=== PATIENT | female | born 1980 | race Caucasian/White ===

== ENCOUNTER → 2016-08-30 | Outpatient (CLI) | payer BC ==
[~2016-08-30] MED LIST: ASPEC81 PO; ASPI81TA28 PO; ATOR10TA88 PO; CMD/25 PO; CRDCD120 PO; ESCI1TAB6 PO; INDSR60 PO; LORA-741 PO; LPT10 PO; LSX40 PO; METH-589 PO; METH10TA6 PO; METO25TA3 PO; PLV75 PO; POTA10CA28 PO; PRED10TA PO; PRENTAB26 PO; TPZ5 PO; WARF5TAB7 PO
--- NOTE | 2016-08-30 13:52 | MAMMOGRAPHY REPORT ---
BILATERAL DIGITAL SCREENING MAMMOGRAM TOMOSYNTHESIS WITH CAD: 08/30/2016 CLINICAL HISTORY: Routine screening. Patient has no complaints. TECHNIQUE: Breast tomosynthesis in addition to standard 2D mammography was performed. Current study was also evaluated with a Computer Aided Detection (CAD) system. COMPARISON: Comparison is made to exam dated: 08/24/2015 mammogram - [facility]. BREAST COMPOSITION: There are scattered areas of fibroglandular density in both breasts. FINDINGS: No suspicious masses, calcifications, or areas of architectural distortion are noted in e ither breast. There has been no significant interval change compared to prior exams. Circumscribed benign-appearing 8 mm mass within the right upper outer quadrant is stable compared to the 2016 exam , and likely represents an intramammary lymph node. IMPRESSION: ACR BI-RADS CATEGORY 2: BENIGN There is no mammographic evidence of malignancy. A 1 year screening mammogram is recommended. The p atient will receive written notification of the results. Approximately 10% of breast cancers are not detected with mammography. A negative mammographic repor t should not delay biopsy if a clinically suggestive mass is present. Aleah Caba M.D. ah/:08/30/2016 12:39:56 Group Counselor: Sonia ARRIOLA(Prakash)(Leonel), [facility] letter sent: Normal 1/2 BI-RADS Code: ACR BI-RADS Category 2: Benign
== END | disposition home or self-care (01) ==
LOC: C.MAMM 09:03
PROVIDERS: ATTEND Family Medicine
DX: Z12.31 Encounter for screening mammogram for malignant neoplasm of breast (principal)

== ENCOUNTER 2017-02-14 12:53 | Emergency (ER) | payer BC ==
[~2017-02-14] VITALS: Ht 162.6 cm; Wt 80.6 kg
[2017-02-14 13:00] VITALS: Ht 162.6 cm; Wt 80.6 kg
[2017-02-14] MEDS ORDERED: METH-589 PO (13:10)
--- NOTE | 2017-02-14 14:03 | DIAGNOSTIC IMAGING REPORT ---
RIGHT WRIST 5 VIEWS CLINICAL HISTORY: Right wrist injury. FINDINGS: 5 views of the right wrist are obtained. No prior studies are available for comparison at the time of dictation. The skeletal structures are well mineralized. No fracture is seen. There is mild negative ulnar variance. The joint spaces of the wrist are preserved. The overlying soft tissues are within normal limits. A ring is present on the fourth finger. IMPRESSION: There is no radiographic evidence of right wrist fracture. Electronically signed by: Caesar Hernandez M.D. 02/14/2017 2:02 PM Dictated Date/Time: 02/14/2017 2:00 PM
--- NOTE | 2017-02-14 14:18 | EMERGENCY ROOM VISIT NOTE ---
ED Visit Note First contact with patient: 13:08 CHIEF COMPLAINT: Right arm injury 2 hours ago HISTORY OF PRESENT ILLNESS: Patient is a [id number] 86-year-old white female who presents to the emergency department for evaluation of pain in her right wrist. She states that the head of a jet ski accidentally closed on her right forearm about 2 hours ago while she was cleaning it. She notes pain in the ulnar aspect of the wrist that is worse with movement, including flexion. She applied ice but did not take any medications. She rates her pain an 8/10. She denies numbness or tingling. REVIEW OF SYSTEMS: Review of systems as per HPI. All other systems reviewed were negative. At least 6 systems reviewed. PMH: Electronic medical records are reviewed and summarized as above/below. See Problem List. SOCIAL HISTORY: Patient lives at home. PHYSICAL EXAM: Vital Signs: Reviewed Nurse's notes. CONSTITUTIONAL: Patient is a well-appearing 36-year-old white female who is awake and alert and laying on a gurney in no acute distress. She denies pack on her right forearm. MUSCULOSKELETAL: Examination of the right forearm do not demonstrate any obvious outward signs of trauma including significant soft tissue swelling or ecchymosis or laceration. She is tender to palpation over the ulnar aspect of the wrist. No pain over the radial aspect or over the anatomic snuffbox. She does not have any pain into the carpal or metacarpal region. She is pain with wrist extension and flexion. Elbow was nontender to palpation. Pronation and supination are full. Capillary refills less than 2 seconds. Distal pulses are intact. Sensation is intact. EMERGENCY DEPARTMENT COURSE: X-rays of the right wrist were obtained and negative for acute fracture. Patient was placed in a Velcro wrist lacer. Supportive care measures were discussed. Differential diagnosis includes fracture, contusion, sprain, neurovascular injury, compartment syndrome, among others. Medication reconciliation: I attest that I have personally reviewed the patient' s current medication list. Blood pressure screening : Patient was found to have normal blood pressure on screening and does not require follow-up. RIGHT WRIST 5 VIEWS CLINICAL HISTORY: Right wrist injury. FINDINGS: 5 views of the right wrist are obtained. No prior studies are available for comparison at the time of dictation. The skeletal structures are well mineralized. No fracture is seen. There is mild negative ulnar variance. The joint spaces of the wrist are preserved. The overlying soft tissues are within normal limits. A ring is present on the fourth finger. IMPRESSION: There is no radiographic evidence of right wrist fracture. Problem List Medical Problems: (1) Abdominal pain Status: Resolved (2) Acute cholecystitis Status: Resolved (3) Leukocytosis Status: Resolved (4) Sludge in gallbladder Status: Resolved Surgical Problems: (1) Hx laparoscopic cholecystectomy Status: Resolved (2) S/P appendectomy Status: Resolved Current/Historical Medications Scheduled Methimazole (Methimazole ), 5 MG PO DAILY Allergies Coded Allergies: No Known Allergies (Verified , 06/10/03) Vital Signs Date Time Temp Pulse Resp B/P (MAP) Pulse Ox O2 Delivery O2 Flow Rate FiO2 02/14/17 14:26 36.8 64 18 110/70 99 02/14/17 13:00 36.8 67 18 114/79 99 Room Air Departure Information Impression Primary Impression: Forearm contusion Referrals Sonia Robertson D.O. (PCP) Patient Instructions [facility] Additional Instructions Ibuprofen(Motrin, Advil) may be used for fever or pain. Use 600mg every six hours as needed. Take with food. Avoid using more than 2400mg in a 24 hour period. Do not use 2400mg per day for more than three consecutive days without physician direction. Prolonged inappropriate use can lead to stomach upset or ulcers. This medication can be taken if you need to drive, work, or perform activities which may be dangerous when taking narcotic pain medication. (AND/OR) Acetaminophen(Tylenol) may be used for fever or pain. Use 1000mg every six hours as needed. Avoid using more than 3000mg in a 24 hour period. This medication can be taken if you need to drive, work, or perform activities which may be dangerous when taking narcotic pain medication. Ice compresses for 20 minutes at a time four times daily for 2-3 days. Use the wrist lacer as instructed. Rest and elevate your injury. Continue current medications. Return to the ER immediately for any numbness, tingling, severe pain, extreme swelling in the extremity or as needed. Followup with your family doctor or orthopedic surgery if no improvement in 5-7 days.
[2017-02-14 14:26] VITALS: BP 110/70; PULSE 64; TEMP 36.8; O2SAT 99
[2017-03-07] MEDS ORDERED: PRED10TA PO (14:52)
[2017-03-07] MEDS ORDERED: TPZ5 PO (14:52)
[2017-03-07] MEDS ORDERED: CRDCD120 PO (14:52)
[2017-03-07] MEDS ORDERED: INDSR60 PO (14:52)
[2017-03-07] MEDS ORDERED: ASPEC81 PO (14:52)
[2017-03-07] MEDS ORDERED: LPT10 PO (14:52)
[2017-03-07] MEDS ORDERED: PLV75 PO (14:52)
[2017-04-07] MEDS ORDERED: CMD/25 PO (15:55)
[2017-04-07] MEDS ORDERED: PRENTAB26 PO (15:55)
== END 2017-02-14 14:25 | disposition home or self-care (01) ==
LOC: C.EDB 12:54 → C.EDD 14:25
DX: S50.11XA Contusion of right forearm, initial encounter (principal); W22.8XXA Striking against or struck by other objects, initial encounter

== ENCOUNTER 2017-03-03 01:19 | Inpatient (IN) | payer BC ==
[2017-03-03] VITALS (56 sets, daily range): BP systolic 102–148; BP diastolic 55–97; PULSE 70–108; TEMP 36.6; O2SAT 95–100; Ht 162.6 cm; Wt 79.4 kg
[~2017-03-03] VITALS: Ht 162.6 cm; Wt 79.4 kg
[~2017-03-03 01:19] MED LIST changes: -ASPEC81 PO; -ASPI81TA28 PO; -ATOR10TA88 PO; -CMD/25 PO; -CRDCD120 PO; -ESCI1TAB6 PO; -INDSR60 PO; -LORA-741 PO; -LPT10 PO; -LSX40 PO; -METH10TA6 PO; -METO25TA3 PO; -PLV75 PO; -POTA10CA28 PO; -PRED10TA PO; -PRENTAB26 PO; -TPZ5 PO; -WARF5TAB7 PO
[2017-03-03] MEDS ORDERED: HEPARIN SOD (PORCINE) 1000 UNIT/ML 10 ML VIAL ONE (01:25)
[2017-03-03] MEDS ORDERED: MIDAZOLAM HCL 1 MG/ML 2ML VIAL IV STA (01:25)
[2017-03-03] MEDS ORDERED: NiCARDipine HCL INJ 2.5 MG/ML 10 ML AMP ONE (01:25)
[2017-03-03] MEDS ORDERED: NITROGLYCERIN/D5W 100MCG/ML 20ML SYR ONE (01:26)
[2017-03-03] MEDS ORDERED: MIDAZOLAM HCL 1 MG/ML 2ML VIAL ONE ×2 (01:26→01:27)
[2017-03-03] MEDS ORDERED: FENTANYL CITRATE INJ 50 MCG/1 ML 2 ML VIAL ONE ×2 (01:26→02:00)
[2017-03-03 01:35] LABS: ISTAT CREATININE 0.5 mg/dl (0.6-1.3); ISTAT HEMOGLOBIN 14.3 g/dl (12.0-16.0); ISTAT IONIZED CALCIUM 1.14 mmol/l (1.12-1.32)
[2017-03-03 01:39] LABS: BASO % 0.1 %; BASO ABS # 0.01 K/uL (0-0.2); COMPLETE YES; EOS % 1.9 %; HEMATOCRIT 41.8 % (37-47); IG% 0.4 %; LYMPH % 33.5 %; LYMPH ABS # 2.86 K/uL (1.2-3.4); MEAN CELL VOLUME 86.2 fL (80-100); MEAN CORPUSCULAR HEMOGLOBIN 30.5 pg (25-34); MEAN CORPUSCULAR HGB CONC 35.4 g/dl (32-36); MEAN PLATELET VOLUME 9.3 fL (7.4-10.4); MONO % 13.7 %; NEUT % 50.4 %; PLATELET COUNT 333 K/uL (130-400); RED BLOOD COUNT 4.85 M/uL (4.2-5.4); WHITE BLOOD COUNT 8.54 K/uL (4.8-10.8)
[2017-03-03] MEDS ORDERED: DC ALL ANTICOAGULANTS ONE (01:45)
[2017-03-03] MEDS ORDERED: ONDANSETRON INJ 2 MG/ML 2 ML VIAL ONE (01:48)
[2017-03-03 01:51] LABS: PARTIAL THROMBOPLASTIN RATIO 0.9; PROTHROMBIN TIME (PATIENT) 10.2 SECONDS (9.0-12.0)
[2017-03-03] MEDS ORDERED: METOPROLOL TARTRATE 1 MG/ML VIAL ONE ×2 (01:53→08:38)
[2017-03-03 01:55] LABS: BLOOD UREA NITROGEN 7 mg/dl (7-18); BUN/CREATININE RATIO 11.2 (10-20); CALCIUM 8.6 mg/dl (8.5-10.1); CARBON DIOXIDE 21 mmol/L (21-32); CHLORIDE 110 mmol/L (98-107); CREATININE 0.61 mg/dl (0.60-1.20); GLUCOSE 113 mg/dl (70-99); POTASSIUM 3.3 mmol/L (3.5-5.1); SODIUM 142 mmol/L (136-145)
--- NOTE | 2017-03-03 01:56 | EMERGENCY ROOM VISIT NOTE ---
History Report prepared by Riki: Andrea Hernandez Under the Supervision of: Dr. Adama Carney M.D. First contact with patient: 01:23 Chief Complaint: HEART ALERT Stated Complaint: HEART ALERT History of Present Illness The patient is a 36 year old female who presents to the Emergency Room with complaints of sudden chest pain occurring prior to arrival. The patient states that she was sleeping, and she got crushing chest pain that radiated into her left arm and jaw. The patient denies any nausea or vomiting. She states that she does not have a history of heart issues. She states that she has not been doing any drugs, and she has not drank any alcohol, though she drank a few nights ago. The patient states that the pain is not worsened with movement. Source of History: patient Onset: prior to arrival Position: chest Quality: other (crushing) Timing: other (sudden) Associated Symptoms: No nausea, No vomiting Review of Systems See HPI for pertinent positives & negatives. A total of 10 systems reviewed and were otherwise negative. Past Medical & Surgical Medical Problems: (1) Abdominal pain (2) Acute cholecystitis (3) Leukocytosis (4) Sludge in gallbladder Surgical Problems: (1) Hx laparoscopic cholecystectomy (2) S/P appendectomy Family History FH: cancer FH: gallbladder disease FH: heart disease Hypertension Social History Smoking Status: Never Smoker Alcohol Use: none Drug Use: none Marital Status: Housing Status: lives with family Occupation Status: employed Current/Historical Medications Scheduled Methimazole (Methimazole ), 5 MG PO DAILY Allergies Coded Allergies: No Known Allergies (Verified , 03/03/17) Physical Exam Vital Signs Date Time Temp Pulse Resp B/P (MAP) Pulse Ox O2 Delivery O2 Flow Rate FiO2 03/03/17 03:16 84 17 115/72 (84) 98 03/03/17 03:05 85 17 124/76 (94) 97 03/03/17 01:58 36.6 83 18 115/72 99 Room Air 03/03/17 01:28 100 Nasal Cannula 03/03/17 01:28 36.7 114 18 145/85 100 Nasal Cannula 2.0 03/03/17 01:22 108 Physical Exam GENERAL: Patient is anxious appearing in moderate distress. HEENT: No acute trauma, normocephalic atraumatic, mucous membranes moist, no nasal congestion, no scleral icterus. NECK: No stridor, no adenopathy, no meningismus, trachea is midline. LUNGS: No dyspnea. Clear to auscultation and equal bilaterally. No wheeze, no rhonchi. HEART: Tachycardic rate and rhythm. No murmurs, rubs, gallops appreciated. ABDOMEN: Soft, nontender, bowel sounds positive, no masses appreciated, no peritonitis. BACK: No midline tenderness, no CVA tenderness EXTREMITIES: Normal motion all extremities, no cyanosis, no edema. NEUROLOGIC: Alert and oriented, no acute motor or sensory deficits, no focal weakness, cranial nerves grossly intact. SKIN: No rash, no jaundice, no diaphoresis. Medical Decision & Procedures ER Provider Diagnostic Interpretation: X ray results are stated below per my interpretation: Chest: 1 view: No infiltrate, no effusion, normal cardiac border. Normal Mediastinum Laboratory Results 03/03/17 00:48 Red Blood Count 4.85, Mean Corpuscular Volume 86.2, Mean Corpuscular Hemoglobin 30.5, Mean Corpuscular Hemoglobin Concent 35.4, Mean Platelet Volume 9.3, Neutrophils (%) (Auto) 50.4, Lymphocytes (%) (Auto) 33.5, Monocytes (%) (Auto) 13.7, Eosinophils (%) (Auto) 1.9, Basophils (%) (Auto) 0.1, Neutrophils # (Auto ) 4.31, Lymphocytes # (Auto) 2.86, Monocytes # (Auto) 1.17, Eosinophils # (Auto ) 0.16, Basophils # (Auto) 0.01 03/03/17 00:48 Test 03/03/17 00:48 03/03/17 01:22 03/03/17 01:23 03/03/17 02:18 White Blood Count 8.54 K/uL (4.8-10.8) Red Blood Count 4.85 M/uL (4.2-5.4) Hemoglobin 14.8 g/dL (12.0-16.0) Hematocrit 41.8 % (37-47) Mean Corpuscular Volume 86.2 fL (80-100) Mean Corpuscular Hemoglobin 30.5 pg (25-34) Mean Corpuscular Hemoglobin Concent 35.4 g/dl (32-36) Platelet Count 333 K/uL (130-400) Mean Platelet Volume 9.3 fL (7.4-10.4) Neutrophils (%) (Auto) 50.4 % Lymphocytes (%) (Auto) 33.5 % Monocytes (%) (Auto) 13.7 % Eosinophils (%) (Auto) 1.9 % Basophils (%) (Auto) 0.1 % Neutrophils # (Auto) 4.31 K/uL (1.4-6.5) Lymphocytes # (Auto) 2.86 K/uL (1.2-3.4) Monocytes # (Auto) 1.17 K/uL (0.11-0.59) Eosinophils # (Auto) 0.16 K/uL (0-0.5) Basophils # (Auto) 0.01 K/uL (0-0.2) RDW Standard Deviation 37.6 fL (36.4-46.3) RDW Coefficient of Variation 11.8 % (11.5-14.5) Immature Granulocyte % (Auto) 0.4 % Immature Granulocyte # (Auto) 0.03 K/uL (0.00-0.02) Prothrombin Time 10.2 SECONDS (9.0-12.0) Prothromb Time International Ratio 1.0 (0.9-1.1) Activated Partial Thromboplast Time 24.0 SECONDS (21.0-31.0) Partial Thromboplastin Ratio 0.9 Est Creatinine Clear Calc Drug Dose 133.0 ml/min Estimated GFR () 136.1 Estimated GFR (Non- 117.5 BUN/Creatinine Ratio 11.2 (10-20) Calcium Level 8.6 mg/dl (8.5-10.1) Magnesium Level 1.8 mg/dl (1.8-2.4) Total Creatine Kinase 52 U/L (26-192) Creatine Kinase MB 2.2 ng/ml (0.5-3.6) Creatine Kinase MB Ratio 4.2 (0-3.0) Troponin I 0.457 ng/ml (0-0.045) Triglycerides Level 189 mg/dl (0-150) Cholesterol Level 189 mg/dl (0-200) HDL Cholesterol 43 mg/dl LDL Cholesterol Direct 119 mg/dl LDL Cholesterol, Calculated mg/dl VLDL Cholesterol, Calculated 38 mg/dl Cholesterol/HDL Ratio 4.4 Bedside Hemoglobin 14.3 g/dl (12.0-16.0) Bedside Hematocrit 42 % (37-47) Bedside Sodium 140 mEq/L (135-144) Bedside Potassium 3.2 mEq/L (3.3-5.0) Bedside Chloride 107 mEq/L (101-112) Bedside Total CO2 18 mEq/l (24-31) Anion Gap 18.0 mmol/L (16-25) Bedside Blood Urea Nitrogen 5 mg/dl (7-18) Bedside Creatinine 0.5 mg/dl (0.6-1.3) Bedside Glucose (other) 116 mg/dl (70-99) Bedside Ionized Calcium (Nichol) 1.14 mmol/l (1.12-1.32) Bedside Troponin I 0.300 ng/ml (0-0.045) Kaolin Activated Coagulation Time 345 SECONDS (94-140) Laboratory results as reviewed by me. Medications Administered Medications (Trade) Dose Ordered Sig/Charito Route Start Time Stop Time Status Last Admin Dose Admin Midazolam HCl (Versed Inj) 1 mg NOW STAT IV 03/03/17 01:25 03/03/17 01:26 DC 03/03/17 01:29 1 MG ECG Indication: chest pain Rate (beats per minute): 101 Rhythm: sinus tachycardia Findings: ST depression (Anterior lead V1 and V2), ST elevation (Inferior and lateral) ED Course 0120: The patient was evaluated in room B1. A complete history and physical exam was performed. 0125: I discussed the patient's case with Dr. Maza, Cardiology, and he agrees that the patient has to go to the Breastfeeding Program Coordinator. I ordered Heparin IV Bolus 31212 units IV, Cardene IV 25mg IV, Versed inj 1mg IV 0126: Nitroglycerine/ D5w 100mcg/PA 20ML syringe 2000mcg IV, Heparin Sod/ NS 2 Units/PA 3000unit IV, Fentanyl Inj 100mcg IV, Versed Inj 2mg IV 0129: Discussed the patient's case with Dr. Paulson. The patient will be evaluated for further treatment and disposition. 0135: The patient is en route to the Breastfeeding Program Coordinator Medical Decision Differential: Cardiac Ischemia (STEMI, NSTEMI, Unstable Angina, etc), Aortic Dissection, Arrhythmia, Pulmonary Embolism, Pneumonia, Pneumothorax, MSK, Infectious, Pericarditis/Myocarditis, Esophageal Rupture, Gastrointestinal, amongst other pathologies entertained. 36 yr old female arrives from home via EMS after awaking with crushing left chest pain to shoulder/arm. STEMI by EKG in field thus called heart alert prior to arrival. Hypotensive with SLNTG thus given fluids by EMS in addition to ASA 324mg PO. Fentanyl IV with improvement in symptoms. On arrival BP improved and patient noting pain much better though is now in right arm as well. Repeat EKG consistent with large area STEMI. CXR clear without mediastinal widening. Excellent pulses bilateral lower legs. Mild tachy though this likely is due to anxiety with situation. Given Versed to help calm patient en route to pie bakery laborer. Dr Johnson Interventionalist at bedside at agrees with plan for cath. Taken to cath with good Cr and mild Trop elevation. Dr Johnson contacted post cath requesting I order CTA Chest as patient with right coronary spasm but no occlusion. CTA negative for dissection and report forwarded to hospitalist. Medication Reconcilliation Current Medication List: was personally reviewed by me Blood Pressure Screening Patient's blood pressure: Elevated blood pressure Blood pressure disposition: Elevated BP felt to be situational Consults Consulting Physician: Dr. Maza, Cardiology I discussed the patient's case with Dr. Maza, Cardiology, and he agrees that the patient has to go to the Breastfeeding Program Coordinator. Additional Consults: Time Called: 0127 Consulted Physician: Dr. Paulson Returned Call: 0129 Additional Comments: Discussed the patient's case with Dr. Paulson. The patient will be evaluated for further treatment and disposition. Impression Primary Impression: STEMI (ST elevation myocardial infarction) Critical Care I have personally spent greater than 35 minutes of critical care time in the direct management of this patient. This was a life/limb threatening event. This includes time spent evaluating patient, direct bedside care, chart review, placing orders, interpretation of diagnostic studies, discussion with consultants, patient, and family members, as well as other required patient management activities. This 35 minutes is in excess of all separately billable procedures. Scribe Attestation The scribe's documentation has been prepared under my direction and personally reviewed by me in its entirety. I confirm that the note above accurately reflects all work, treatment, procedures, and medical decision making performed by me. Departure Information Dispostion Being Evaluated By Hospitalist Referrals Sonia Robertson D.O. (PCP) Forms WORK / SCHOOL INSTRUCTIONS, HOME CARE DOCUMENTATION FORM, IMPORTANT VISIT INFORMATION Patient Instructions My [facility]
[2017-03-03 02:12] LABS: CKMB/CK RATIO 4.2 (0-3.0)
[2017-03-03] MEDS ORDERED: EPTIFIBATIDE 0.75 MG/ML 75MG VIAL IV ONE (02:42)
[2017-03-03] MEDS ORDERED: EPTIFIBATIDE 2 MG/ML 10 ML VIAL IV ONE (02:42)
[2017-03-03] MEDS ORDERED: ATROPINE SULFATE 0.1 MG/ML 5ML SYR IV PRN (02:45)
[2017-03-03] MEDS ORDERED: OPTIRAY 320 IV PRN (02:45)
[2017-03-03] MEDS ORDERED: NITROGLYCERIN 0.4 MG SL PER TAB CHARGE SL PRN (02:45)
[2017-03-03] MEDS ORDERED: LORAZEPAM 0.5 MG TAB PO PRN (02:45)
[2017-03-03] MEDS ORDERED: ACETAMINOPHEN 325 MG TAB PO PRN (02:45)
[2017-03-03] MEDS ORDERED: ONDANSETRON INJ 2 MG/ML 2 ML VIAL IV PRN (02:45)
[2017-03-03] MEDS ORDERED: ONDANSETRON INJ 8 MG in DEXTROSE 5% 50ML 50 ML IV PRN (02:45)
[2017-03-03] MEDS ORDERED: EPTIFIBATIDE BOLUS / DRIP IV ONE (02:45)
[2017-03-03] MEDS ORDERED: EPTIFIBATIDE BOLUS / DRIP IV STA ×2 (02:54)
[2017-03-03 03:22] LABS: CHOLESTEROL 189 mg/dl (0-200); CHOLESTEROL/HDL RATIO 4.4; HDL CHOLESTEROL 43 mg/dl; MAGNESIUM 1.8 mg/dl (1.8-2.4); TRIGLYCERIDES 189 mg/dl (0-150); VERY LOW DENSITY LIPOPROT CALC 38 mg/dl
[2017-03-03] MEDS ORDERED: SODIUM CHLORIDE 0.9% 1000ML 1,000 ML IV SCH (03:30)
[2017-03-03] MEDS: EPTIFIBATIDE INJ 75 MG PREMIXED IV SCH ×3 (04:45→11:27)
[2017-03-03] MEDS ORDERED: POTASSIUM CHLR 10 MEQ / WTR 10 MEQ in PREMIXED WATER 100 ML IV STA (04:55)
[2017-03-03] MEDS: NSS + 20MEQ KCL 1000ML 1,000 ML IV SCH ×2 (05:24→15:21)
[2017-03-03] MEDS: MoRPHine SULFATE 2 MG/ML CARP IV PRN ×3 (05:24→23:52)
[2017-03-03 06:06] LABS: MEAN CELL VOLUME 86.6 fL (80-100); MEAN CORPUSCULAR HEMOGLOBIN 30.4 pg (25-34); MEAN CORPUSCULAR HGB CONC 35.1 g/dl (32-36); MEAN PLATELET VOLUME 8.8 fL (7.4-10.4); PLATELET COUNT 275 K/uL (130-400); RED BLOOD COUNT 4.04 M/uL (4.2-5.4); WHITE BLOOD COUNT 11.81 K/uL (4.8-10.8)
--- NOTE | 2017-03-03 06:40 | DIAGNOSTIC IMAGING REPORT ---
CHEST COMBO ANGIOGRAPHY CLINICAL HISTORY: Chest pain TECHNIQUE: Transaxial acquisition with multi axial reformatted images COMPARISON STUDY: None FINDINGS: Normal caliber thoracic aorta. No evidence for aneurysm or dissection. Pulmonary vasculature enhances appropriately. There is subtle reticular nodular changes throughout both hemithoraces. Atypical inflammatory process is considered. No significant hilar or mediastinal adenopathy. IMPRESSION: 1. Negative thoracic aorta. 2. No evidence of pulmonary embolus. 3. Groundglass nodular changes bilaterally with slight interstitial prominence. An atypical inflammatory process is considered. The above report was generated using voice recognition software. It may contain grammatical, syntax or spelling errors. Electronically signed by: Arnie Callaway M.D. 03/03/2017 6:38 AM Dictated Date/Time: 03/03/2017 6:32 AM
[2017-03-03 06:45] LABS: BUN/CREATININE RATIO 8.7 (10-20); CALCIUM 7.9 mg/dl (8.5-10.1); CREATININE 0.52 mg/dl (0.60-1.20); MAGNESIUM 1.6 mg/dl (1.8-2.4); POTASSIUM 4.1 mmol/L (3.5-5.1)
[2017-03-03 06:46] LABS: ESTIMATED AVERAGE GLUCOSE 105 mg/dl; HA1C FLAG Normal (Normal)
[2017-03-03] MEDS ORDERED: MAGNESIUM SULFATE 1GM / D5W 1 GM in PREMIXED IN D5W 100 ML IV STA (06:47)
[2017-03-03] MEDS ORDERED: PERFLUTREN LIPID MICROSPHERE (DEFINITY) IV ONE (06:50)
[2017-03-03 06:57] LABS: PHOSPHORUS 2.1 mg/dl (2.5-4.9)
--- NOTE | 2017-03-03 07:14 | DIAGNOSTIC IMAGING REPORT ---
SINGLE VIEW CHEST CLINICAL HISTORY: Atypical chest pain. FINDINGS: An AP, portable, upright chest radiograph is obtained. No prior studies are available for comparison at the time of dictation. The examination is degraded by portable technique and patient rotation. The cardiomediastinal silhouette is unremarkable. The lungs and pleural spaces are clear. No pneumothorax is seen. The bony thorax is grossly intact. IMPRESSION: No acute cardiopulmonary abnormality. Electronically signed by: Caesar Hernandez M.D. 03/03/2017 7:12 AM Dictated Date/Time: 03/03/2017 7:11 AM
[2017-03-03] MEDS: ASPIRIN 81 MG ECTAB PO SCH (07:45)
[2017-03-03] MEDS: CLOPIDOGREL BISULFATE 75 MG TAB PO SCH (07:46)
[2017-03-03] MEDS: ATORVASTATIN 40 MG TAB PO SCH (07:46)
--- NOTE | 2017-03-03 07:51 | HISTORY & PHYSICAL EXAMINATION ---
DATE OF ADMISSION: 03/03/2017 PRIMARY CARE PHYSICIAN: Dr. Robertson. CHIEF COMPLAINT: Woke up from sleep with severe chest pain. HISTORY OF PRESENT COMPLAINT: She is a 36-year-old female with significant past medical history of hyperthyroidism, apparently woke up from sleep with terrible chest pain associated with nausea, sweating, apprehension, and the pain radiated to left arm. Her called 911 and she was brought into the Emergency Room. EKG did show acute ST elevation MS involving the inferolateral part of the heart. She went to the warehouse laborer and she was noted to have blockage in LAD and that was dilated with balloon angioplasty, and following that she was admitted to ICU for continuation of care. She denies to any chest pain before or any symptoms of heart disease before. She does have borderline high cholesterol but she has not been taking any medications for that. She has been on methimazole for hyperthyroidism, which she takes occasionally when she feels palpitation. She does not have any significant family history of heart disease. PAST MEDICAL HISTORY: Significant for hyperthyroidism. PAST SURGICAL HISTORY: Appendectomy as a child and cholecystectomy. FAMILY HISTORY: Nothing significant. SOCIAL HISTORY: She is . She has 1 daughter. She lives with her . She does not smoke, she drinks very rarely and she has been reasonably ambulant. ALLERGIES: No allergy. MEDICATIONS: She has been on methimazole 5 mg daily and she takes this as needed. She does not take any NSAIDs. REVIEW OF SYSTEMS: CENTRAL NERVOUS SYSTEM: No headache, no blurred vision, no numbness or tingling in the extremities. RESPIRATORY: No fever, chills or rigors. No cough or phlegm. No shortness of breath. CARDIOVASCULAR: Did have severe chest pain with radiation to left arm and left elbow associated with shortness of breath, nausea and dizziness. GASTROINTESTINAL: No abdominal pain, nausea and/or vomiting. GENITOURINARY: No problem with urine and/or bowel habit. MUSCULOSKELETAL: No acute arthritis. GENERAL: She did not have any rash and/or enlargement of lymph nodes. PHYSICAL EXAMINATION: GENERAL: In the ICU, following cardiac cath, she complains of some back pain and she is very anxious, and her chest pain seems to be resolved with nitro. She has had chest pain following cardiac cath in the ICU as well. VITAL SIGNS: Temperature 36.6, pulse 79, blood pressure 123/85, saturation 99%. HEENT: Unremarkable. NECK: Supple. No JVD, no bruit. CHEST: Clear to auscultate bilaterally. HEART: S1, S2 regular, no murmur. ABDOMEN: Soft, benign, nontender, no organomegaly. Bowel sounds present. EXTREMITIES: Negative for any edema. MUSCULOSKELETAL: Did not show any acute arthritis involving any joint. CENTRAL NERVOUS SYSTEM: She is alert, awake, oriented x3. No focal sensory and/or motor deficit appreciated. LABORATORY DATA: Noted today, white count is 8.54, H&H 14.8/41.8, platelet is 333. Sodium 140, potassium 3.2, chloride 107, CO2 of 18, BUN 5, creatinine 0.61. Random glucose 113. Hemoglobin A1c pending. Magnesium 1.8, calcium 8.6. Total CK was 52 and MB 2.2 and MB ratio 4.2. Troponin was 0.457. Triglyceride 189, cholesterol 189, LDL 119, HDL 43. INR 1.0 and PT ratio 0.9. Active coagulation time kaolin was 345. CTA of the Chest::1. Negative thoracic aorta. 2. No evidence of pulmonary embolus. 3. Groundglass nodular changes bilaterally with slight interstitial prominence. An atypical inflammatory process is considered. EKG showed acute ST elevation MS involving inferolateral segment of the heart with reciprocal changes in the anterior leads. IMPRESSION AND PLAN: 1. Acute ST elevation myocardial infarction, inferolateral region. The patient was taken to warehouse laborer and left anterior descending artery was noted to be obstructed which was dilated with balloon angioplasty by Dr. Maza. She has been started on aspirin anticoagulation with Integrilin and also nitrate and cholesterol medications. Another set of troponin will be done to see the trend. She will be followed by cardiology. Most likely she will echocardiogram to evaluate heart function. She still has ST elevation following the cardiac catheterization involving the same region. 2. Hyperlipidemia, seems to be mildly elevated. Her cholesterol level that was done in 03/2016, total cholesterol was 238, HDL 57, LDL 171 and triglyceride 100. She was started on a statin which will be continued. 3. Hyperthyroidism. She has a history of Graves' disease. She has been on methimazole 5 mg daily but she takes it occasionally when she feels palpitation. We will check free T3 and free T4 level and go from there. 4. Gastrointestinal prophylaxis with Protonix. 5. Deep venous thrombosis prophylaxis, has been on Integrilin and will continue that. 6. Code status. Discussed with the patient, she will be a full code. In my clinical judgment, the beneficiary meets criteria as per CMS for 2-midnight stay in the hospital. MTDMatt
--- NOTE | 2017-03-03 08:12 | OPERATIVE REPORT ---
DATE OF OPERATION: 03/03/2017 CATHETERIZATION AND PERCUTANEOUS CORONARY INTERVENTION INDICATION: Chest pain, hyperacute ST elevation, onset at rest in a 36-year-old female with few, if any, risk factors for coronary artery disease. PROCEDURE PERFORMED: Left heart cath, coronary cineangiography, left ventriculography, PTCA apical LAD, radial artery interpretation and supervision method. After local infiltration of 2% lidocaine, a 6-Israeli sheath was placed in the right radial artery. A 6-Israeli AR2 guiding catheter was advanced under fluoroscopic guidance to the central circulation where it was aspirated and flushed. After confirmation of adequate waveform, it was advanced into the right coronary artery. Cineangiograms of the right coronary artery obtained and reviewed. A 0.014-inch pilot plant supervisor wire was advanced through the guiding catheter across the ostial stenosis to the apical RCA. Intracoronary nitroglycerin was administered. Subsequent cineangiograms were obtained and the wire was removed from the coronary artery. The guiding catheter was removed from the right coronary artery under fluoroscopic guidance, removed from the body over wire, the sheath was aspirated and flushed. A 6-Israeli EBU 3.5 guiding catheter was advanced under fluoroscopic guidance to the central circulation where it was aspirated and flushed. After confirmation of adequate waveform, it was advanced into the left main. Cineangiograms of the left coronary artery were obtained and reviewed. A 0.014-inch pilot plant supervisor wire was advanced through the guiding catheter across the apical total occlusion of the LAD. A 2.0 x 15 angioplasty catheter was positioned in the apical LAD and inflated to nominal pressure for less than 1 minute on multiple occasions. Multiple doses of intracoronary nitroglycerin were administered, sublingual nitroglycerin was administered. Final cineangiograms were obtained with the wire removed from the coronary artery, the guiding catheters removed from the left main under fluoroscopic guidance, removed from the body over wire, the sheath was aspirated and flushed. A compression device was applied over the right radial artery. The patient was returned to her room in good condition free of chest pain with persistent hyperacute ST elevation on the monitor. COMPLICATIONS: None. FINDINGS: Left main is normal. Left anterior descending artery is moderate in caliber with an apical flush total occlusion and apical diagonal branch has MAYELA grade 2 flow. Left circumflex, circumflex marginal and posterolateral branches are free of significant disease. The right coronary artery is moderate to large in caliber with an ostial subtotal occlusion that responded to intracoronary nitroglycerin with complete resolution, dye efflux of a deep-seated guide. Posterior descending artery, the posterior extension of right coronary, posterolateral branches arising were all free of significant disease. Final cineangiograms demonstrate persistent MAYELA grade 2 flow in the apical LAD and diagonal branch. No staining, no thrombus, no dissection is noted in the apical LAD. 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 RECOMMENDATIONS: CTA chest is being done on the way to the ICU. No beta jarad is administered. The patient is administered aspirin and Integrilin will be continued until pending results of CTA. I attest to the content of the Intraoperative Record and any orders documented therein. Any exceptions are noted below. MTDD
[2017-03-03] MEDS ORDERED: LORAZEPAM 2 MG/ML 1 ML VIAL IV STA (08:28)
[2017-03-03] MEDS ORDERED: METHYLPREDNISOLONE IV 125 MG in SYRINGE 0 ML IV ONE ×2 (08:30→08:45)
[2017-03-03] MEDS ORDERED: LORAZEPAM 2 MG/ML 1 ML VIAL ONE (08:32)
[2017-03-03] MEDS ORDERED: METOPROLOL TARTRATE 1 MG/ML VIAL IV STA (08:32)
[2017-03-03] MEDS ORDERED: METOPROLOL TARTRATE 25 MG TAB PO ONE (09:07)
[2017-03-03] MEDS ORDERED: DILTIAZEM BOLUS / DRIP IV STA ×2 (09:13→09:19)
[2017-03-03 09:14] LABS: PREG INTERNAL NEGATIVE QC NEG CLEAR BACKGROUND; PREG INTERNAL POSITIVE QC POS CONTROL LINE
--- NOTE | 2017-03-03 09:15 | ECHOCARDIOGRAM REPORT ---
*NOTICE TO RECEIVING LIBERTARIAN AGENCY This information is strictly Confidential and protected under [place] law. [place] law prohibits you from making any further disclosure of this information unless further disclosure is expressly permitted by the written consent of the person to whom it pertains or is authorized by law. A general authorization for the release of medical or other information is not sufficient for this purpose. Hospital accepts no responsibility if the information is made available to any other person, INCLUDING THE PATIENT. Interpretation Summary * Name: AURE DUNAWAY Study Date: 03/03/2017 06:26 AM BP: 129/81 mmHg * Patient Location: E111 HR: 108 * : 1980 (M/d/yyyy) Gender: Female Height: 64 in * Age: 36 yrs Ethnicity: CA Weight: 187 lb * Ordering Physician: DARA DOMINGUEZ DO * Performed By: Penny De La Vega RCS * * Reason For Study: AMI * BSA: 1.9 m2 * -- Conclusions -- * There is normal left ventricular wall thickness. * There is a moderate sized apical and lateral wall motion abnormality with hypokinesis of the segments. * Normal contractility to hyperdynamic contractility is noted in the remaining segments. * Left ventricular systolic function is low normal. * The LV Ejection Fraction = 50-55%. * There is mild tricuspid regurgitation. * The pulmonary artery systolic pressure is normal to borderline elevated , wt PA systolic pressure of 40 mm Hg. Procedure Details * A complete two-dimensional transthoracic echocardiogram was performed (2D, M-mode, Doppler and color flow Doppler). * A contrast injection of Definity was performed to improve assessment of LV function. * Contrast was injected into an intravenous site in the left arm. * One vial of Definity ultrasound contrast was diluted in normal saline to a total volume of 10 ml. A total of '2' ml of solution was administered during imaging. * Lot # [id number] of Definity utilized for procedure. * Expiration date MAR 07. * The attending nurse who injected the contrast agent was TYRONE BOLDEN RN. Left Ventricle * The left ventricle is normal in size. * There is normal left ventricular wall thickness. * Left ventricular systolic function is low normal. * Ejection Fraction = 50-55%. * There is a moderate sized apical and lateral wall motion abnormality with hypokinesis of the segments. Right Ventricle * The right ventricle is normal size. * The right ventricular systolic function is normal as assessed by tricuspid annular plane systolic excursion (TAPSE) (normal >1.5 cm). Atria * The left atrial size is normal. * Right atrial size is normal. * There is no evidence of atrial septal defect, but resolution does not allow assessment for a patent foramen ovale. Mitral Valve * The mitral valve is normal. * There is no mitral valve stenosis. * Significant mitral regurgitation is absent. Tricuspid Valve * The tricuspid valve is normal. * There is no tricuspid stenosis. * There is mild tricuspid regurgitation. Aortic Valve * The aortic valve is trileaflet. * Aortic stenosis is absent. * There is no significant aortic regurgitation. Pulmonic Valve * The pulmonary valve is not well seen, but the Doppler examination is normal without significant regurgitation or stenosis. Great Vessels * The aortic root and proximal ascending aorta are normal sized. Pericardium/Pleural * There is no pericardial effusion. Great Vessels * Normal inferior vena cava diameter and respiratory variation suggests normal central venous pressure. Left Ventricular Diastolic Function * The LV diastolic function is normal. MMode 2D Measurements and Calculations IVSd 1.3 cm IVSs 1.7 cm LVIDd 3.9 cm LVIDs 2.1 cm LVPWd 1.3 cm LVPWs 1.2 cm IVS/LVPW 1.0 FS 47.4 % EDV(Teich) 67.1 ml ESV(Teich) 13.9 ml EF(Teich) 79.3 % EDV(cubed) 60.7 ml ESV(cubed) 8.9 ml EF(cubed) 85.4 % % IVS thick 31.6 % % LVPW thick -4.23 % LV mass(C)d 175.4 grams LV mass(C)dI 92.3 grams/m\S\2 LV mass(C)s 94.7 grams LV mass(C)sI 49.8 grams/m\S\2 SV(Teich) 53.2 ml SI(Teich) 28.0 ml/m\S\2 SV(cubed) 51.8 ml SI(cubed) 27.3 ml/m\S\2 Ao root diam 2.6 cm Ao root area 5.5 cm\S\2 ACS 1.8 cm LA dimension 3.2 cm LA/Ao 1.2 LVOT diam 2.0 cm LVOT area 3.2 cm\S\2 LVAd ap4 32.0 cm\S\2 LVLd ap4 8.0 cm EDV(MOD-sp4) 106.4 ml EDV(sp4-el) 109.5 ml LVAs ap4 20.0 cm\S\2 LVLs ap4 7.1 cm ESV(MOD-sp4) 47.2 ml ESV(sp4-el) 48.1 ml EF(MOD-sp4) 55.6 % EF(sp4-el) 56.0 % SV(MOD-sp4) 59.2 ml SI(MOD-sp4) 31.2 ml/m\S\2 SV(sp4-el) 61.4 ml SI(sp4-el) 32.3 ml/m\S\2 Doppler Measurements and Calculations MV E max barbara 127.8 cm/sec MV P1/2t max barbara 135.4 cm/sec MV P1/2t 88.3 msec MVA(P1/2t) 2.5 cm\S\2 MV dec slope 448.9 cm/sec\S\2 MV dec time 0.18 sec Ao V2 max 152.4 cm/sec Ao max PG 9.3 mmHg Ao max PG (full) 4.6 mmHg YVETTE(V,A) 2.2 cm\S\2 YVETTE(V,D) 2.2 cm\S\2 LV V1 max PG 4.7 mmHg LV V1 max 108.4 cm/sec PA V2 max 125.9 cm/sec PA max PG 6.3 mmHg TR max barbara 331.8 cm/sec
[2017-03-03] MEDS ORDERED: HEPARIN IV LOW DOSE NO BOLUS STA (09:19)
[2017-03-03 09:27] LABS: BENZODIAZEPINE, URINE POS (NEG); COCAINE,URINE NEG (NEG); PHENCYCLIDINE, URINE NEG (NEG)
[2017-03-03] MEDS ORDERED: DILTIAZEM HCL 5 MG/ML 5 ML VIAL IV STA (09:35)
[2017-03-03 09:41] LABS: ALKALINE PHOSPHATASE 79 U/L (45-117); ALT/SGPT 97 U/L (12-78); AST/SGOT 164 U/L (15-37); THYROID STIMULATING HORMONE < 0.005 uIu/ml (0.300-4.500)
[2017-03-03] MEDS ORDERED: DILTIAZEM HCL INJ 125 MG in DEXTROSE 5% 100ML IV PRN (09:45)
[2017-03-03] MEDS ORDERED: PROPRANOLOL HCL 10 MG TAB PO ONE ×2 (10:00→12:00)
--- NOTE | 2017-03-03 10:00 | Cardiology Consultation ---
Cardiology Consultation Date of Consultation: Mar 03, 2017 History of Present Illness Romina Mosley is a 36 year old female seen in cardiology consultation per the request of Dr. Paulson for ongoing care of ST segment elevation myocardial infarction due to severe coronary vasospasm. This is the patient's first encounter with cardiology, her PCP is Dr Sonia Robertson of [facility]. The patient reports that she has a history of hyperthyroidism that dates back several years describes that she has been diagnosed with Graves' disease in the past. She has a long-standing history of associated palpitations. She is supposed to be on methimazole 5 mg daily that she notes that she took this routinely for several years, but recently, she has not been taking it regularly as she has been feeling well. Over the last few days however she has noted increased palpitations. Yesterday, during the day she felt well with no complaints. At approximately midnight she felt acute onset of severe chest discomfort described as a pressure that woke her from sleep. She presents to the emergency department where initial EKG revealed severe inferior and lateral ST segment elevation with reciprocal ST segment depression in the anteroseptal leads. She was taken to the cardiac catheterization laboratory in emergent fashion by the manager reporting guard immigration and was found to have severe vasospasm of the distal LAD as well as the ostium of the right coronary artery. She underwent plain balloon angioplasty of the distal LAD and right coronary artery vasospasm improved somewhat with administration of intracoronary nitroglycerin. The patient has received aspirin and clopidogrel and is on an Integrilin infusion and was transferred to the intensive care unit for ongoing care. She has been found to have hyperthyroidism based on her thyroid indices. She is now in the surgical intensive care unit and is resting comfortably, she notes that she still has a 3/10 intensity chest discomfort which is improved compared to tendon and discomfort that prompted her presentation but she still notes that it is there. She also notes occasional palpitations and several brief runs of nonsustained ventricular tachycardia noted on the monitor. Her follow-up troponin early this morning was elevated at 27 NG per mL. She has had a resting transthoracic echocardiogram which I have reviewed independently and reveals a moderate sized wall motion abnormality encompassing the apical inferoseptum, apical anteroseptal wall, apical wall, and the lateral wall at the apical and mid levels. The remaining myocardial segments contract normally or hyperdynamic contractibility with overall normal left ventricular ejection fraction in the range of 50-55%. Trace to mild tricuspid regurgitation was noted with calculated pulmonary artery systolic pressure at the upper limit of normal to perhaps mildly elevated with a calculated pulmonary artery systolic pressure around 40 mmHg. History Past Medical History: Hyperthyroidism Palpitations previously associated with hyperthyroidism Past Surgical History: Remote appendectomy as a child Cholecystectomy Social History: She is and has a daughter. She was there has been. She does not smoke and she takes alcohol very rarely. Family History: No family history of heart disease she has a grandparent with history of strokes Review Of Systems See above for pertinent positives & negatives. A total of 10 systems reviewed and were otherwise negative. Allergies Coded Allergies: No Known Allergies (Verified , 03/03/17) Medications Reported Home Medications Medications Dose Route/Sig Max Daily Dose Days Date Category Methimazole (Methimazole) 5 Mg Tab 5 Mg PO DAILY 02/14/17 Reported Physical Exam Vital Signs (Last 8hrs): Last 8 Hrs Date Time Temp Pulse Resp B/P (MAP) Pulse Ox O2 Delivery O2 Flow Rate FiO2 03/03/17 08:38 106 124/83 03/03/17 08:32 106 124/83 03/03/17 06:41 106 17 124/83 (102) 99 03/03/17 06:31 97 21 129/80 (91) 99 03/03/17 06:01 93 19 135/87 (107) 99 03/03/17 05:31 96 20 129/81 (88) 99 03/03/17 05:16 99 20 133/88 (93) 100 03/03/17 05:01 100 26 122/86 (89) 100 03/03/17 04:52 84 17 116/80 (90) 99 03/03/17 04:46 73 16 116/90 (93) 100 03/03/17 04:31 79 14 123/85 (96) 99 03/03/17 04:16 70 17 117/84 (99) 100 03/03/17 04:01 86 27 125/83 (91) 100 03/03/17 03:46 76 19 114/79 (87) 99 03/03/17 03:31 74 20 118/69 (92) 100 03/03/17 03:16 84 17 115/72 (84) 98 03/03/17 03:05 85 17 124/76 (94) 97 03/03/17 01:58 36.6 83 18 115/72 99 Room Air General Appearance: Alert and Oriented x3. NAD. Head: Normocephalic Atraumatic. Eyes: PERRLA, EOMI, conjunctiva and sclera clear Neck: Supple. No carotid bruits noted. No JVD. No HJD. Respiratory: Breath sounds clear to auscultation bilaterally. No w/r/r. Cardiovascular: Reg rate and rhythm. S1 and S2 noted. No murmurs, rubs, gallops. PMI non displace. Abdomen: Normal bowel sounds, soft nontender. no abdominal bruits. Extremities: No edema, no clubbing or cyanosis. distal pulses 2/4 bilaterally. Neuro: No focal deficits. Psychiatric: Normal affect. Data Last 24 Hours Test 03/03/17 00:00 03/03/17 00:48 03/03/17 01:22 03/03/17 01:23 Urine Opiates Screen POS Urine Methadone, Qualitative NEG Urine Barbiturates NEG Urine Phencyclidine (PCP) Level NEG Ur Amphetamine/Methamphetamine NEG MDMA (Ecstasy) Screen NEG Urine Benzodiazepines Screen POS Urine Cocaine Metabolite NEG Urine Marijuana (THC) NEG White Blood Count 8.54 K/uL Red Blood Count 4.85 M/uL Hemoglobin 14.8 g/dL Hematocrit 41.8 % Mean Corpuscular Volume 86.2 fL Mean Corpuscular Hemoglobin 30.5 pg Mean Corpuscular Hemoglobin Concent 35.4 g/dl Platelet Count 333 K/uL Mean Platelet Volume 9.3 fL Neutrophils (%) (Auto) 50.4 % Lymphocytes (%) (Auto) 33.5 % Monocytes (%) (Auto) 13.7 % Eosinophils (%) (Auto) 1.9 % Basophils (%) (Auto) 0.1 % Neutrophils # (Auto) 4.31 K/uL Lymphocytes # (Auto) 2.86 K/uL Monocytes # (Auto) 1.17 K/uL Eosinophils # (Auto) 0.16 K/uL Basophils # (Auto) 0.01 K/uL RDW Standard Deviation 37.6 fL RDW Coefficient of Variation 11.8 % Immature Granulocyte % (Auto) 0.4 % Immature Granulocyte # (Auto) 0.03 K/uL Prothrombin Time 10.2 SECONDS Prothromb Time International Ratio 1.0 Activated Partial Thromboplast Time 24.0 SECONDS Partial Thromboplastin Ratio 0.9 Sodium Level 142 mmol/L Potassium Level 3.3 mmol/L Chloride Level 110 mmol/L Carbon Dioxide Level 21 mmol/L Anion Gap 11.0 mmol/L 18.0 mmol/L Blood Urea Nitrogen 7 mg/dl Creatinine 0.61 mg/dl Est Creatinine Clear Calc Drug Dose 133.0 ml/min Estimated GFR () 136.1 Estimated GFR (Non- 117.5 BUN/Creatinine Ratio 11.2 Random Glucose 113 mg/dl Estimated Average Glucose 105 mg/dl Hemoglobin A1c 5.3 % Calcium Level 8.6 mg/dl Magnesium Level 1.8 mg/dl Total Creatine Kinase 52 U/L Creatine Kinase MB 2.2 ng/ml Creatine Kinase MB Ratio 4.2 Troponin I 0.457 ng/ml Triglycerides Level 189 mg/dl Cholesterol Level 189 mg/dl HDL Cholesterol 43 mg/dl LDL Cholesterol Direct 119 mg/dl LDL Cholesterol, Calculated mg/dl VLDL Cholesterol, Calculated 38 mg/dl Cholesterol/HDL Ratio 4.4 Bedside Hemoglobin 14.3 g/dl Bedside Hematocrit 42 % Bedside Sodium 140 mEq/L Bedside Potassium 3.2 mEq/L Bedside Chloride 107 mEq/L Bedside Total CO2 18 mEq/l Bedside Blood Urea Nitrogen 5 mg/dl Bedside Creatinine 0.5 mg/dl Bedside Glucose (other) 116 mg/dl Bedside Ionized Calcium (Nichol) 1.14 mmol/l Bedside Troponin I 0.300 ng/ml Test 03/03/17 01:52 03/03/17 02:18 03/03/17 05:59 03/03/17 09:05 Kaolin Activated Coagulation Time 186 SECONDS 345 SECONDS White Blood Count 11.81 K/uL Red Blood Count 4.04 M/uL Hemoglobin 12.3 g/dL Hematocrit 35.0 % Mean Corpuscular Volume 86.6 fL Mean Corpuscular Hemoglobin 30.4 pg Mean Corpuscular Hemoglobin Concent 35.1 g/dl RDW Standard Deviation 37.3 fL RDW Coefficient of Variation 11.7 % Platelet Count 275 K/uL Mean Platelet Volume 8.8 fL Sodium Level 138 mmol/L Potassium Level 4.1 mmol/L Chloride Level 108 mmol/L Carbon Dioxide Level 23 mmol/L Anion Gap 7.0 mmol/L Blood Urea Nitrogen 5 mg/dl Creatinine 0.52 mg/dl Est Creatinine Clear Calc Drug Dose 156.8 ml/min Estimated GFR () 143.5 Estimated GFR (Non- 123.8 BUN/Creatinine Ratio 8.7 Random Glucose 110 mg/dl Calcium Level 7.9 mg/dl Phosphorus Level 2.1 mg/dl Magnesium Level 1.6 mg/dl Troponin I 26.700 ng/ml Free Thyroxine 2.78 ng/dl Free Triiodothyronine 7.67 pg/ml Human Chorionic Gonadotropin, Quant < 1 mIU/mL Urine Test NEG Test 03/03/17 09:29 Last Resulted 03/03/17 05:59 Last Resulted 03/03/17 05:59 Past 24 Hours Test 03/03/17 00:48 03/03/17 05:59 03/03/17 09:29 Range/Units Creatine Kinase MB 2.2 0.5-3.6 ng/ml Creatine Kinase MB Ratio 4.2 H 0-3.0 Prothromb Time International Ratio 1.0 0.9-1.1 Prothrombin Time 10.2 9.0-12.0 SECONDS Total Creatine Kinase 52 26-192 U/L Troponin I 0.457 *H 26.700 *H 0-0.045 ng/ml EKG tracings as summarized in history of present illness, initial EKG performed on presentation at 1:23 AM revealed severe inferior and lateral ST segment elevation with reciprocal ST segment depression in the anteroseptal leads. Her most recent EKG performed at 2:48 AM on 03/03/[address] segment depression, inferolateral ST segment elevation is improved to some degree, but is still present. CT chest is negative for dissection. Echocardiogram as noted above Assessment & Plan Impression: 36-year-old female 1. Inferior, lateral ST segment elevation myocardial infarction due to coronary artery vasospasm in the setting of hyperthyroidism -Several short runs of nonsustained ventricular tachycardia. -Subjective palpitations noted prior to hospital arrival before the onset of her chest pain yesterday. 2. Residual chest pain noted, likely due to ongoing coronary vasospasm. 3. Hyperthyroidism noted with free T4 of 2.78, free T3 of 7.67, TSH is currently pending 4. Hypomagnesemia Discussion/recommendations: The patient received plain balloon angioplasty to the apical portion of the LAD , severe ostial vasospasm right coronary artery was noted which responded to some degree in the Business Management Associate with administration of intracoronary vasospasm. Patient is much improved clinically, but still has residual ST segment elevation most recent EKG, as elevated troponin, has ongoing 3/10 intensity chest discomfort. Chest thoracic echocardiogram performed this morning reveal independently reveals septal, apical, lateral wall motion abnormality with normal to hyperdynamic function in the remaining segments and low normal LVEF. Hopefully all motion abnormality represents stunned myocardium and will improve with treatment, but it is important for us to treat both the underlying cause, presumably hyperthyroidism and to address the coronary vasospasm. At present I recommend starting oral propranolol which is a beta jarad of choice for cardiac related complaints in the setting of hyperthyroidism. Recommend placing one half inch of nitroglycerin ointment for relief of coronary vasospasm. Will plan on starting IV diltiazem infusion as her blood pressure allows for treatment of tachycardia and relief of coronary vasospasm. She had a very mild headache with initiation of coronary artery nitroglycerin in the Business Management Associate. I debated placing her on a nitroglycerin infusion at present, but I think she will likely develop side effects of severe headache, and therefore was like to proceed with more conservative nitroglycerin in the form of topical nitrates and with the IV diltiazem. If no continued clinical improvement is noted on IV diltiazem, will likely transition her to IV nitroglycerin as the next step. Recommend avoiding additional I do not contrast. Regarding the plain balloon angioplasty that placed the apical LAD, continue aspirin, clopidogrel. I recommend continuing Integrilin for a 12 hour infusion and then transition her over to full dose unfractionated heparin infusion without bolus transition will be due proximally 1423 this afternoon. Case was discussed in depth with critical care team and the patient's nurse. I also called pharmacy to confirm orders. Magnesium replacement as Ardie been ordered by the critical care team. Plan to treat her troponin. A repeat EKG has been requested now and is pending and I plan another one early this afternoon at 1 PM and again tomorrow. Patient is to remain in intensive care unit. Kuldeep Chase DO, FACC, FACOI Associate [employer] Creasing Machine Operator [facility]
[2017-03-03 10:22] LABS: PARTIAL THROMBOPLASTIN RATIO 0.9; PROTHROMBIN TIME (PATIENT) 10.7 SECONDS (9.0-12.0)
[2017-03-03] MEDS: METHIMAZOLE 5 MG TAB PO SCH ×3 (10:26→21:26)
[2017-03-03] MEDS ORDERED: Integrelin infusion --> STOP ORDER ONE ×2 (10:45→14:45)
[2017-03-03 10:54] LABS: BASO % 0.2 %; BASO ABS # 0.02 K/uL (0-0.2); COMPLETE YES; EOS % 0.1 %; IG% 0.2 %; LYMPH % 9.8 %; LYMPH ABS # 1.18 K/uL (1.2-3.4); MONO % 7.1 %; NEUT % 82.6 %
[2017-03-03] MEDS ORDERED: NURSING VERBAL MED ORDER ONE (11:00)
[2017-03-03] MEDS: NITROGLYCERIN OINT 2% 1GM PACKET EXT SCH ×3 (11:39→21:25)
[2017-03-03] MEDS: POTASSIUM IODIDE SOLN 1 GM/ML 30 ML PO SCH ×4 (11:40→23:42)
--- NOTE | 2017-03-03 11:55 | Critical Care Consultation ---
Critical Care Consultation Date of Consultation: Mar 03, 2017. Attending Physician: Donis Calderón M.D. Reason for Consultation: Acute [place] History of Present Illness Patient presented to the ED with complaints of sudden chest pain occurring prior to arrival. Initial EKG revealed severe inferior and lateral ST segment elevation with reciprocal ST segment depression in the anteroseptal leads. Emergent cardiac catheterization revealed severe vasospasm at the distal LAD and ostium of the RCA, for which she underwent plain balloon angioplasty with administration of intracoronary nitroglycerin. She was then transferred to the surgical intensive care unit. Patient has history of Grave's disease and admits to non-compliance recently with her methimazole. At present patient is in bed, chatting with family members. She states she has ongoing chest tightness, but this is significantly improved compared to that experienced at time of discharge. She denies dyspnea, abdominal pain, nausea or vomiting, but does state that she continues to have intermittent palpitations. With regards to discussion regarding management of her Grave's, she states non- compliance only within the last month or so. 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 She is otherwise able to ambulate to the bathroom, without significant exacerbation of symptoms. She is tolerating diet, and voiding and stooling without issue. Family History FH: cancer FH: gallbladder disease FH: heart disease Hypertension Social History Smoking Status: Never Smoker Smokeless Tobacco Use: No Alcohol Use: socially Drug Use: none Marital Status: Housing Status: lives with family Occupation Status: employed Allergies Coded Allergies: No Known Allergies (Verified , 03/03/17) Home Medications Scheduled Methimazole (Methimazole ), 5 MG PO DAILY Current Inpatient Medications Current Inpatient Medications Medications (Trade) Dose Ordered Sig/Charito Route Start Time Stop Time Status Last Admin Dose Admin Ioversol (Optiray 320) 100 ml UD PRN IV 03/03/17 02:45 03/07/17 02:44 Nitroglycerin (Nitrostat Tab) 0.4 mg UD PRN SL 03/03/17 02:45 04/02/17 02:44 03/03/17 04:45 0.4 MG Atropine Sulfate (Atropine Sulfate 0.1MG/Ml Inj) 0.5 mg ONE PRN IV 03/03/17 02:45 04/02/17 02:44 Ondansetron HCl (Zofran Inj) 4 mg Q6H PRN IV 03/03/17 02:45 04/02/17 02:44 Ondansetron HCl 8 mg/Dextrose 54 ml @ 200 mls/hr Q6H PRN IV 03/03/17 02:45 04/02/17 02:44 Aspirin (Ecotrin Tab) 81 mg QAM PO 03/03/17 09:00 04/02/17 08:59 03/03/17 07:45 81 MG Clopidogrel Bisulfate (plAVix TAB) 75 mg QAM PO 03/03/17 09:00 04/02/17 08:59 03/03/17 07:46 75 MG Atorvastatin Calcium (Lipitor Tab) 40 mg QAM PO 03/03/17 09:00 04/02/17 08:59 03/03/17 07:46 40 MG Acetaminophen (Tylenol Tab) 650 mg Q4H PRN PO 03/03/17 02:45 04/02/17 02:44 Morphine Sulfate (MoRPHine SULFATE INJ) 2 mg Q5M PRN IV 03/03/17 02:45 03/04/17 08:00 03/03/17 07:50 2 MG Lorazepam (Ativan Tab) 0.5 mg Q6H PRN PO 03/03/17 02:45 04/02/17 02:44 Eptifibatide 100 ml @ 13 mls/hr Q7H42M IV 03/03/17 03:45 03/03/17 14:45 03/03/17 07:53 13 MLS/HR Potassium Chloride/Sodium Chloride 1,000 ml @ 100 mls/hr Q10H IV 03/03/17 05:00 04/02/17 04:59 03/03/17 05:24 100 MLS/HR Methimazole (Methimazole Tab) 20 mg TID PO 03/03/17 09:00 04/02/17 08:59 03/03/17 10:26 20 MG Nitroglycerin (Nitroglycerin 2% Oint) 0.5 inch Q6H EXT 03/03/17 10:00 04/02/17 09:59 Propranolol HCl (Inderal Tab) 10 mg TID PO 03/03/17 20:00 04/02/17 19:59 Methylprednisolone Sodium Succinate 40 mg/Syringe 0.64 ml @ 1.5 mls/min BID IV 03/03/17 21:00 04/02/17 20:59 Diltiazem HCl 125 mg/Dextrose 125 ml @ 0 mls/hr Q0M PRN IV 03/03/17 09:45 04/02/17 09:44 03/03/17 10:30 5 MLS/HR Potassium Iodide (Sski Soln 50mg/ Drop) 250 mg Q6 PO 03/03/17 10:00 04/02/17 09:59 Miscellaneous (Stop Order) 1 ea TODAY@1445 ONCE N/A 03/03/17 14:45 03/03/17 14:46 Propranolol HCl (Inderal Tab) 10 mg TODAY@1200 ONCE PO 03/03/17 12:00 03/03/17 12:01 Miscellaneous Information (Pending Order) 1 ea TODAY@1445 ONCE N/A 03/03/17 14:45 03/03/17 14:46 Heparin Sodium/ Dextrose 500 ml @ 24 mls/hr [id number] PRN IV 03/03/17 14:45 04/02/17 14:44 Review of Systems See HPI for pertinent positives and negatives. A total of ten systems were reviewed and were otherwise negative. Physical Exam Date Time Temp Pulse Resp B/P (MAP) Pulse Ox O2 Delivery O2 Flow Rate FiO2 03/03/17 10:46 Room Air 03/03/17 08:38 106 124/83 03/03/17 08:32 106 124/83 03/03/17 06:41 106 17 124/83 (102) 99 03/03/17 06:31 97 21 129/80 (91) 99 03/03/17 06:01 93 19 135/87 (107) 99 03/03/17 05:31 96 20 129/81 (88) 99 03/03/17 05:16 99 20 133/88 (93) 100 03/03/17 05:01 100 26 122/86 (89) 100 03/03/17 04:52 84 17 116/80 (90) 99 03/03/17 04:46 73 16 116/90 (93) 100 03/03/17 04:31 79 14 123/85 (96) 99 03/03/17 04:16 70 17 117/84 (99) 100 03/03/17 04:01 86 27 125/83 (91) 100 03/03/17 03:46 76 19 114/79 (87) 99 03/03/17 03:31 74 20 118/69 (92) 100 03/03/17 03:16 84 17 115/72 (84) 98 03/03/17 03:05 85 17 124/76 (94) 97 03/03/17 01:58 36.6 83 18 115/72 99 Room Air 03/03/17 01:28 100 Nasal Cannula 03/03/17 01:28 36.7 114 18 145/85 100 Nasal Cannula 2.0 03/03/17 01:22 108 General Appearance: uncomfortable Head: normocephalic, atraumatic Eyes: PERRLA, no discharge, EOMI, sclerae normal, conjunctivae normal Neck: normal range of motion, no tenderness, trachea midline, no stridor, supple Respiratory: breath sounds normal, clear to auscultation, no respiratory distress Cardiovasular: regular rate/rhythm, normal S1S2, no murmur, normal peripheral pulses Abdomen: non tender, normal bowel sounds, no rebound, no masses, no guarding Back: normal inspection, no midline tenderness, no CVA tenderness, no paravertebral TTP Upper Extremities: no edema, no deformity Lower Extremities: no edema, no deformity Pulses: carotid (R), carotid (L), radial (R), radial (L) Neuro: alert, oriented x 3, normal speech Psychiatric: normal affect Laboratory Results Last 24 Hours Test 03/03/17 00:00 03/03/17 00:48 03/03/17 01:22 03/03/17 01:23 Urine Opiates Screen POS Urine Methadone, Qualitative NEG Urine Barbiturates NEG Urine Phencyclidine (PCP) Level NEG Ur Amphetamine/Methamphetamine NEG MDMA (Ecstasy) Screen NEG Urine Benzodiazepines Screen POS Urine Cocaine Metabolite NEG Urine Marijuana (THC) NEG White Blood Count 8.54 K/uL Red Blood Count 4.85 M/uL Hemoglobin 14.8 g/dL Hematocrit 41.8 % Mean Corpuscular Volume 86.2 fL Mean Corpuscular Hemoglobin 30.5 pg Mean Corpuscular Hemoglobin Concent 35.4 g/dl Platelet Count 333 K/uL Mean Platelet Volume 9.3 fL Neutrophils (%) (Auto) 50.4 % Lymphocytes (%) (Auto) 33.5 % Monocytes (%) (Auto) 13.7 % Eosinophils (%) (Auto) 1.9 % Basophils (%) (Auto) 0.1 % Neutrophils # (Auto) 4.31 K/uL Lymphocytes # (Auto) 2.86 K/uL Monocytes # (Auto) 1.17 K/uL Eosinophils # (Auto) 0.16 K/uL Basophils # (Auto) 0.01 K/uL RDW Standard Deviation 37.6 fL RDW Coefficient of Variation 11.8 % Immature Granulocyte % (Auto) 0.4 % Immature Granulocyte # (Auto) 0.03 K/uL Prothrombin Time 10.2 SECONDS Prothromb Time International Ratio 1.0 Activated Partial Thromboplast Time 24.0 SECONDS Partial Thromboplastin Ratio 0.9 Sodium Level 142 mmol/L Potassium Level 3.3 mmol/L Chloride Level 110 mmol/L Carbon Dioxide Level 21 mmol/L Anion Gap 11.0 mmol/L 18.0 mmol/L Blood Urea Nitrogen 7 mg/dl Creatinine 0.61 mg/dl Est Creatinine Clear Calc Drug Dose 133.0 ml/min Estimated GFR () 136.1 Estimated GFR (Non- 117.5 BUN/Creatinine Ratio 11.2 Random Glucose 113 mg/dl Estimated Average Glucose 105 mg/dl Hemoglobin A1c 5.3 % Calcium Level 8.6 mg/dl Magnesium Level 1.8 mg/dl Total Creatine Kinase 52 U/L Creatine Kinase MB 2.2 ng/ml Creatine Kinase MB Ratio 4.2 Troponin I 0.457 ng/ml Triglycerides Level 189 mg/dl Cholesterol Level 189 mg/dl HDL Cholesterol 43 mg/dl LDL Cholesterol Direct 119 mg/dl LDL Cholesterol, Calculated mg/dl VLDL Cholesterol, Calculated 38 mg/dl Cholesterol/HDL Ratio 4.4 Bedside Hemoglobin 14.3 g/dl Bedside Hematocrit 42 % Bedside Sodium 140 mEq/L Bedside Potassium 3.2 mEq/L Bedside Chloride 107 mEq/L Bedside Total CO2 18 mEq/l Bedside Blood Urea Nitrogen 5 mg/dl Bedside Creatinine 0.5 mg/dl Bedside Glucose (other) 116 mg/dl Bedside Ionized Calcium (Nichol) 1.14 mmol/l Bedside Troponin I 0.300 ng/ml Test 03/03/17 01:52 03/03/17 02:18 03/03/17 05:59 03/03/17 09:05 Kaolin Activated Coagulation Time 186 SECONDS 345 SECONDS White Blood Count 11.81 K/uL Red Blood Count 4.04 M/uL Hemoglobin 12.3 g/dL Hematocrit 35.0 % Mean Corpuscular Volume 86.6 fL Mean Corpuscular Hemoglobin 30.4 pg Mean Corpuscular Hemoglobin Concent 35.1 g/dl Platelet Count 275 K/uL Mean Platelet Volume 8.8 fL Neutrophils (%) (Auto) 82.6 % Lymphocytes (%) (Auto) 9.8 % Monocytes (%) (Auto) 7.1 % Eosinophils (%) (Auto) 0.1 % Basophils (%) (Auto) 0.2 % Neutrophils # (Auto) 9.96 K/uL Lymphocytes # (Auto) 1.18 K/uL Monocytes # (Auto) 0.85 K/uL Eosinophils # (Auto) 0.01 K/uL Basophils # (Auto) 0.02 K/uL RDW Standard Deviation 37.3 fL RDW Coefficient of Variation 11.7 % Immature Granulocyte % (Auto) 0.2 % Immature Granulocyte # (Auto) 0.03 K/uL Nucleated RBC Absolute Count (auto) 0.00 K/uL Nucleated Red Blood Cells % 0.0 % Sodium Level 138 mmol/L Potassium Level 4.1 mmol/L Chloride Level 108 mmol/L Carbon Dioxide Level 23 mmol/L Anion Gap 7.0 mmol/L Blood Urea Nitrogen 5 mg/dl Creatinine 0.52 mg/dl Est Creatinine Clear Calc Drug Dose 156.8 ml/min Estimated GFR () 143.5 Estimated GFR (Non- 123.8 BUN/Creatinine Ratio 8.7 Random Glucose 110 mg/dl Calcium Level 7.9 mg/dl Phosphorus Level 2.1 mg/dl Magnesium Level 1.6 mg/dl Total Bilirubin 0.3 mg/dl Direct Bilirubin < 0.1 mg/dl Aspartate Amino Transf (AST/SGOT) 164 U/L Alanine Aminotransferase (ALT/SGPT) 97 U/L Alkaline Phosphatase 79 U/L Troponin I 26.700 ng/ml Total Protein 6.1 gm/dl Albumin 2.7 gm/dl Thyroid Stimulating Hormone (TSH) < 0.005 uIu/ml Free Thyroxine 2.78 ng/dl Free Triiodothyronine 7.67 pg/ml Human Chorionic Gonadotropin, Quant < 1 mIU/mL Urine Test NEG Test 03/03/17 10:02 Prothrombin Time 10.7 SECONDS Prothromb Time International Ratio 1.0 Activated Partial Thromboplast Time 24.2 SECONDS Partial Thromboplastin Ratio 0.9 Assessment & Plan 36 year old female in ICU due to STEMI in the anteroseptal, apical, inferoseptal and lateral bee associated with uncontrolled Grave's disease Neuro - CAM negative - Stat Ativan in AM for agitation, and available PRN CV - Vitals this morning: noted to be tachycardic 90s-100s, with stable SBP. Some PVCs seen on the monitor - IV metoprolol given as stat dose, with propanol 10mg TID started - Troponin continues to rise, continue serial trop q8h. Cardiology on board. Pulm - Spontaneous breathing, with good saturation on RA Abdo/GI - Normal diet - Evidence of transaminitis. Continue to trend LFTs Renal - Renal function acceptable - Potassium now in normal limits. Continue to monitor. - Phosphate and magnesium low, supplemented. Reassess tomorrow Endo - TSH undetectable with elevated T3/T4. Given recent contrasted CT, concerned for risk of thyroid storm. - IV steroid 125mg stat, with 40mg TID x 24 hours - Methimazole 20mg TID started - Starting 1 hour after first dose of methimazole, patient to receive potassium iodide 250mg q6h x 48 hours Heme - Mild leukocytosis. Continue to trend. - Coag profile negative Access - 2 peripheral lines DVT PPx - Currently on IV Tegralin with plans to start heparin if Integralin discontinued by mergers and acquisitions consultant Resident Physician Supervision Note: Dr. Hicks was resident physician during care of patient. I separately evaluated patient and did history and exam. I discussed the case with the resident and generally agree with the findings and plan. 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 heparin gtt given wall motion abnormalities. discussed with cardiology at bedside. I have personally spent 45 minutes of critical care time in the direct management of this patient. This is a life/limb threatening event. This includes time spent evaluating patient, direct bedside care, chart review, placing orders, interpretation of diagnostic studies, discussion with consultants, patient, and family members, as well as other required patient management activities. This time is exclusive of all separately billable procedures, and teaching time and separate from and in addition to any other critical care service time. Documented By: Selvin Salgado DO Resident Tracking Resident Involvement: Resident Care Provided Care Provided: Adult Hospital Medicine
[2017-03-03] MEDS: HEPARIN 25,000 UNIT/500ML D5W 500 ML IV PRN (14:37)
[2017-03-03] MEDS ORDERED: [UNRECOGNIZED DRUG - REMARK] ONE (14:45)
[2017-03-03] MEDS ORDERED: RAPID SEQUENCE INDUCTION BAG ONE (15:49)
[2017-03-03 18:31] LABS: CKMB/CK RATIO 13.9 (0-3.0)
[2017-03-03] MEDS ORDERED: MAGNESIUM SULFATE 1GM / D5W 1 GM in PREMIXED IN D5W 100 ML IV ONE (19:00)
[2017-03-03] MEDS ORDERED: POT PHOSPHATE MONOBASIC W/ SOD TAB PO ONE (19:15)
[2017-03-03] MEDS ORDERED: PROPRANOLOL HCL 10 MG TAB PO SCH (20:00)
[2017-03-03] MEDS ORDERED: METOPROLOL TARTRATE 25 MG TAB PO SCH (21:00)
[2017-03-03] MEDS: METHYLPREDNISOLONE IV 40 MG in SYRINGE 0 ML IV SCH (21:24)
[2017-03-03 22:39] LABS: CKMB/CK RATIO 13.6 (0-3.0)
[2017-03-04] VITALS (34 sets, daily range): BP systolic 96–156; BP diastolic 51–87; PULSE 71–94; TEMP 36.6–37; O2SAT 94–98
[2017-03-04] MEDS: NITROGLYCERIN OINT 2% 1GM PACKET EXT SCH (04:25)
[2017-03-04] MEDS: MoRPHine SULFATE 2 MG/ML CARP IV PRN (04:25)
[2017-03-04 05:24] LABS: BASO % 0.1 %; BASO ABS # 0.01 K/uL (0-0.2); COMPLETE YES; IG% 0.5 %; LYMPH % 5.7 %; LYMPH ABS # 1.08 K/uL (1.2-3.4); MEAN CELL VOLUME 88.6 fL (80-100); MEAN CORPUSCULAR HEMOGLOBIN 30.5 pg (25-34); MEAN CORPUSCULAR HGB CONC 34.5 g/dl (32-36); NEUT % 89.7 %; PLATELET COUNT 309 K/uL (130-400); RED BLOOD COUNT 4.29 M/uL (4.2-5.4); WHITE BLOOD COUNT 18.82 K/uL (4.8-10.8)
[2017-03-04 05:46] LABS: BUN/CREATININE RATIO 13.1 (10-20); CALCIUM 8.4 mg/dl (8.5-10.1); CREATININE 0.54 mg/dl (0.60-1.20); MAGNESIUM 2.1 mg/dl (1.8-2.4); POTASSIUM 4.1 mmol/L (3.5-5.1)
[2017-03-04 05:58] LABS: CKMB/CK RATIO 15.8 (0-3.0); PHOSPHORUS 3.1 mg/dl (2.5-4.9)
[2017-03-04] MEDS ORDERED: HEPARIN IV BOLUS 5,000 UNIT in SYRINGE 0 ML IV ONE (06:00)
[2017-03-04] MEDS: POTASSIUM IODIDE SOLN 1 GM/ML 30 ML PO SCH ×3 (06:20→18:00)
--- NOTE | 2017-03-04 07:59 | Critical Care Progress Note ---
Critical Care Progress Note Date of Service Mar 04, 2017. ICU Day ICU Day Number: [address] Salgado Subjective Patient feeling well today. Chest discomfort is mostly resolved, except for an occasional heaviness/palpitation, without triggers. Also complaining of a headache, but otherwise denying vision problems. Denies dyspnea, diaphoresis, abdominal pain, nausea or vomiting. Is ambulating without exacerbation/recurrence of chest discomfort. She is tolerating diet. She is voiding, but admits to not having had a BM since just prior to arrival in hospital. She does not however feel constipated, and decline laxatives at this time. Objective GENERAL: sleeping but easy to wake, well appearing, lying in bed, no acute distress, non-toxic HEAD: Normocephalic, atraumatic. No sinus tenderness. EYES: PERRL, EOMI, normal conjunctiva OROPHARYNX: no exudate, no erythema, lips, buccal mucosa, and tongue normal and mucous membranes are moist NECK: supple, no adenopathy, non-tender, mild thyromegaly LUNGS: Clear to auscultation. Normal chest wall mechanics, good air entry. No crepitations, crackles, or wheezes HEART: S1 normal and S2 normal, no murmur CHEST: No reproducible tenderness. ABDOMEN: abdomen soft, non-tender, normo-active bowel sounds, no masses, no rebound or guarding. BACK: Back is symmetrical on inspection, no deformities, no midline tenderness, no CVA tenderness. SKIN: Warm, pink, dry. No erythema, rashes, or bruising. EXTREMITIES: Grossly normal. Moving all 4 limbs, No pitting edema. Calves non tender. Strength 5/5. NEURO: Alert, Ox3. No focal deficits. Cranial nerves II-XII grossly intact, normal speech. PSYCH: Mood and affect appropriate. Current SOFA Score SOFA Score Response (Comments) Value Platelets (x10) > 150 0 Bilirubin (mg/dL) < 1.2 0 Bess Coma Score 15 0 Level of Hypotension No Hypotension 0 Creatinine (mg/dL) < 1.2 0 Total 0 Assessment & Plan 36 year old female in ICU due to cardiovascular manifestations associated with uncontrolled Grave's disease Neuro - CAM negative - Ativan PRN agitation - Tylenol PRN pain CV - Vitals this morning: noted to be tachycardic 90s-100s, with stable SBP - Increased PO propanol from 10 to 20mg TID - Troponin has peaked, and commenced downward trend, continue serial trop q8h. Cardiology on board. - EKGs shows new inverted T waves, although patient clinically feels better - Heparin drip dosed at therapeutic level Pulm - Spontaneous breathing, with good saturation on RA Abdo/GI - Normal diet - Continued evidence of transaminitis - not significantly worse today. Continue to trend LFTs Renal - Renal function acceptable - Potassium, phosphate and magnesium supplemented, and now within normal limits. Reassess tomorrow Endo - Continuing aggressive treatment for thyroid storm for 48 hours - Continue Methimazole 20mg TID - Continue IV methylprednisone 40mg BID - Continue potassium iodide 250mg q6h - Consulted faculty research physician at [facility], Dr. Yumiko Whyte, who advised the following: - Checking TFTs and LFTs tomorrow If TFTs significantly improved, can stop steroid, or else consider tapering If LFTs continue to rise, particularly if >3x upper limit of normal, reconsult Dr. Whyte - both methimazole and especially PTU can contribute to transaminitis, although she notes this patient had elevated LFTs prior to commencing therapy - Continue potassium iodide x 5 days - Methimazole should be dosed at 20mg TID x 3 days, 20mg BID x 3 days, 20mg OD x 3 days, with eventual goal of 10mg OD - TFT and LFTs should be rechecked again after 1 week - Patient needs close outpatient follow up Heme - Leukocytosis, likely secondary to steroid use. Continue to trend. - Coag profile negative Access - 2 peripheral lines DVT PPx - Patient undergoing therapeutic management, instead of prophylactic given cardiac ischemia. - IV Tegralin discontinued and switched to heparin drip - Will plan to transition to warfarin, once director product management advises Resident Physician Supervision Note: Dr. Hicks was resident physician during care of patient. I separately evaluated patient and did history and exam. I discussed the case with the resident and generally agree with the findings and plan. Patient feeling better, pain free. Reviewed Endocrinology recommendations. Will downgrade tomorrow. Documented By: Selvin Salgado DO Consults & Procedures Consultants: Cardiology, Dr. Joshua Chase Procedures: 2 peripheral IV lines Cardiac catheterization 03/03/17 Data Medications: Current Inpatient Medications Medications (Trade) Dose Ordered Sig/Charito Route Start Time Stop Time Status Last Admin Dose Admin Ioversol (Optiray 320) 100 ml UD PRN IV 03/03/17 02:45 03/07/17 02:44 Nitroglycerin (Nitrostat Tab) 0.4 mg UD PRN SL 03/03/17 02:45 04/02/17 02:44 03/03/17 04:45 0.4 MG Atropine Sulfate (Atropine Sulfate 0.1MG/Ml Inj) 0.5 mg ONE PRN IV 03/03/17 02:45 04/02/17 02:44 Ondansetron HCl (Zofran Inj) 4 mg Q6H PRN IV 03/03/17 02:45 04/02/17 02:44 Ondansetron HCl 8 mg/Dextrose 54 ml @ 200 mls/hr Q6H PRN IV 03/03/17 02:45 04/02/17 02:44 Aspirin (Ecotrin Tab) 81 mg QAM PO 03/03/17 09:00 04/02/17 08:59 03/03/17 07:45 81 MG Clopidogrel Bisulfate (plAVix TAB) 75 mg QAM PO 03/03/17 09:00 04/02/17 08:59 03/03/17 07:46 75 MG Atorvastatin Calcium (Lipitor Tab) 40 mg QAM PO 03/03/17 09:00 04/02/17 08:59 03/03/17 07:46 40 MG Acetaminophen (Tylenol Tab) 650 mg Q4H PRN PO 03/03/17 02:45 04/02/17 02:44 Morphine Sulfate (MoRPHine SULFATE INJ) 2 mg Q5M PRN IV 03/03/17 02:45 03/04/17 08:00 03/04/17 04:25 2 MG Lorazepam (Ativan Tab) 0.5 mg Q6H PRN PO 03/03/17 02:45 04/02/17 02:44 Methimazole (Methimazole Tab) 20 mg TID PO 03/03/17 09:00 04/02/17 08:59 03/03/17 21:26 20 MG Nitroglycerin (Nitroglycerin 2% Oint) 0.5 inch Q6H EXT 03/03/17 10:00 04/02/17 09:59 03/04/17 04:25 0.5 INCH Propranolol HCl (Inderal Tab) 10 mg TID PO 03/03/17 20:00 04/02/17 19:59 03/03/17 19:59 10 MG Methylprednisolone Sodium Succinate 40 mg/Syringe 0.64 ml @ 1.5 mls/min BID IV 03/03/17 21:00 04/02/17 20:59 03/03/17 21:24 1.5 MLS/MIN Diltiazem HCl 125 mg/Dextrose 125 ml @ 0 mls/hr Q0M PRN IV 03/03/17 09:45 04/02/17 09:44 03/03/17 10:30 5 MLS/HR Potassium Iodide (Sski Soln 50mg/ Drop) 250 mg Q6 PO 03/03/17 10:00 04/02/17 09:59 03/04/17 06:20 250 MG Heparin Sodium/ Dextrose 500 ml @ 29 mls/hr [id number] PRN IV 03/03/17 14:45 04/02/17 14:44 03/03/17 14:37 24 MLS/HR Vital Signs: Date Time Temp Pulse Resp B/P (MAP) Pulse Ox O2 Delivery O2 Flow Rate FiO2 03/04/17 06:16 82 16 102/51 (68) 03/04/17 06:01 84 14 96/60 (72) 96 03/04/17 05:46 82 16 98/57 (71) 03/04/17 05:31 79 15 103/55 (71) 03/04/17 05:16 77 15 117/60 (79) 03/04/17 05:01 71 18 117/70 (86) 03/04/17 04:31 36.6 79 19 106/57 (73) 97 03/04/17 04:00 97 Room Air 03/04/17 03:46 85 22 128/57 (80) 97 03/04/17 03:31 91 21 105/72 (83) 96 03/04/17 03:01 80 20 119/73 (88) 97 03/04/17 02:46 83 18 120/71 (87) 97 03/04/17 02:32 90 19 118/68 (85) 95 03/04/17 02:16 87 17 119/65 (83) 94 03/04/17 02:01 87 21 125/68 (87) 94 03/04/17 01:47 94 25 121/63 (82) 96 03/04/17 01:31 83 18 156/77 (103) 96 03/04/17 01:16 84 17 153/79 (103) 96 03/04/17 01:01 88 23 156/78 (104) 96 03/04/17 00:46 84 17 138/86 (103) 98 03/04/17 00:31 87 17 139/87 (104) 96 03/04/17 00:16 77 17 132/78 (96) 97 03/04/17 00:01 36.6 94 19 121/77 (92) 97 03/03/17 23:59 96 Room Air 03/03/17 23:31 85 17 115/75 (88) 97 Room Air 03/03/17 23:16 94 23 103/74 (84) 98 03/03/17 23:01 94 16 127/65 (85) 97 03/03/17 22:16 87 17 114/58 (76) 96 03/03/17 22:01 89 19 113/65 (81) 97 Room Air 03/03/17 21:46 92 20 121/69 (86) 97 03/03/17 21:16 88 19 102/55 (71) 96 03/03/17 21:01 90 26 102/64 (77) 97 03/03/17 20:46 97 14 120/66 (84) 98 03/03/17 20:31 96 16 111/63 (79) 98 03/03/17 20:16 36.6 94 30 104/74 (84) 99 Room Air 03/03/17 20:00 99 Room Air 03/03/17 16:00 104 18 100 Room Air 03/03/17 16:00 99 Room Air 03/03/17 15:00 108 22 99 03/03/17 14:00 106 25 116/80 (92) 99 Room Air 03/03/17 14:00 36.6 88 23 138/89 (94) 99 03/03/17 13:00 36.6 91 22 138/89 (94) 98 03/03/17 13:00 88 23 99 03/03/17 12:46 91 22 138/89 (94) 98 03/03/17 12:31 91 20 124/79 (85) 100 8/14/17 12:16 91 21 148/90 (124) 100 03/03/17 12:01 86 20 128/91 (100) 100 03/03/17 12:00 84 20 147/94 (111) 95 Room Air 03/03/17 12:00 85 21 99 03/03/17 12:00 99 Room Air 03/03/17 11:46 100 21 120/95 (112) 100 03/03/17 11:31 86 13 126/78 (80) 100 03/03/17 11:01 105 19 123/76 (93) 100 03/03/17 11:00 106 20 99 03/03/17 10:46 Room Air 03/03/17 10:46 95 20 127/73 (98) 98 03/03/17 10:01 91 16 141/84 (93) 100 03/03/17 10:00 78 21 100 03/03/17 09:15 70 19 127/82 (97) 100 03/03/17 09:00 82 21 98 03/03/17 08:38 106 124/83 03/03/17 08:32 106 124/83 03/03/17 08:01 95 20 115/97 (107) 100 03/03/17 08:00 Room Air 03/03/17 08:00 36.6 106 17 124/83 (102) 100 03/03/17 08:00 36.6 98 20 115/97 (103) 100 Room Air 03/03/17 08:00 93 20 100 Laboratory Results: Last 24 Hours Test 03/03/17 09:05 03/03/17 10:02 03/03/17 14:13 03/03/17 21:55 Urine Test NEG Prothrombin Time 10.7 SECONDS Prothromb Time International Ratio 1.0 Activated Partial Thromboplast Time 24.2 SECONDS Partial Thromboplastin Ratio 0.9 Total Creatine Kinase 2339 U/L 1528 U/L Creatine Kinase MB 326.2 ng/ml 208.2 ng/ml Creatine Kinase MB Ratio 13.9 Troponin I 75.800 ng/ml 45.300 ng/ml Test 03/04/17 05:13 White Blood Count 18.82 K/uL Red Blood Count 4.29 M/uL Hemoglobin 13.1 g/dL Hematocrit 38.0 % Mean Corpuscular Volume 88.6 fL Mean Corpuscular Hemoglobin 30.5 pg Mean Corpuscular Hemoglobin Concent 34.5 g/dl Platelet Count 309 K/uL Mean Platelet Volume 9.0 fL Neutrophils (%) (Auto) 89.7 % Lymphocytes (%) (Auto) 5.7 % Monocytes (%) (Auto) 4.0 % Eosinophils (%) (Auto) 0.0 % Basophils (%) (Auto) 0.1 % Neutrophils # (Auto) 16.88 K/uL Lymphocytes # (Auto) 1.08 K/uL Monocytes # (Auto) 0.76 K/uL Eosinophils # (Auto) 0.00 K/uL Basophils # (Auto) 0.01 K/uL RDW Standard Deviation 39.0 fL RDW Coefficient of Variation 12.1 % Immature Granulocyte % (Auto) 0.5 % Immature Granulocyte # (Auto) 0.09 K/uL Activated Partial Thromboplast Time 25.9 SECONDS Partial Thromboplastin Ratio 1.0 Sodium Level 138 mmol/L Potassium Level 4.1 mmol/L Chloride Level 108 mmol/L Carbon Dioxide Level 21 mmol/L Anion Gap 9.0 mmol/L Blood Urea Nitrogen 7 mg/dl Creatinine 0.54 mg/dl Est Creatinine Clear Calc Drug Dose 151.0 ml/min Estimated GFR () 141.7 Estimated GFR (Non- 122.3 BUN/Creatinine Ratio 13.1 Random Glucose 160 mg/dl Calcium Level 8.4 mg/dl Phosphorus Level 3.1 mg/dl Magnesium Level 2.1 mg/dl Total Creatine Kinase 873 U/L Creatine Kinase MB 137.9 ng/ml Creatine Kinase MB Ratio 15.8 Troponin I 26.400 ng/ml Resident Tracking Resident Involvement: Resident Care Provided Care Provided: Adult Hospital Medicine
[2017-03-04] MEDS: ATORVASTATIN 40 MG TAB PO SCH (08:06)
[2017-03-04] MEDS: METHYLPREDNISOLONE IV 40 MG in SYRINGE 0 ML IV SCH ×2 (08:06→21:31)
[2017-03-04] MEDS: ASPIRIN 81 MG ECTAB PO SCH (08:06)
[2017-03-04] MEDS: METHIMAZOLE 5 MG TAB PO SCH ×3 (08:07→21:10)
[2017-03-04] MEDS: CLOPIDOGREL BISULFATE 75 MG TAB PO SCH (08:07)
--- NOTE | 2017-03-04 08:36 | Progress Note ---
Internal Med Progress Note Date of Service: Mar 04, 2017. Provider Documentation: SUBJECTIVE: States doing well this morning Reports chest pain resolved Has headache Denies SOB, palpitations. OBJECTIVE: Vital Signs-as noted below Physical Exam: Vitals signs as noted above General Appearance:Moderately built and nourished, no apparent distress Head: normocephalic, Atraumatic Eyes: normal inspection, EOMI, PERRL Neck: supple, Trachea midline Respiratory/Chest: Normal breath sounds, CTA Cardiovascular: S1, S2, No murmur Abdomen/GI:Soft, Non tender, Bowel sounds present Extremities/Musculoskelatal:normal inspection, no edema Neurologic/Psych:grossly no focal neurological deficits Skin: normal color, warm Lab data as noted below. ASSESSMENT & PLAN: Patient is 36 yr female currently being teated for Inferior,lateral STEMI due to coronary artery vasospasm in setting of uncontrolled Grave's disease STEMI: due to coronary artery vasospasm In setting of uncontrolled hyperthyroidism Several runs of NSVT S/P balloon angioplasty to the apical portion of the LAD, severe ostial vasospasm RCA Continue aspirin, clopidogrel, statin On NTG, IV diltiazem, IV heparin Uncontrolled Hyperthyroidism: ? Thyroid Criselda H/O Graves' disease Admits to being Non compliant to medications lately TSH: 0.005, T4:2.78, T3:7.67 On Methimazole, Iodine, Solumedrol, Propranolol Follows with Endocrinology as outpatient Leukocytosis: Secondary to steroids Afebrile Hypomagnesemia: Replace and Monitor Hyperlipidemia Continue Lipitor DVT px: On IV heparin Code status: full code Disposition: Monitor in ICU PROCEDURES: ECHO: * There is normal left ventricular wall thickness. * There is a moderate sized apical and lateral wall motion abnormality with hypokinesis of the segments. * Normal contractility to hyperdynamic contractility is noted in the remaining segments. * Left ventricular systolic function is low normal. * The LV Ejection Fraction = 50-55%. * There is mild tricuspid regurgitation. * The pulmonary artery systolic pressure is normal to borderline elevated , wt PA systolic pressure of 40 mm Hg. Vital Signs: Date Time Temp Pulse Resp B/P (MAP) Pulse Ox O2 Delivery O2 Flow Rate FiO2 03/04/17 08:00 97 Room Air 03/04/17 08:00 37.0 94 20 112/71 (85) 97 Room Air 03/04/17 06:16 82 16 102/51 (68) 03/04/17 06:01 84 14 96/60 (72) 96 03/04/17 05:46 82 16 98/57 (71) 03/04/17 05:31 79 15 103/55 (71) 03/04/17 05:16 77 15 117/60 (79) 03/04/17 05:01 71 18 117/70 (86) 03/04/17 04:31 36.6 79 19 106/57 (73) 97 03/04/17 04:00 97 Room Air 03/04/17 03:46 85 22 128/57 (80) 97 03/04/17 03:31 91 21 105/72 (83) 96 03/04/17 03:01 80 20 119/73 (88) 97 03/04/17 02:46 83 18 120/71 (87) 97 03/04/17 02:32 90 19 118/68 (85) 95 03/04/17 02:16 87 17 119/65 (83) 94 03/04/17 02:01 87 21 125/68 (87) 94 03/04/17 01:47 94 25 121/63 (82) 96 03/04/17 01:31 83 18 156/77 (103) 96 03/04/17 01:16 84 17 153/79 (103) 96 03/04/17 01:01 88 23 156/78 (104) 96 03/04/17 00:46 84 17 138/86 (103) 98 03/04/17 00:31 87 17 139/87 (104) 96 03/04/17 00:16 77 17 132/78 (96) 97 03/04/17 00:01 36.6 94 19 121/77 (92) 97 03/03/17 23:59 96 Room Air 03/03/17 23:31 85 17 115/75 (88) 97 Room Air 03/03/17 23:16 94 23 103/74 (84) 98 03/03/17 23:01 94 16 127/65 (85) 97 03/03/17 22:16 87 17 114/58 (76) 96 03/03/17 22:01 89 19 113/65 (81) 97 Room Air 03/03/17 21:46 92 20 121/69 (86) 97 03/03/17 21:16 88 19 102/55 (71) 96 03/03/17 21:01 90 26 102/64 (77) 97 03/03/17 20:46 97 14 120/66 (84) 98 03/03/17 20:31 96 16 111/63 (79) 98 03/03/17 20:16 36.6 94 30 104/74 (84) 99 Room Air 03/03/17 20:00 99 Room Air 03/03/17 16:00 104 18 100 Room Air 03/03/17 16:00 99 Room Air 03/03/17 15:00 108 22 99 03/03/17 14:00 106 25 116/80 (92) 99 Room Air 03/03/17 14:00 36.6 88 23 138/89 (94) 99 03/03/17 13:00 36.6 91 22 138/89 (94) 98 03/03/17 13:00 88 23 99 03/03/17 12:46 91 22 138/89 (94) 98 03/03/17 12:31 91 20 124/79 (85) 100 03/03/17 12:16 91 21 148/90 (124) 100 03/03/17 12:01 86 20 128/91 (100) 100 03/03/17 12:00 84 20 147/94 (111) 95 Room Air 03/03/17 12:00 85 21 99 03/03/17 12:00 99 Room Air 03/03/17 11:46 100 21 120/95 (112) 100 03/03/17 11:31 86 13 126/78 (80) 100 03/03/17 11:01 105 19 123/76 (93) 100 03/03/17 11:00 106 20 99 03/03/17 10:46 Room Air 03/03/17 10:46 95 20 127/73 (98) 98 03/03/17 10:01 91 16 141/84 (93) 100 03/03/17 10:00 78 21 100 03/03/17 09:15 70 19 127/82 (97) 100 Lab Results: Results Past 24 Hours Test 03/03/17 09:05 03/03/17 10:02 03/03/17 14:13 03/03/17 21:55 Range/Units Urine Test NEG NEG Prothrombin Time 10.7 9.0-12.0 SECONDS Prothromb Time International Ratio 1.0 0.9-1.1 Activated Partial Thromboplast Time 24.2 21.0-31.0 SECONDS Partial Thromboplastin Ratio 0.9 Total Creatine Kinase 2339 1528 26-192 U/L Creatine Kinase MB 326.2 208.2 0.5-3.6 ng/ml Creatine Kinase MB Ratio 13.9 0-3.0 Troponin I 75.800 45.300 0-0.045 ng/ml Test 03/04/17 05:13 Range/Units White Blood Count 18.82 4.8-10.8 K/uL Red Blood Count 4.29 4.2-5.4 M/uL Hemoglobin 13.1 12.0-16.0 g/dL Hematocrit 38.0 37-47 % Mean Corpuscular Volume 88.6 80-100 fL Mean Corpuscular Hemoglobin 30.5 25-34 pg Mean Corpuscular Hemoglobin Concent 34.5 32-36 g/dl Platelet Count 309 130-400 K/uL Mean Platelet Volume 9.0 7.4-10.4 fL Neutrophils (%) (Auto) 89.7 % Lymphocytes (%) (Auto) 5.7 % Monocytes (%) (Auto) 4.0 % Eosinophils (%) (Auto) 0.0 % Basophils (%) (Auto) 0.1 % Neutrophils # (Auto) 16.88 1.4-6.5 K/uL Lymphocytes # (Auto) 1.08 1.2-3.4 K/uL Monocytes # (Auto) 0.76 0.11-0.59 K/uL Eosinophils # (Auto) 0.00 0-0.5 K/uL Basophils # (Auto) 0.01 0-0.2 K/uL RDW Standard Deviation 39.0 36.4-46.3 fL RDW Coefficient of Variation 12.1 11.5-14.5 % Immature Granulocyte % (Auto) 0.5 % Immature Granulocyte # (Auto) 0.09 0.00-0.02 K/uL Activated Partial Thromboplast Time 25.9 21.0-31.0 SECONDS Partial Thromboplastin Ratio 1.0 Sodium Level 138 136-145 mmol/L Potassium Level 4.1 3.5-5.1 mmol/L Chloride Level 108 98-107 mmol/L Carbon Dioxide Level 21 21-32 mmol/L Anion Gap 9.0 3-11 mmol/L Blood Urea Nitrogen 7 7-18 mg/dl Creatinine 0.54 0.60-1.20 mg/dl Est Creatinine Clear Calc Drug Dose 151.0 ml/min Estimated GFR () 141.7 Estimated GFR (Non- 122.3 BUN/Creatinine Ratio 13.1 10-20 Random Glucose 160 70-99 mg/dl Calcium Level 8.4 8.5-10.1 mg/dl Phosphorus Level 3.1 2.5-4.9 mg/dl Magnesium Level 2.1 1.8-2.4 mg/dl Total Creatine Kinase 873 26-192 U/L Creatine Kinase MB 137.9 0.5-3.6 ng/ml Creatine Kinase MB Ratio 15.8 0-3.0 Troponin I 26.400 0-0.045 ng/ml
[2017-03-04] MEDS: PROPRANOLOL HCL 10 MG TAB PO SCH ×3 (08:51→21:10)
[2017-03-04] MEDS: DILTIAZEM HCL 30 MG TAB PO SCH ×3 (09:15→21:09)
--- NOTE | 2017-03-04 09:19 | Cardiology Follow-Up ---
Subjective General Date of Service: Mar 04, 2017. Chief Complaint: follow up chest pain, palpitations, [place] Pt evaluation today including: conversation w/ patient, physical exam History of Present Illness The patient is a 36 year old female seen in follow up. Patient states chest discomfort has completely resolved, 0/10 this am. Still senses sensation of elevated heart rate. Only other complaint is headache, for which she has received morphine and Tylenol overnight. Allergies Coded Allergies: No Known Allergies (Verified , 03/03/17) Social History Smoking Status: Never Smoker Hx Tobacco Use In Past Year?: No Hx Alcohol Use - Type And Amou: Yes (socially) Hx Substance Use - Type And Am: No Problem List Medical Problems: (1) Forearm contusion Status: Acute (2) STEMI (ST elevation myocardial infarction) Status: Acute Physical Exam Vital Signs Last Vital Signs Documentation Date Time Temp Pulse Resp B/P (MAP) Pulse Ox O2 Delivery O2 Flow Rate FiO2 03/04/17 08:00 97 Room Air 03/04/17 08:00 37.0 94 20 112/71 (85) 03/03/17 01:28 2.0 Physical Exam Constitutional: General Apperance: heathly-appearing Level of Distress: NAD Psychiatric: Mental Status: active & alert Orientation: to time, to place, to person Head: normocephalic, atraumatic Neck: supple, trachea midline Lungs: Auscultation: no wheezing, no rales/crackles, no rhonchi Cardiovascular: Heart Auscultation: RRR, no murmurs, no rubs, no gallops Abdomen: Inspection & Palpation: soft, non-distended, no tenderness, guarding & rebound Extremities: no edema Neurologic: Gait & Station: pertinent finding (no focal neuro deficits ) Assessment and Plan Assessment and Plan Last Resulted 03/04/17 05:13 Red Blood Count 4.29, Mean Corpuscular Volume 88.6, Mean Corpuscular Hemoglobin 30.5, Mean Corpuscular Hemoglobin Concent 34.5, Mean Platelet Volume 9.0, Neutrophils (%) (Auto) 89.7, Lymphocytes (%) (Auto) 5.7, Monocytes (%) (Auto) 4.0, Eosinophils (%) (Auto) 0.0, Basophils (%) (Auto) 0.1, Neutrophils # (Auto) 16.88, Lymphocytes # (Auto) 1.08, Monocytes # (Auto) 0.76, Eosinophils # (Auto) 0.00, Basophils # (Auto) 0.01 Last Resulted 03/04/17 05:13 Past 24 Hours Test 03/03/17 10:02 03/03/17 14:13 03/03/17 21:55 03/04/17 05:13 Range/Units Prothromb Time International Ratio 1.0 0.9-1.1 Prothrombin Time 10.7 9.0-12.0 SECONDS Creatine Kinase MB 326.2 H 208.2 H 137.9 H 0.5-3.6 ng/ml Creatine Kinase MB Ratio 13.9 H 15.8 H 0-3.0 Total Creatine Kinase 2339 H 1528 H 873 H 26-192 U/L Troponin I 75.800 *H 45.300 *H 26.400 *H 0-0.045 ng/ml Serial EKG s performed yesterday and EKG performed today. Yesterday, tracing documented resolution of the presenting inferior and lateral ST elevation. EKG this am 03/04/17, with diffuse T wave inversions, ST elevation inferiorly Telemetry : SR and mild sinus tachycardia. Short salvos of non sustained VT noted 03/03/17, have resolved. Impression: 36-year-old female Inferior, lateral ST segment elevation myocardial infarction due to coronary artery vasospasm in the setting of thyrotoxicosis -Several short runs of nonsustained ventricular tachycardia 03/03/17, resolved -Subjective palpitations noted prior to hospital arrival before the onset of her chest pain yesterday. -Echo 03/03/17 revealed apical septal, apical, lateral wall motion abnormality , with normal to hyperdynamic function in remaining segments, with low normal LVEF -Significant CPK, troponin elevation, trending down -elevated AST, ALT, likely due to [place] Recommendations: Vasospastic angina, is a known manifestation of thyrotoxicosis, or can occur otherwise. Other possibility is microembolic, however, preceding palpitation and findings of sinus tachycardia despite beta jarad and IV diltiazem, and NSVT, are consistent with thyroid storm as being inciting cause. Pt have POBA to distal LAD. Continue ASA, plavix. Continue heparin for now. looking away , will consider transition off of heparin and on to coumadin ( stopping plavix for coumadin) depending on how she progresses, and how significant the likelihood of coronary embolic is compared to pure vasospasm etiology. No statin therapy for now. No coronary atherosclerosis, also has mild LFT elevation. Meds: DC topical nitro due to head ache. Continue diltiazem gtt at 7.5 mg/hour, add PO 30 mg TID. Increase propranolol to 20 mg TID. -this is the beta jarad of choice in setting of thyrotoxicosis. Continue ASA and Plavix. Recheck echo 03/05/17, if LVEF < 50% will consider adding ACEI or ARB.
[2017-03-04 11:24] LABS: PARTIAL THROMBOPLASTIN RATIO 2.1
[2017-03-04 11:28] LABS: BUN/CREATININE RATIO 15.3 (10-20); CALCIUM 8.7 mg/dl (8.5-10.1); CREATININE 0.59 mg/dl (0.60-1.20)
[2017-03-04 11:30] LABS: ALB/GLOB RATIO 0.7 (0.9-2)
--- NOTE | 2017-03-04 16:37 | ECHOCARDIOGRAM REPORT ---
*NOTICE TO RECEIVING DEMOCRAT AGENCY This information is strictly Confidential and protected under [place] law. [place] law prohibits you from making any further disclosure of this information unless further disclosure is expressly permitted by the written consent of the person to whom it pertains or is authorized by law. A general authorization for the release of medical or other information is not sufficient for this purpose. Hospital accepts no responsibility if the information is made available to any other person, INCLUDING THE PATIENT. Interpretation Summary * Name: AURE DUNAWAY Study Date: 03/04/2017 10:24 AM BP: 128/63 mmHg * Patient Location: .MSICU\S\E111\S\1 HR: 83 * : 1980 (M/d/yyyy) Gender: Female Height: 64 in * Age: 36 yrs Ethnicity: CA Weight: 181 lb * Ordering Physician: Donis Calderón * Referring Physician: Self, Referred * Performed By: Penny De La Vega RCS * * Reason For Study: FOLLOW UP [place] * BSA: 1.9 m2 * -- Conclusions -- * A focused study was performed to reassess left ventricular wall motion. * Ultrasound contrast was administered to improve delineation of the endocardial border with excellent technical results. * Compared to the prior study dated 03/03/17, the current images are a little foreshortened, which limits the assessment of the apical inferoseptal segment to some degree, however the previously noted wall motion abnormalities have resolved, with noted hyperdyanamic left ventricular and right ventricular systolic function. Procedure Details * A complete two-dimensional transthoracic echocardiogram was performed (2D, M-mode, Doppler and color flow Doppler). * A contrast injection of Definity was performed to improve assessment of LV function. * Contrast was injected into an intravenous site in the left arm. * One vial of Definity ultrasound contrast was diluted in normal saline to a total volume of 10 ml. A total of '2' ml of solution was administered during imaging. * Lot # [id number] of Definity utilized for procedure. * Expiration date MAR 07. * The attending nurse who injected the contrast agent was TYRONE PERERA, RN. Left Ventricle * The left ventricle is normal in size. * There is normal left ventricular wall thickness. * The left ventricle is hyperdynamic. * Ejection Fraction = >70 %. Right Ventricle * The right ventricle is normal size. * The right ventricle is hyperdynamic. Atria * The left atrial size is normal. * Right atrial size is normal. Great Vessels * Normal inferior vena cava size and collapsability with sniff indicates a normal right atrial pressure of 3 mmHg MMode 2D Measurements and Calculations IVSd 1.1 cm IVSs 1.7 cm LVIDd 4.1 cm LVIDs 2.7 cm LVPWd 1.2 cm LVPWs 1.2 cm IVS/LVPW 0.92 FS 35.2 % EDV(Teich) 74.9 ml ESV(Teich) 26.2 ml EF(Teich) 65.1 % EDV(cubed) 69.8 ml ESV(cubed) 19.0 ml EF(cubed) 72.8 % % IVS thick 50.9 % % LVPW thick 1.6 % LV mass(C)d 166.8 grams LV mass(C)dI 89.0 grams/m\S\2 LV mass(C)s 131.1 grams LV mass(C)sI 69.9 grams/m\S\2 SV(Teich) 48.7 ml SI(Teich) 26.0 ml/m\S\2 SV(cubed) 50.8 ml SI(cubed) 27.1 ml/m\S\2 LVOT diam 2.0 cm LVOT area 3.0 cm\S\2 LVAd ap4 32.9 cm\S\2 LVLd ap4 7.9 cm EDV(MOD-sp4) 109.5 ml EDV(sp4-el) 115.6 ml LVAs ap4 17.8 cm\S\2 LVLs ap4 6.8 cm ESV(MOD-sp4) 41.0 ml ESV(sp4-el) 39.5 ml EF(MOD-sp4) 62.6 % EF(sp4-el) 65.8 % LVAd ap2 32.1 cm\S\2 LVLd ap2 7.8 cm EDV(MOD-sp2) 109.0 ml EDV(sp2-el) 111.7 ml LVAs ap2 18.8 cm\S\2 LVLs ap2 6.8 cm ESV(MOD-sp2) 41.8 ml ESV(sp2-el) 44.1 ml EF(MOD-sp2) 61.6 % EF(sp2-el) 60.5 % LVLd %diff -1.27 % EDV(MOD-bp) 109.2 ml LVLs %diff 0 % ESV(MOD-bp) 41.3 ml EF(MOD-bp) 62.2 % SV(MOD-sp4) 68.5 ml SI(MOD-sp4) 36.5 ml/m\S\2 SV(MOD-sp2) 67.2 ml SI(MOD-sp2) 35.8 ml/m\S\2 SV(MOD-bp) 67.9 ml SI(MOD-bp) 36.2 ml/m\S\2 SV(sp4-el) 76.1 ml SI(sp4-el) 40.6 ml/m\S\2 SV(sp2-el) 67.6 ml SI(sp2-el) 36.1 ml/m\S\2
[2017-03-05] VITALS (17 sets, daily range): BP systolic 94–132; BP diastolic 52–70; PULSE 73–100; TEMP 36.7–36.9; O2SAT 94–100
[2017-03-05] MEDS: POTASSIUM IODIDE SOLN 1 GM/ML 30 ML PO SCH ×4 (00:35→18:28)
[2017-03-05 05:30] LABS: COMPLETE YES; HEMATOCRIT 38.5 % (37-47); IG% 0.4 %; LYMPH % 6.9 %; LYMPH ABS # 1.44 K/uL (1.2-3.4); MEAN CELL VOLUME 88.3 fL (80-100); MEAN CORPUSCULAR HEMOGLOBIN 29.4 pg (25-34); MEAN CORPUSCULAR HGB CONC 33.2 g/dl (32-36); MEAN PLATELET VOLUME 9.1 fL (7.4-10.4); NEUT % 88.7 %; PLATELET COUNT 348 K/uL (130-400); RED BLOOD COUNT 4.36 M/uL (4.2-5.4); WHITE BLOOD COUNT 20.96 K/uL (4.8-10.8)
[2017-03-05 05:38] LABS: PARTIAL THROMBOPLASTIN RATIO 1.5
[2017-03-05 06:00] LABS: ALT/SGPT 104 U/L (12-78); AST/SGOT 63 U/L (15-37); BLOOD UREA NITROGEN 12 mg/dl (7-18); BUN/CREATININE RATIO 22.7 (10-20); CALCIUM 8.9 mg/dl (8.5-10.1); CARBON DIOXIDE 23 mmol/L (21-32); CHLORIDE 108 mmol/L (98-107); CREATININE 0.51 mg/dl (0.60-1.20); GLUCOSE 130 mg/dl (70-99); MAGNESIUM 2.2 mg/dl (1.8-2.4); POTASSIUM 4.1 mmol/L (3.5-5.1); SODIUM 139 mmol/L (136-145)
[2017-03-05] MEDS: HEPARIN 25,000 UNIT/500ML D5W 500 ML IV PRN (06:06)
[2017-03-05 06:15] LABS: ALB/GLOB RATIO 0.7 (0.9-2); ALKALINE PHOSPHATASE 86 U/L (45-117); PHOSPHORUS 3.5 mg/dl (2.5-4.9); THYROID STIMULATING HORMONE < 0.005 uIu/ml (0.300-4.500)
[2017-03-05] MEDS ORDERED: HEPARIN IV BOLUS 5,000 UNIT in SYRINGE 0 ML IV ONE (06:30)
[2017-03-05] MEDS: METHYLPREDNISOLONE IV 40 MG in SYRINGE 0 ML IV SCH ×2 (08:34→21:31)
[2017-03-05] MEDS: DILTIAZEM HCL 30 MG TAB PO SCH ×3 (08:35→21:03)
[2017-03-05] MEDS: ASPIRIN 81 MG ECTAB PO SCH (08:35)
[2017-03-05] MEDS: ATORVASTATIN 40 MG TAB PO SCH (08:36)
[2017-03-05] MEDS: METHIMAZOLE 5 MG TAB PO SCH ×3 (08:36→21:05)
[2017-03-05] MEDS: CLOPIDOGREL BISULFATE 75 MG TAB PO SCH (08:36)
[2017-03-05] MEDS: PROPRANOLOL HCL 10 MG TAB PO SCH ×3 (08:36→21:04)
--- NOTE | 2017-03-05 09:26 | Cardiology Follow-Up ---
Subjective General Date of Service: Mar 05, 2017. Chief Complaint: follow up chest pain, palpitations, [place] Pt evaluation today including: conversation w/ patient, physical exam History of Present Illness The patient is a 37 year old female seen in follow up. Denies chest pain. Danese brief sensation of heart racing this am, however, telemetry reveals SR and no additional arrhythmia, no additional non sustained ventricular tachycardia since am of 03/03/17. EKG reveals diffuse T wave inversions, inferior ST elevation-consistent with evolved [place] pattern. Repeat Echo 03/04/17=resolution of prior wall motion abnormalities, LVEF > 70%, apical inferoseptal segment suboptimally visualized, but otherwise normal. Troponin has trended down. Allergies Coded Allergies: No Known Allergies (Verified , 03/03/17) Social History Smoking Status: Never Smoker Hx Tobacco Use In Past Year?: No Hx Alcohol Use - Type And Amou: Yes (socially) Hx Substance Use - Type And Am: No Problem List Medical Problems: (1) Forearm contusion Status: Acute (2) STEMI (ST elevation myocardial infarction) Status: Acute Physical Exam Vital Signs Last Vital Signs Documentation Date Time Temp Pulse Resp B/P (MAP) Pulse Ox O2 Delivery O2 Flow Rate FiO2 03/05/17 06:00 94 Room Air 03/05/17 06:00 84 18 111/59 (76) 03/05/17 04:30 36.7 03/03/17 01:28 2.0 Physical Exam Constitutional: General Apperance: heathly-appearing Level of Distress: NAD Psychiatric: Mental Status: active & alert Orientation: to time, to place, to person Head: normocephalic, atraumatic Neck: supple, trachea midline Lungs: Auscultation: no wheezing, no rales/crackles, no rhonchi Cardiovascular: Heart Auscultation: RRR, no murmurs, no rubs, no gallops Abdomen: Inspection & Palpation: soft, non-distended, no tenderness, guarding & rebound Extremities: no edema Neurologic: Gait & Station: pertinent finding (no focal neuro deficits ) Assessment and Plan Assessment and Plan Last Resulted 03/05/17 05:22 Red Blood Count 4.36, Mean Corpuscular Volume 88.3, Mean Corpuscular Hemoglobin 29.4, Mean Corpuscular Hemoglobin Concent 33.2, Mean Platelet Volume 9.1, Neutrophils (%) (Auto) 88.7, Lymphocytes (%) (Auto) 6.9, Monocytes (%) (Auto) 4.0, Eosinophils (%) (Auto) 0.0, Basophils (%) (Auto) 0.0, Neutrophils # (Auto) 18.60, Lymphocytes # (Auto) 1.44, Monocytes # (Auto) 0.84, Eosinophils # (Auto) 0.00, Basophils # (Auto) 0.00 Last Resulted 03/05/17 05:22 Past 24 Hours Test 03/04/17 12:52 03/04/17 21:10 03/05/17 05:22 Range/Units Troponin I 20.200 *H 15.900 *H 11.800 *H 0-0.045 ng/ml Impression: 36-year-old female Inferior, lateral ST segment elevation myocardial infarction due to coronary artery vasospasm in the setting of thyrotoxicosis -Had plain balloon angioplasty to apical portion of LAD -Several short runs of nonsustained ventricular tachycardia 03/03/17, resolved -Subjective palpitations noted prior to hospital arrival before the onset of her chest pain yesterday. -Echo 03/03/17 revealed apical septal, apical, lateral wall motion abnormality , with normal to hyperdynamic function in remaining segments, with low normal LVEF -Repeat study 03/04/17, revealed resolution of the prior wall motion abnormalities, hyperdynamic LVEF >70% -Significant CPK, troponin elevation, trending down -elevated AST, ALT, likely due to [place] Recommendations: Vasospastic angina, is a known manifestation of thyrotoxicosis, or can occur otherwise. Other possibility is microembolic, however, preceding palpitation and findings of sinus tachycardia despite beta jarad and IV diltiazem, and NSVT, are consistent with thyroid storm as being inciting cause. At present , patient has improved with treatment of hyperthyroidism (steroids, methimazole, propranolol), treatment of vasospasm with calcium channel jarad ( intracoronary nitroglycerin in chemical laboratory tester, then topical nitro, --->diltiazem-IV then oral) and ASA, clopidogrel, and heparin . Will plan to discontinue heparin infusion this am having received 48 hours of therapy. If symptoms return off of heparin, raises concern of coronary emboli and may need to reassess priority that there was an embolic etiology and anticoagulation with coumadin would be considered. Continue ASA , Plavix, propranolol which is the beta jarad of choice for hyperthyroidism. DC short acting diltiazem after evening dose today 03/05/17, and start diltiazem CD 120 mg daily. ALT , ALT likely elevated due to [place] (marker of muscle break down) but will hold statin until normalized. Start DVT proph dose lovenox tomorrow, since off of heparin. Transfer to telemetry. Laboratory Results Last 24 Hours Test 03/04/17 10:55 03/04/17 12:52 03/04/17 21:10 03/05/17 05:22 Activated Partial Thromboplast Time 55.4 SECONDS 39.4 SECONDS Partial Thromboplastin Ratio 2.1 1.5 Sodium Level 139 mmol/L 139 mmol/L Potassium Level 4.0 mmol/L 4.1 mmol/L Chloride Level 109 mmol/L 108 mmol/L Carbon Dioxide Level 21 mmol/L 23 mmol/L Anion Gap 9.0 mmol/L 8.0 mmol/L Blood Urea Nitrogen 9 mg/dl 12 mg/dl Creatinine 0.59 mg/dl 0.51 mg/dl Est Creatinine Clear Calc Drug Dose 138.2 ml/min 158.3 ml/min Estimated GFR () 137.6 143.4 Estimated GFR (Non- 118.7 123.7 BUN/Creatinine Ratio 15.3 22.7 Random Glucose 133 mg/dl 130 mg/dl Calcium Level 8.7 mg/dl 8.9 mg/dl Total Bilirubin 0.2 mg/dl 0.3 mg/dl Aspartate Amino Transf (AST/SGOT) 151 U/L 63 U/L Alanine Aminotransferase (ALT/SGPT) 126 U/L 104 U/L Alkaline Phosphatase 91 U/L 86 U/L Total Protein 6.8 gm/dl 6.9 gm/dl Albumin 2.8 gm/dl 2.9 gm/dl Globulin 4.0 gm/dl 4.0 gm/dl Albumin/Globulin Ratio 0.7 0.7 Troponin I 20.200 ng/ml 15.900 ng/ml 11.800 ng/ml White Blood Count 20.96 K/uL Red Blood Count 4.36 M/uL Hemoglobin 12.8 g/dL Hematocrit 38.5 % Mean Corpuscular Volume 88.3 fL Mean Corpuscular Hemoglobin 29.4 pg Mean Corpuscular Hemoglobin Concent 33.2 g/dl Platelet Count 348 K/uL Mean Platelet Volume 9.1 fL Neutrophils (%) (Auto) 88.7 % Lymphocytes (%) (Auto) 6.9 % Monocytes (%) (Auto) 4.0 % Eosinophils (%) (Auto) 0.0 % Basophils (%) (Auto) 0.0 % Neutrophils # (Auto) 18.60 K/uL Lymphocytes # (Auto) 1.44 K/uL Monocytes # (Auto) 0.84 K/uL Eosinophils # (Auto) 0.00 K/uL Basophils # (Auto) 0.00 K/uL RDW Standard Deviation 38.8 fL RDW Coefficient of Variation 12.2 % Immature Granulocyte % (Auto) 0.4 % Immature Granulocyte # (Auto) 0.08 K/uL Phosphorus Level 3.5 mg/dl Magnesium Level 2.2 mg/dl Thyroid Stimulating Hormone (TSH) < 0.005 uIu/ml Free Thyroxine 3.34 ng/dl Free Triiodothyronine 5.44 pg/ml
[2017-03-05] MEDS ORDERED: STOP HEPARIN ORDER ONE (10:00)
--- NOTE | 2017-03-05 10:02 | Progress Note ---
Internal Med Progress Note Date of Service: Mar 05, 2017. Provider Documentation: SUBJECTIVE: Seen and examined at bedside Reports brief period of palpitations this morning Denies chest pain, SOB, Dizziness Feels tired with minimal exertion OBJECTIVE: Vital Signs-as noted below Physical Exam: Vitals signs as noted above General Appearance:Moderately built and nourished, no apparent distress Head: normocephalic, Atraumatic Eyes: normal inspection, EOMI, PERRL Neck: supple, Trachea midline Respiratory/Chest: Normal breath sounds, CTA Cardiovascular: S1, S2, No murmur Abdomen/GI:Soft, Non tender, Bowel sounds present Extremities/Musculoskelatal:normal inspection, no edema Neurologic/Psych:grossly no focal neurological deficits Skin: normal color, warm Lab data as noted below. ASSESSMENT & PLAN: Patient is 36 yr female currently being teated for Inferior,lateral STEMI due to coronary artery vasospasm in setting of uncontrolled Grave's disease Inferior, lateral STEMI/Vasospastic angina In setting of uncontrolled hyperthyroidism Several runs of NSVT S/P balloon angioplasty to the apical portion of the LAD, severe ostial vasospasm RCA Continue aspirin, clopidogrel, BB. IV heparin discontinued after 48 hours Transaminitis likely elevated due to DC . Hold statin for now Uncontrolled Hyperthyroidism: ? Thyroid Criselda H/O Graves' disease Admits to being Non compliant to medications lately TSH: 0.005, T4:2.78, T3:7.67 >>>TSH:0.005, T4:3.34, T3:5.44 On Methimazole, Iodine, Solumedrol, Propranolol ICU team discussed with Endocrinology Leukocytosis: Secondary to steroids Afebrile monitor Hypomagnesemia: Resolved Monitor Hyperlipidemia Hold Lipitor for now DVT px: SQ Lovenox Code status: full code Disposition: Plan to transfer to Telemetry PROCEDURES: ECHO: * There is normal left ventricular wall thickness. * There is a moderate sized apical and lateral wall motion abnormality with hypokinesis of the segments. * Normal contractility to hyperdynamic contractility is noted in the remaining segments. * Left ventricular systolic function is low normal. * The LV Ejection Fraction = 50-55%. * There is mild tricuspid regurgitation. * The pulmonary artery systolic pressure is normal to borderline elevated , wtih PA systolic pressure of 40 mm Hg. Vital Signs: Date Time Temp Pulse Resp B/P (MAP) Pulse Ox O2 Delivery O2 Flow Rate FiO2 03/05/17 06:00 94 Room Air 03/05/17 06:00 84 18 111/59 (76) 96 Room Air 03/05/17 05:00 87 20 132/70 (90) 03/05/17 04:30 36.7 83 20 117/63 (81) 03/05/17 04:00 96 Room Air 03/05/17 03:00 73 18 118/60 (79) 97 Room Air 03/05/17 02:00 89 22 119/69 (86) 96 Room Air 03/05/17 01:00 85 16 110/52 (71) 99 Room Air 03/05/17 00:00 36.7 91 20 94/61 (72) 96 Room Air 03/04/17 23:59 96 Room Air 03/04/17 23:00 81 19 98/62 (74) 96 Room Air 03/04/17 22:00 94 18 134/70 (91) 97 Room Air 03/04/17 21:07 36.6 82 14 114/65 (81) 96 Room Air 03/04/17 20:00 96 Room Air 03/04/17 18:09 85 20 120/66 (84) Room Air 03/04/17 16:00 86 20 106/63 (77) 97 Room Air 03/04/17 16:00 Room Air 03/04/17 14:00 92 23 97 Room Air 03/04/17 12:00 97 Room Air 03/04/17 12:00 91 21 128/63 (84) 97 Room Air 03/04/17 10:00 84 20 111/63 (79) 98 Room Air Lab Results: Results Past 24 Hours Test 03/04/17 10:55 03/04/17 12:52 03/04/17 21:10 03/05/17 05:22 Range/Units Activated Partial Thromboplast Time 55.4 39.4 21.0-31.0 SECONDS Partial Thromboplastin Ratio 2.1 1.5 Sodium Level 139 139 136-145 mmol/L Potassium Level 4.0 4.1 3.5-5.1 mmol/L Chloride Level 109 108 98-107 mmol/L Carbon Dioxide Level 21 23 21-32 mmol/L Anion Gap 9.0 8.0 3-11 mmol/L Blood Urea Nitrogen 9 12 7-18 mg/dl Creatinine 0.59 0.51 0.60-1.20 mg/dl Est Creatinine Clear Calc Drug Dose 138.2 158.3 ml/min Estimated GFR () 137.6 143.4 Estimated GFR (Non- 118.7 123.7 BUN/Creatinine Ratio 15.3 22.7 10-20 Random Glucose 133 130 70-99 mg/dl Calcium Level 8.7 8.9 8.5-10.1 mg/dl Total Bilirubin 0.2 0.3 0.2-1 mg/dl Aspartate Amino Transf (AST/SGOT) 151 63 15-37 U/L Alanine Aminotransferase (ALT/SGPT) 126 104 12-78 U/L Alkaline Phosphatase 91 86 45-117 U/L Total Protein 6.8 6.9 6.4-8.2 gm/dl Albumin 2.8 2.9 3.4-5.0 gm/dl Globulin 4.0 4.0 2.5-4.0 gm/dl Albumin/Globulin Ratio 0.7 0.7 0.9-2 Troponin I 20.200 15.900 11.800 0-0.045 ng/ml White Blood Count 20.96 4.8-10.8 K/uL Red Blood Count 4.36 4.2-5.4 M/uL Hemoglobin 12.8 12.0-16.0 g/dL Hematocrit 38.5 37-47 % Mean Corpuscular Volume 88.3 80-100 fL Mean Corpuscular Hemoglobin 29.4 25-34 pg Mean Corpuscular Hemoglobin Concent 33.2 32-36 g/dl Platelet Count 348 130-400 K/uL Mean Platelet Volume 9.1 7.4-10.4 fL Neutrophils (%) (Auto) 88.7 % Lymphocytes (%) (Auto) 6.9 % Monocytes (%) (Auto) 4.0 % Eosinophils (%) (Auto) 0.0 % Basophils (%) (Auto) 0.0 % Neutrophils # (Auto) 18.60 1.4-6.5 K/uL Lymphocytes # (Auto) 1.44 1.2-3.4 K/uL Monocytes # (Auto) 0.84 0.11-0.59 K/uL Eosinophils # (Auto) 0.00 0-0.5 K/uL Basophils # (Auto) 0.00 0-0.2 K/uL RDW Standard Deviation 38.8 36.4-46.3 fL RDW Coefficient of Variation 12.2 11.5-14.5 % Immature Granulocyte % (Auto) 0.4 % Immature Granulocyte # (Auto) 0.08 0.00-0.02 K/uL Phosphorus Level 3.5 2.5-4.9 mg/dl Magnesium Level 2.2 1.8-2.4 mg/dl Thyroid Stimulating Hormone (TSH) < 0.005 0.300-4.500 uIu/ml Free Thyroxine 3.34 0.80-1.60 ng/dl Free Triiodothyronine 5.44 2.30-4.20 pg/ml
--- NOTE | 2017-03-05 11:50 | Critical Care Progress Note ---
Critical Care Progress Note Date of Service Mar 05, 2017. ICU Day ICU Day Number: [address] Salgado Subjective Patient feeling well today. Intermittent chest discomfort and palpitations persist, but patient says they self-resolve. Her headaches have resolved since discontinuing the nitro paste. She has done some minimal ambulation, without exacerbation/recurrence of chest discomfort, but does feel like her exercise tolerance has declined. She would like to ambulate more today. She otherwise denies dyspnea, diaphoresis, abdominal pain, tremors, nausea or vomiting. She is tolerating diet. She is voiding. Still has not had a BM since just prior to arrival in hospital. She does not however feel constipated, and continues to decline laxatives at this time. Objective GENERAL: sleeping but easy to wake, well appearing, lying in bed, no acute distress, non-toxic HEAD: Normocephalic, atraumatic. No sinus tenderness. EYES: PERRL, EOMI, normal conjunctiva OROPHARYNX: no exudate, no erythema, lips, buccal mucosa, and tongue normal and mucous membranes are moist NECK: supple, no adenopathy, non-tender, mild thyromegaly LUNGS: Clear to auscultation. Normal chest wall mechanics, good air entry. No crepitations, crackles, or wheezes HEART: S1 and S2 normal, no murmur appreciated CHEST: No reproducible tenderness. ABDOMEN: abdomen soft, non-tender, normo-active bowel sounds, no masses, no rebound or guarding. BACK: Back is symmetrical on inspection, no deformities, no midline tenderness, no CVA tenderness. SKIN: Warm, pink, dry. No erythema, rashes, or bruising. EXTREMITIES: Grossly normal. Moving all 4 limbs. No hand tremors. No pitting edema. Calves non tender. Strength 5/5. NEURO: Alert, Ox3. No focal deficits. Cranial nerves II-XII grossly intact, normal speech. PSYCH: Mood and affect appropriate. Current SOFA Score SOFA Score Response (Comments) Value Platelets (x10) > 150 0 Bilirubin (mg/dL) < 1.2 0 [place] Coma Score 15 0 Level of Hypotension No Hypotension 0 Creatinine (mg/dL) < 1.2 0 Total 0 Assessment & Plan 36 year old female in ICU due to cardiovascular manifestations associated with uncontrolled Grave's disease Neuro - CAM negative - Ativan PRN agitation - Tylenol PRN pain CV - Vitals this morning noted to be improved in to 80s-100s, with stable SBP - Increased PO propanol from 20 to 30mg TID - Troponin continues downward trend. Latest echo shows resolution of wall motion abnormality and hyperdynamic LV and RV. Cardiology on board. - Heparin drip discontinued after 48 hours of completed therapy since event - monitor for recurrence of cardiac symptoms, which would raise suspicion for coronary occlusion emboli. - Continue aspirin and clopidogrel - Switch to long acting diltiazem 120mg daily starting 03/06/17 Pulm - Spontaneous breathing, with good saturation on RA GI/nutrition - Normal diet - Continued evidence of transaminitis - slightly improved today. Continue to trend LFTs Renal/fluids - Renal function acceptable. No fluids warranted. - Potassium and magnesium supplemented, and now within normal limits. Phosphorus low today and supplemented - reassess tomorrow ID - No evidence of infection Endo - Continuing aggressive treatment for thyroid storm for 48 hours, especially as repeat TFTs show worsening T4, although T3 improved - Continue Methimazole 20mg TID. - Continue IV methylprednisone 40mg BID x 5 more days, then taper over 7 days: IV methylprednisone 20mg x 2 day, PO prednisone 40mg OD x 1 day, 30mg OD x 1 day , 20mg OD x 1 day, 10mg OD x 2 days, then stop - Continue potassium iodide 250mg q6h for 5 day duration total - Consulted heavy equipment field mechanic at [facility], Dr. Yumiko Whyte - Once repeat TFTs show improvement, methimazole to be tapered 20mg BID x 3 days , 20mg OD x 3 days, with eventual goal of 10mg OD - Monitor TFTs and LFTs If LFTs continue to rise, particularly if >3x upper limit of normal, reconsult Dr. Whyte - both methimazole and especially PTU can contribute to transaminitis, although she notes this patient had elevated LFTs prior to commencing therapy - Patient needs close outpatient follow up with TFT and LFT 1 week post discharge. She wishes to change endocrinologists. Heme - Leukocytosis, likely secondary to steroid use. Continue to trend. - Coag profile negative Access - 2 peripheral lines DVT PPx - Therapeutic heparin drip discontinued. Start DVT prophylaxis dose enoxaparin starting 03/06/17 Resident Physician Supervision Note: Dr. Hicks was resident physician during care of patient. I separately evaluated patient and did history and exam. I discussed the case with the resident and generally agree with the findings and plan. Thyroid function studies continue to elevate, will continue extended steroid taper to 5 days and extend iodine treatment per endocrinology recommendations. Increasing propranolol and having less PVCs and tachycardia on cardiac monitoring. Cardiology following, we will downgraded to a telemetry today Documented By: Selvin Salgado DO Consults & Procedures Consultants: Cardiology, Dr. Joshua Chase Endocrinology, Dr. Aubrey Heath Procedures: 2 peripheral IV lines Cardiac catheterization 03/03/17 Data Medications: Current Inpatient Medications Medications (Trade) Dose Ordered Sig/Charito Route Start Time Stop Time Status Last Admin Dose Admin Ioversol (Optiray 320) 100 ml UD PRN IV 03/03/17 02:45 03/07/17 02:44 Nitroglycerin (Nitrostat Tab) 0.4 mg UD PRN SL 03/03/17 02:45 04/02/17 02:44 03/03/17 04:45 0.4 MG Atropine Sulfate (Atropine Sulfate 0.1MG/Ml Inj) 0.5 mg ONE PRN IV 03/03/17 02:45 04/02/17 02:44 Ondansetron HCl 8 mg/Dextrose 54 ml @ 200 mls/hr Q6H PRN IV 03/03/17 02:45 04/02/17 02:44 Aspirin (Ecotrin Tab) 81 mg QAM PO 03/03/17 09:00 04/02/17 08:59 03/05/17 08:35 81 MG Clopidogrel Bisulfate (plAVix TAB) 75 mg QAM PO 03/03/17 09:00 04/02/17 08:59 03/05/17 08:36 75 MG Acetaminophen (Tylenol Tab) 650 mg Q4H PRN PO 03/03/17 02:45 04/02/17 02:44 03/04/17 08:25 650 MG Lorazepam (Ativan Tab) 0.5 mg Q6H PRN PO 03/03/17 02:45 04/02/17 02:44 03/04/17 08:25 0.5 MG Methimazole (Methimazole Tab) 20 mg TID PO 03/03/17 09:00 04/02/17 08:59 03/05/17 08:36 20 MG Methylprednisolone Sodium Succinate 40 mg/Syringe 0.64 ml @ 1.5 mls/min BID IV 03/03/17 21:00 03/07/17 23:59 03/05/17 08:34 1.5 MLS/MIN Potassium Iodide (Sski Soln 50mg/ Drop) 250 mg Q6 PO 03/03/17 10:00 03/07/17 23:59 03/05/17 06:07 250 MG Diltiazem HCl (Cardizem Tab) 30 mg TID PO 03/04/17 09:00 03/05/17 23:59 03/05/17 08:35 30 MG Propranolol HCl (Inderal Tab) 30 mg TID PO 03/05/17 09:00 04/04/17 08:59 03/05/17 08:36 30 MG Methylprednisolone Sodium Succinate 20 mg/Syringe 0.32 ml @ 1.5 mls/min BID IV 03/08/17 09:00 03/09/17 21:01 Prednisone (PredniSONE TAB) 40 mg Taper DAILY PO 03/10/17 09:00 03/15/17 08:59 Enoxaparin Sodium (Lovenox Inj) 40 mg QAM SQ 03/06/17 09:00 04/05/17 08:59 Diltiazem HCl (Cardizem Cd Cap) 120 mg QAM PO 03/06/17 09:00 04/05/17 08:59 Vital Signs: Date Time Temp Pulse Resp B/P (MAP) Pulse Ox O2 Delivery O2 Flow Rate FiO2 03/05/17 06:00 94 Room Air 03/05/17 06:00 84 18 111/59 (76) 96 Room Air 03/05/17 05:00 87 20 132/70 (90) 03/05/17 04:30 36.7 83 20 117/63 (81) 03/05/17 04:00 96 Room Air 03/05/17 03:00 73 18 118/60 (79) 97 Room Air 03/05/17 02:00 89 22 119/69 (86) 96 Room Air 03/05/17 01:00 85 16 110/52 (71) 99 Room Air 03/05/17 00:00 36.7 91 20 94/61 (72) 96 Room Air 03/04/17 23:59 96 Room Air 03/04/17 23:00 81 19 98/62 (74) 96 Room Air 03/04/17 22:00 94 18 134/70 (91) 97 Room Air 03/04/17 21:07 36.6 82 14 114/65 (81) 96 Room Air 03/04/17 20:00 96 Room Air 03/04/17 18:09 85 20 120/66 (84) Room Air 03/04/17 16:00 86 20 106/63 (77) 97 Room Air 03/04/17 16:00 Room Air 03/04/17 14:00 92 23 97 Room Air 03/04/17 12:00 97 Room Air 03/04/17 12:00 91 21 128/63 (84) 97 Room Air Laboratory Results: Last 24 Hours Test 03/04/17 10:55 03/04/17 12:52 03/04/17 21:10 03/05/17 05:22 Activated Partial Thromboplast Time 55.4 SECONDS 39.4 SECONDS Partial Thromboplastin Ratio 2.1 1.5 Sodium Level 139 mmol/L 139 mmol/L Potassium Level 4.0 mmol/L 4.1 mmol/L Chloride Level 109 mmol/L 108 mmol/L Carbon Dioxide Level 21 mmol/L 23 mmol/L Anion Gap 9.0 mmol/L 8.0 mmol/L Blood Urea Nitrogen 9 mg/dl 12 mg/dl Creatinine 0.59 mg/dl 0.51 mg/dl Est Creatinine Clear Calc Drug Dose 138.2 ml/min 158.3 ml/min Estimated GFR () 137.6 143.4 Estimated GFR (Non- 118.7 123.7 BUN/Creatinine Ratio 15.3 22.7 Random Glucose 133 mg/dl 130 mg/dl Calcium Level 8.7 mg/dl 8.9 mg/dl Total Bilirubin 0.2 mg/dl 0.3 mg/dl Aspartate Amino Transf (AST/SGOT) 151 U/L 63 U/L Alanine Aminotransferase (ALT/SGPT) 126 U/L 104 U/L Alkaline Phosphatase 91 U/L 86 U/L Total Protein 6.8 gm/dl 6.9 gm/dl Albumin 2.8 gm/dl 2.9 gm/dl Globulin 4.0 gm/dl 4.0 gm/dl Albumin/Globulin Ratio 0.7 0.7 Troponin I 20.200 ng/ml 15.900 ng/ml 11.800 ng/ml White Blood Count 20.96 K/uL Red Blood Count 4.36 M/uL Hemoglobin 12.8 g/dL Hematocrit 38.5 % Mean Corpuscular Volume 88.3 fL Mean Corpuscular Hemoglobin 29.4 pg Mean Corpuscular Hemoglobin Concent 33.2 g/dl Platelet Count 348 K/uL Mean Platelet Volume 9.1 fL Neutrophils (%) (Auto) 88.7 % Lymphocytes (%) (Auto) 6.9 % Monocytes (%) (Auto) 4.0 % Eosinophils (%) (Auto) 0.0 % Basophils (%) (Auto) 0.0 % Neutrophils # (Auto) 18.60 K/uL Lymphocytes # (Auto) 1.44 K/uL Monocytes # (Auto) 0.84 K/uL Eosinophils # (Auto) 0.00 K/uL Basophils # (Auto) 0.00 K/uL RDW Standard Deviation 38.8 fL RDW Coefficient of Variation 12.2 % Immature Granulocyte % (Auto) 0.4 % Immature Granulocyte # (Auto) 0.08 K/uL Phosphorus Level 3.5 mg/dl Magnesium Level 2.2 mg/dl Thyroid Stimulating Hormone (TSH) < 0.005 uIu/ml Free Thyroxine 3.34 ng/dl Free Triiodothyronine 5.44 pg/ml
[2017-03-05 13:46] LABS: PARTIAL THROMBOPLASTIN RATIO 0.8
[2017-03-05 15:08] LABS: COD UR NEGATIVE NG/ML (CUTOFF=50); HYDROCOD UR NEGATIVE NG/ML (CUTOFF=50); HYDROMOR UR NEGATIVE NG/ML (CUTOFF=50); HYDROXYETHYLFLURAZEPAM CONF NEGATIVE NG/ML (CUTOFF=50); HYDROXYMIDAZOLAM 261 NG/ML (CUTOFF=50); HYDROXYTRIAZOLAM CONF NEGATIVE NG/ML (CUTOFF=50); MORPHINE UR 864 NG/ML (CUTOFF=50); NORHYDROCODONE CONF UR NEGATIVE NG/ML (CUTOFF=50); OXYMORPH UR NEGATIVE NG/ML (CUTOFF=50); TEMAZEPAM CONF NEGATIVE NG/ML (CUTOFF=50)
[2017-03-06] VITALS (9 sets, daily range): BP systolic 102–122; BP diastolic 64–78; PULSE 59–86; TEMP 36.7–36.9; O2SAT 96–97
[2017-03-06] MEDS: POTASSIUM IODIDE SOLN 1 GM/ML 30 ML PO SCH ×4 (00:07→18:39)
[2017-03-06 07:29] LABS: BASO % 0.1 %; BASO ABS # 0.01 K/uL (0-0.2); COMPLETE YES; HEMATOCRIT 37.8 % (37-47); IG% 0.6 %; MEAN CELL VOLUME 87.5 fL (80-100); MEAN CORPUSCULAR HEMOGLOBIN 30.3 pg (25-34); MEAN CORPUSCULAR HGB CONC 34.7 g/dl (32-36); MONO % 6.5 %; NEUT % 84.8 %; PLATELET COUNT 335 K/uL (130-400); RED BLOOD COUNT 4.32 M/uL (4.2-5.4)
[2017-03-06 07:37] LABS: PARTIAL THROMBOPLASTIN RATIO 0.8
[2017-03-06 08:01] LABS: BUN/CREATININE RATIO 20.9 (10-20); CALCIUM 8.7 mg/dl (8.5-10.1); CREATININE 0.55 mg/dl (0.60-1.20); POTASSIUM 3.9 mmol/L (3.5-5.1)
[2017-03-06] MEDS: METHIMAZOLE 5 MG TAB PO SCH ×3 (08:06→21:07)
[2017-03-06] MEDS: ENOXAPARIN 40 MG/0.4 ML SYR SQ SCH (08:06)
[2017-03-06] MEDS: DILTIAZEM HCL 120 MG CAPCR PO SCH (08:07)
[2017-03-06] MEDS: PROPRANOLOL HCL 10 MG TAB PO SCH (08:07)
[2017-03-06] MEDS: CLOPIDOGREL BISULFATE 75 MG TAB PO SCH (08:07)
[2017-03-06] MEDS: ASPIRIN 81 MG ECTAB PO SCH (08:07)
[2017-03-06] MEDS: METHYLPREDNISOLONE IV 40 MG in SYRINGE 0 ML IV SCH ×2 (08:08→21:08)
[2017-03-06] MEDS ORDERED: PROPRANOLOL HCL 60 MG LA CAP PO ONE (10:03)
--- NOTE | 2017-03-06 10:10 | Cardiology Follow-Up ---
Subjective General Date of Service: Mar 06, 2017. Chief Complaint: follow up chest pain, palpitations, AR Pt evaluation today including: conversation w/ patient, physical exam History of Present Illness The patient is a 37 year old female seen in follow up. Patient was transferred from ICU to telemetry yesterday and is seen in room 243- 1. Telemetry reveals stable SR. No VT since 03/03/17. SB down to the 50's noted with sleep, SR in 60-80bpm range noted while sitting up in bed at present. Denies chest pain, denies lightheadedness. EKG this shira 03/06/17, has improved with SR, and resolution of the prior inferior and lateral T w inversions , compared to yesterday. Still mild residual ST segment elevation in inferior leads. Allergies Coded Allergies: No Known Allergies (Verified , 03/03/17) Social History Smoking Status: Never Smoker Hx Tobacco Use In Past Year?: No Hx Alcohol Use - Type And Amou: Yes (socially) Hx Substance Use - Type And Am: No Problem List Medical Problems: (1) Forearm contusion Status: Acute (2) STEMI (ST elevation myocardial infarction) Status: Acute Physical Exam Vital Signs Last Vital Signs Documentation Date Time Temp Pulse Resp B/P (MAP) Pulse Ox O2 Delivery O2 Flow Rate FiO2 03/06/17 08:00 Room Air 03/06/17 06:48 36.7 77 20 122/78 (93) 97 03/03/17 01:28 2.0 Physical Exam Constitutional: General Apperance: heathly-appearing Level of Distress: NAD Psychiatric: Mental Status: active & alert Orientation: to time, to place, to person Head: normocephalic, atraumatic Neck: supple, trachea midline Lungs: Auscultation: no wheezing, no rales/crackles, no rhonchi Cardiovascular: Heart Auscultation: RRR, no murmurs, no rubs, no gallops Abdomen: Inspection & Palpation: soft, non-distended, no tenderness, guarding & rebound Extremities: no edema Neurologic: Gait & Station: pertinent finding (no focal neuro deficits ) Assessment and Plan Assessment and Plan Impression: 36-year-old female Inferior, lateral ST segment elevation myocardial infarction due to coronary artery vasospasm in the setting of thyrotoxicosis -Had plain balloon angioplasty to apical portion of LAD -Several short runs of nonsustained ventricular tachycardia 03/03/17, resolved -Subjective palpitations noted prior to hospital arrival before the onset of her chest pain- resolved -Echo 03/03/17 revealed apical septal, apical, lateral wall motion abnormality , with normal to hyperdynamic function in remaining segments, with low normal LVEF -Repeat study 03/04/17, revealed resolution of the prior wall motion abnormalities, hyperdynamic LVEF >70% -Significant CPK, troponin elevation, trending down -elevated AST, ALT, likely due to AR Recommendations: Vasospastic angina, is a known manifestation of thyrotoxicosis, or can occur otherwise. Other possibility is microembolic, however, preceding palpitation and findings of sinus tachycardia despite beta jarad and IV diltiazem, and NSVT, are consistent with thyroid storm as being inciting cause. 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 Patient stable having completed 48 hours of UF heparin infusion (stopped 03/05/17 ). Continue ASA , Plavix, propranolol which is the beta jarad of choice for hyperthyroidism. Transitioned to long acting diltiazem. Will transition to long acting propranolol today. Repeat LFTs, atorvastatin held for now. Plan possible Discharge to home tomorrow. Will need cardiac meds as above and follow up with me within a few weeks as outpt. 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 SQ lovenox for DVT prophylaxis. Laboratory Results Last 24 Hours Test 03/05/17 13:13 03/06/17 07:15 Activated Partial Thromboplast Time 21.7 SECONDS 20.4 SECONDS Partial Thromboplastin Ratio 0.8 0.8 White Blood Count 18.80 K/uL Red Blood Count 4.32 M/uL Hemoglobin 13.1 g/dL Hematocrit 37.8 % Mean Corpuscular Volume 87.5 fL Mean Corpuscular Hemoglobin 30.3 pg Mean Corpuscular Hemoglobin Concent 34.7 g/dl Platelet Count 335 K/uL Mean Platelet Volume 9.0 fL Neutrophils (%) (Auto) 84.8 % Lymphocytes (%) (Auto) 8.0 % Monocytes (%) (Auto) 6.5 % Eosinophils (%) (Auto) 0.0 % Basophils (%) (Auto) 0.1 % Neutrophils # (Auto) 15.95 K/uL Lymphocytes # (Auto) 1.50 K/uL Monocytes # (Auto) 1.22 K/uL Eosinophils # (Auto) 0.00 K/uL Basophils # (Auto) 0.01 K/uL RDW Standard Deviation 38.6 fL RDW Coefficient of Variation 12.0 % Immature Granulocyte % (Auto) 0.6 % Immature Granulocyte # (Auto) 0.12 K/uL Sodium Level 137 mmol/L Potassium Level 3.9 mmol/L Chloride Level 107 mmol/L Carbon Dioxide Level 23 mmol/L Anion Gap 7.0 mmol/L Blood Urea Nitrogen 12 mg/dl Creatinine 0.55 mg/dl Est Creatinine Clear Calc Drug Dose 147.4 ml/min Estimated GFR () 139.9 Estimated GFR (Non- 120.7 BUN/Creatinine Ratio 20.9 Random Glucose 119 mg/dl Calcium Level 8.7 mg/dl
[2017-03-06 11:57] LABS: AST/SGOT 34 U/L (15-37); BLOOD UREA NITROGEN 13 mg/dl (7-18); BUN/CREATININE RATIO 22.9 (10-20); CALCIUM 8.7 mg/dl (8.5-10.1); CARBON DIOXIDE 25 mmol/L (21-32); CHLORIDE 106 mmol/L (98-107); CREATININE 0.56 mg/dl (0.60-1.20); GLUCOSE 117 mg/dl (70-99); POTASSIUM 4.4 mmol/L (3.5-5.1); SODIUM 136 mmol/L (136-145)
[2017-03-06 12:05] LABS: ALB/GLOB RATIO 0.8 (0.9-2); ALKALINE PHOSPHATASE 82 U/L (45-117); ALT/SGPT 85 U/L (12-78)
--- NOTE | 2017-03-06 12:29 | Progress Note ---
Internal Med Progress Note Date of Service: Mar 06, 2017. Provider Documentation: SUBJECTIVE: Seen and examined at bedside Denies chest pain, SOB, palpitation Weakness improving No new complaints OBJECTIVE: Vital Signs-as noted below Physical Exam: Vitals signs as noted above General Appearance:Moderately built and nourished, no apparent distress Head: normocephalic, Atraumatic Eyes: normal inspection, EOMI, PERRL Neck: supple, Trachea midline Respiratory/Chest: Normal breath sounds, CTA Cardiovascular: S1, S2, No murmur Abdomen/GI:Soft, Non tender, Bowel sounds present Extremities/Musculoskelatal:normal inspection, no edema Neurologic/Psych:grossly no focal neurological deficits Skin: normal color, warm Lab data as noted below. ASSESSMENT & PLAN: Patient is 36 yr female currently being teated for Inferior,lateral STEMI due to coronary artery vasospasm in setting of uncontrolled Grave's disease Inferior, lateral STEMI/Vasospastic angina In setting of uncontrolled hyperthyroidism Several runs of NSVT S/P balloon angioplasty to the apical portion of the LAD, severe ostial vasospasm RCA Continue aspirin, clopidogrel, cardizem IV heparin discontinued after 48 hours Transaminitis likely elevated due to [place] . Hold statin for now Appreciate cardiology help Uncontrolled Hyperthyroidism: ? Thyroid Criselda H/O Graves' disease Admits to being Non compliant to medications lately TSH: 0.005, T4:2.78, T3:7.67 >>>TSH:0.005, T4:3.34, T3:5.44 On Methimazole, Iodine, Solumedrol, Propranolol Endocrinology consulted Continue Methimazole 20mg TID. Continue IV methylprednisone and later plan to taper to prednisone over 7 days Continue potassium iodide 250mg q6h for 5 day duration total (Day 4/5) ICU team discussed with carrier packer at [facility], Dr. Yumiko Whyte Plan to taper methimazole once TFTs improve (Methimazole to be tapered 20mg BID x 3 days, 20mg OD x 3 days, with eventual goal of 10mg OD) Monitor TFTs and LFTs Needs outpatient follow up with Endocrinology: TFT and LFT 1 week post discharge Leukocytosis: Secondary to steroids Afebrile monitor Hypomagnesemia: Resolved Monitor Hyperlipidemia Hold Lipitor for now DVT px: SQ Lovenox Code status: full code Disposition: Plan to transfer to Telemetry PROCEDURES: ECHO: * There is normal left ventricular wall thickness. * There is a moderate sized apical and lateral wall motion abnormality with hypokinesis of the segments. * Normal contractility to hyperdynamic contractility is noted in the remaining segments. * Left ventricular systolic function is low normal. * The LV Ejection Fraction = 50-55%. * There is mild tricuspid regurgitation. * The pulmonary artery systolic pressure is normal to borderline elevated , wtih PA systolic pressure of 40 mm Hg. Vital Signs: Date Time Temp Pulse Resp B/P (MAP) Pulse Ox O2 Delivery O2 Flow Rate FiO2 03/06/17 10:22 36.8 59 20 102/64 (77) 96 Room Air 03/06/17 08:00 Room Air 03/06/17 06:48 36.7 77 20 122/78 (93) 97 Room Air 03/06/17 04:00 97 Room Air 03/06/17 03:57 36.7 86 18 107/69 (82) 97 Room Air 03/06/17 00:01 96 Room Air 03/06/17 00:00 36.8 82 18 118/75 (89) 96 Room Air 03/05/17 20:00 97 Room Air 03/05/17 19:39 36.9 87 20 112/68 (83) 97 Room Air 03/05/17 16:00 98 Room Air 03/05/17 15:10 36.7 83 20 99/66 (77) 98 Room Air 03/05/17 13:07 88 99/63 (75) Lab Results: Results Past 24 Hours Test 03/05/17 13:13 03/06/17 07:15 03/06/17 11:14 Range/Units Activated Partial Thromboplast Time 21.7 20.4 21.0-31.0 SECONDS Partial Thromboplastin Ratio 0.8 0.8 White Blood Count 18.80 4.8-10.8 K/uL Red Blood Count 4.32 4.2-5.4 M/uL Hemoglobin 13.1 12.0-16.0 g/dL Hematocrit 37.8 37-47 % Mean Corpuscular Volume 87.5 80-100 fL Mean Corpuscular Hemoglobin 30.3 25-34 pg Mean Corpuscular Hemoglobin Concent 34.7 32-36 g/dl Platelet Count 335 130-400 K/uL Mean Platelet Volume 9.0 7.4-10.4 fL Neutrophils (%) (Auto) 84.8 % Lymphocytes (%) (Auto) 8.0 % Monocytes (%) (Auto) 6.5 % Eosinophils (%) (Auto) 0.0 % Basophils (%) (Auto) 0.1 % Neutrophils # (Auto) 15.95 1.4-6.5 K/uL Lymphocytes # (Auto) 1.50 1.2-3.4 K/uL Monocytes # (Auto) 1.22 0.11-0.59 K/uL Eosinophils # (Auto) 0.00 0-0.5 K/uL Basophils # (Auto) 0.01 0-0.2 K/uL RDW Standard Deviation 38.6 36.4-46.3 fL RDW Coefficient of Variation 12.0 11.5-14.5 % Immature Granulocyte % (Auto) 0.6 % Immature Granulocyte # (Auto) 0.12 0.00-0.02 K/uL Sodium Level 137 136 136-145 mmol/L Potassium Level 3.9 4.4 3.5-5.1 mmol/L Chloride Level 107 106 98-107 mmol/L Carbon Dioxide Level 23 25 21-32 mmol/L Anion Gap 7.0 5.0 3-11 mmol/L Blood Urea Nitrogen 12 13 7-18 mg/dl Creatinine 0.55 0.56 0.60-1.20 mg/dl Est Creatinine Clear Calc Drug Dose 147.4 144.8 ml/min Estimated GFR () 139.9 139.0 Estimated GFR (Non- 120.7 120.0 BUN/Creatinine Ratio 20.9 22.9 10-20 Random Glucose 119 117 70-99 mg/dl Calcium Level 8.7 8.7 8.5-10.1 mg/dl Total Bilirubin 0.3 0.2-1 mg/dl Direct Bilirubin < 0.1 0-0.2 mg/dl Aspartate Amino Transf (AST/SGOT) 34 15-37 U/L Alanine Aminotransferase (ALT/SGPT) 85 12-78 U/L Alkaline Phosphatase 82 45-117 U/L Total Protein 7.0 6.4-8.2 gm/dl Albumin 3.0 3.4-5.0 gm/dl Globulin 4.0 2.5-4.0 gm/dl Albumin/Globulin Ratio 0.8 0.9-2
--- NOTE | 2017-03-06 23:30 | Progress Note ---
Post ICU Progress Note Date & Time Mar 06, 2017 at 22:27 Vital Signs Vital Signs Past 12 Hours Date Time Temp Pulse Resp B/P (MAP) Pulse Ox O2 Delivery O2 Flow Rate FiO2 03/06/17 20:00 Room Air 03/06/17 19:33 36.9 60 20 118/66 (83) 97 Room Air 03/06/17 16:00 Room Air 03/06/17 15:29 36.7 59 21 109/71 (84) 97 Room Air 03/06/17 12:00 Room Air Notes Mental Status: alert / awake, participated in evaluation Nausea / Vomiting: adequately controlled Pain: adequately controlled Airway Patency, RR, SpO2: stable & adequate BP & HR: stable & adequate Romina Mosley is a 37-year-old male who presented to the emergency department on March 03 for sudden onset chest pain that awoke her from her sleep. She described it as crushing chest pain that radiated to her left arm and jaw. EKG in the emergency department demonstrated ST depression in anterior leads V1 and [address] elevation in inferior and lateral leads; patient's heart rate was 101 bpm. Patient was treated with heparin, Cardene, Versed, nitroglycerin and fentanyl and taken to the cardiac qc lab technician. In the Software Quality Automation Engineer; developer advisor found severe vasospasm of the distal LAD as well as the ostium of the RCA.. Patient underwent balloon angioplasty of the distal LAD and RCA and vasospasm was noted to have improved somewhat with intracoronary nitroglycerin. Patient was treated with aspirin, compatible, and Integrilin and transferred to the ICU. Patient had reported that she has suffered from increased palpitations for a number of years and has been taking methimazole for Graves' disease secondary to hyperthyroidism. She does report that she has not been consistently taking the medication as prescribed secondary to a misunderstanding of how the prescription was to be administered. She had been previously told by medical office secretary that she was able to take an additional pill if she felt she needed it and therefore she had assumed if she was feeling well she could also discontinue at her leisure. Laboratory testing did indeed find the patient to be hyperthyroid. During her stay in the ICU she noted occasional palpitations and nonsustained ventricular tachycardia as noted on telemetry. Patient's troponin was elevated and she did undergo serial cardiac ECHO that has demonstrated improvement of a moderate sized wall motion abnormality. Per her recollection today patient is to undergo an additional echocardiogram with Dr. Chase as an outpatient. While in the ICU patient did not require invasive monitoring such as central line access/ arterial line nor did she require endotracheal intubation. Patient was transferred to telemetry on March 05; having had a uneventful admission to the ICU. On examining the patient today I find her in good spirits with her and friend in the room. She states that she was very impressed with the ICU staff in the care provided by the doctors. She names of multiple members of the nursing staff that one above and beyond and is very impressed that [facility] is in her backyard. She is still concerned about outpatient follow-up and is slightly hesitant for possible discharge tomorrow. She states she is still occasionally feeling her heart beat; while does not flutter or cause pain, she is concerned about whether this is thyroid issues or anxiety about her continuum of care. She is concerned at this point whether she should have her thyroid removed and then rely on thyroid replacement hormone for the rest of her life, possible ablation of her thyroid versus removal. She is also concerned about keeping her thyroid and relying on the methimazole for the remainder of her life. She states she is not completely comfortable with her current health care providers and multiple times asked for guidance. Upon chart review and physical exam; I find nothing that qualifies this patient for critical care and feel that she is stable at this time. There are no new exam findings and the patient has a negative review of systems aside from the anxiety noted above. Consider outpatient follow up in 1 to 2 weeks with: Dr. Chase (Track Maintainer) , Endocrinology (Dr. Yumiko Whyte; [facility], consulted via telephone while inpt ), Dr. Robertson (PCP) Repeat imaging needed: N/A Follow up cultures: N/A Reviewed progress notes, labs, and inpatient medication list Continue current management Additional recommendations: N/A Patient is stable this time in critical care will sign off. Thank you for including us in the care of this patient and please feel free to reconsult as needed. Consults & Procedures Consultants: Cardiology, Dr. Joshua Chase Endocrinology, Dr. Aubrey Heath Procedures: Cardiac catheterization 03/03/17
[2017-03-07] MEDS: POTASSIUM IODIDE SOLN 1 GM/ML 30 ML PO SCH ×3 (00:23→12:28)
[2017-03-07 04:01] VITALS: BP 123/78; PULSE 57; TEMP 36.9; O2SAT 98
[2017-03-07 07:31] LABS: PARTIAL THROMBOPLASTIN RATIO 0.8
[2017-03-07 07:44] VITALS: BP 111/74; PULSE 61; TEMP 36.6; O2SAT 97
[2017-03-07 08:06] LABS: ALKALINE PHOSPHATASE 84 U/L (45-117); ALT/SGPT 73 U/L (12-78); AST/SGOT 19 U/L (15-37); THYROID STIMULATING HORMONE < 0.005 uIu/ml (0.300-4.500)
[2017-03-07] MEDS ORDERED: PROPRANOLOL HCL 60 MG LA CAP PO SCH (09:00)
[2017-03-07] MEDS: METHYLPREDNISOLONE IV 40 MG in SYRINGE 0 ML IV SCH (09:20)
[2017-03-07] MEDS: METHIMAZOLE 5 MG TAB PO SCH ×2 (09:20→15:53)
[2017-03-07] MEDS: ASPIRIN 81 MG ECTAB PO SCH (09:21)
[2017-03-07] MEDS: ENOXAPARIN 40 MG/0.4 ML SYR SQ SCH (09:21)
[2017-03-07] MEDS: DILTIAZEM HCL 120 MG CAPCR PO SCH (09:21)
[2017-03-07] MEDS: CLOPIDOGREL BISULFATE 75 MG TAB PO SCH (09:21)
[2017-03-07 10:54] VITALS: BP 133/82; PULSE 77; TEMP 36.7; O2SAT 98
--- NOTE | 2017-03-07 12:45 | Progress Note ---
Internal Med Progress Note Date of Service: Mar 07, 2017. Provider Documentation: SUBJECTIVE: Seen and examined at bedside States feels well Denies chest pain, SOB, palpitation No new complaints Family at bedside OBJECTIVE: Vital Signs-as noted below Physical Exam: Vitals signs as noted above General Appearance:Moderately built and nourished, no apparent distress Head: normocephalic, Atraumatic Eyes: normal inspection, EOMI, PERRL Neck: supple, Trachea midline Respiratory/Chest: Normal breath sounds, CTA Cardiovascular: S1, S2, No murmur Abdomen/GI:Soft, Non tender, Bowel sounds present Extremities/Musculoskelatal:normal inspection, no edema Neurologic/Psych:grossly no focal neurological deficits Skin: normal color, warm Lab data as noted below. ASSESSMENT & PLAN: Patient is 36 yr female currently being teated for Inferior,lateral STEMI due to coronary artery vasospasm in setting of uncontrolled Grave's disease Inferior, lateral STEMI/Vasospastic angina In setting of uncontrolled hyperthyroidism Several runs of NSVT S/P balloon angioplasty to the apical portion of the LAD, severe ostial vasospasm RCA Continue aspirin, clopidogrel, Cardizem, statin IV heparin discontinued after 48 hours Transaminitis likely elevated due to [place] . Appreciate cardiology help Uncontrolled Hyperthyroidism: ? Thyroid Criselda H/O Graves' disease Admits to being Non compliant to medications lately TSH: 0.005, T4:2.78, T3:7.67 >>>TSH:0.005, T4:3.34, T3:5.44>>> TSH:0.005 T4:3.31 , T3:4.89 On Methimazole, Iodine, Solumedrol, Propranolol Endocrinology consulted Continue Methimazole 20mg TID. Continue IV methylprednisone and later plan to taper to prednisone over 7 days Continue potassium iodide 250mg q6h for 5 day duration total (Day 5/5) ICU team discussed with reinforcing steel worker at [facility], Dr. Yumiko Whyte Plan to taper methimazole once TFTs improve (Methimazole to be tapered 20mg BID x 3 days, 20mg OD x 3 days, with eventual goal of 10mg OD) Monitor TFTs and LFTs Needs outpatient follow up with Endocrinology: TFT and LFT 1 week post discharge Discussed with Endocrinology Dr.Nini Waldrop today (03/07/17): Discussed in detail about patient and the recommendations from Dr. Waldrop after reviewing the chart: Stable for discharge from endocrinology standpoint Discharge on Prednisone 20mg x 3 days, 10mg for 3 days and plan to taper as outpatient Methimazole 20mg BID Propranolol LA 60mg daily No SSKI Follow up with on at 8:50AM Leukocytosis: Secondary to steroids Afebrile monitor Hypomagnesemia: Resolved Monitor Hyperlipidemia Hold Lipitor for now DVT px: SQ Lovenox Code status: full code Disposition: Plan to discharge home today Follow up with on 03/11/17 at 12:45pm Follow up with Endocrinology Dr. Hoa Waldrop on 03/13/17 at 8:50 Am Follow up with Cardiology as advised Seek immediate medical attention if your symptoms reoccur or worsen Get blood test (Thyroid function test) on 03/12/17 and follow up with your reinforcing steel worker with results. PROCEDURES: ECHO: * There is normal left ventricular wall thickness. * There is a moderate sized apical and lateral wall motion abnormality with hypokinesis of the segments. * Normal contractility to hyperdynamic contractility is noted in the remaining segments. * Left ventricular systolic function is low normal. * The LV Ejection Fraction = 50-55%. * There is mild tricuspid regurgitation. * The pulmonary artery systolic pressure is normal to borderline elevated , wt PA systolic pressure of 40 mm Hg. Vital Signs: Date Time Temp Pulse Resp B/P (MAP) Pulse Ox O2 Delivery O2 Flow Rate FiO2 03/07/17 10:54 36.7 77 18 133/82 (99) 98 03/07/17 07:44 36.6 61 18 111/74 (86) 97 Room Air 03/07/17 04:01 36.9 57 14 123/78 (93) 98 Room Air 03/07/17 04:00 Room Air 03/07/17 00:00 Room Air 03/06/17 23:42 36.7 69 20 117/72 (87) 97 Room Air 03/06/17 20:00 Room Air 03/06/17 19:33 36.9 60 20 118/66 (83) 97 Room Air 03/06/17 16:00 Room Air 03/06/17 15:29 36.7 59 21 109/71 (84) 97 Room Air Lab Results: Results Past 24 Hours Test 03/07/17 06:42 Range/Units Activated Partial Thromboplast Time 21.2 21.0-31.0 SECONDS Partial Thromboplastin Ratio 0.8 Total Bilirubin 0.4 0.2-1 mg/dl Direct Bilirubin < 0.1 0-0.2 mg/dl Aspartate Amino Transf (AST/SGOT) 19 15-37 U/L Alanine Aminotransferase (ALT/SGPT) 73 12-78 U/L Alkaline Phosphatase 84 45-117 U/L Total Protein 6.9 6.4-8.2 gm/dl Albumin 2.9 3.4-5.0 gm/dl Thyroid Stimulating Hormone (TSH) < 0.005 0.300-4.500 uIu/ml Free Thyroxine 3.11 0.80-1.60 ng/dl Free Triiodothyronine 4.89 2.30-4.20 pg/ml
--- NOTE | 2017-03-07 14:42 | Cardiology Follow-Up ---
Subjective General Date of Service: Mar 07, 2017. Chief Complaint: follow up chest pain, palpitations, SC Pt evaluation today including: conversation w/ patient, conversation w/ family , physical exam History of Present Illness The patient is a 37 year old female seen in follow up. Patient feels well. No chest pain. Telemetry reveals stable SR, and sinus arrhythmia today. Allergies Coded Allergies: No Known Allergies (Verified , 03/03/17) Social History Smoking Status: Never Smoker Hx Tobacco Use In Past Year?: No Hx Alcohol Use - Type And Amou: Yes (socially) Hx Substance Use - Type And Am: No Problem List Medical Problems: (1) Forearm contusion Status: Acute (2) STEMI (ST elevation myocardial infarction) Status: Acute Physical Exam Vital Signs Last Vital Signs Documentation Date Time Temp Pulse Resp B/P (MAP) Pulse Ox O2 Delivery O2 Flow Rate FiO2 03/07/17 10:54 36.7 77 18 133/82 (99) 98 03/07/17 07:44 Room Air 03/03/17 01:28 2.0 Physical Exam Constitutional: General Apperance: heathly-appearing Level of Distress: NAD Psychiatric: Mental Status: active & alert Orientation: to time, to place, to person Head: normocephalic, atraumatic Neck: supple, trachea midline Lungs: Auscultation: no wheezing, no rales/crackles, no rhonchi Cardiovascular: Heart Auscultation: RRR, no murmurs, no rubs, no gallops Abdomen: Inspection & Palpation: soft, non-distended, no tenderness, guarding & rebound Extremities: no edema Neurologic: Gait & Station: pertinent finding (no focal neuro deficits ) Assessment and Plan Assessment and Plan Impression: 36-year-old female Inferior, lateral ST segment elevation myocardial infarction due to coronary artery vasospasm in the setting of thyrotoxicosis -Had plain balloon angioplasty to apical portion of LAD -Several short runs of nonsustained ventricular tachycardia 03/03/17, resolved -Subjective palpitations noted prior to hospital arrival before the onset of her chest pain- resolved -Echo 03/03/17 revealed apical septal, apical, lateral wall motion abnormality , with normal to hyperdynamic function in remaining segments, with low normal LVEF -Repeat study 03/04/17, revealed resolution of the prior wall motion abnormalities, hyperdynamic LVEF >70% -Significant CPK, troponin elevation, trending down -elevated AST, ALT, likely due to SC- now normalized Recommendations: Stable for discharge from cardiac perspective on the following cardiac medications: ASA 81, clopidogrel 75 mg daily, Propranolol LA 60 mg daily, Diltiazem CD 120 mg daily, atorvastatin 10 mg daily. Follow up with me in office in 2 weeks. Needs to be off of work next week. Recommend endocrine consult as outpt within a few days of discharge. Aubrey Chase DO Laboratory Results Last 24 Hours Test 03/07/17 06:42 Activated Partial Thromboplast Time 21.2 SECONDS Partial Thromboplastin Ratio 0.8 Total Bilirubin 0.4 mg/dl Direct Bilirubin < 0.1 mg/dl Aspartate Amino Transf (AST/SGOT) 19 U/L Alanine Aminotransferase (ALT/SGPT) 73 U/L Alkaline Phosphatase 84 U/L Total Protein 6.9 gm/dl Albumin 2.9 gm/dl Thyroid Stimulating Hormone (TSH) < 0.005 uIu/ml Free Thyroxine 3.11 ng/dl Free Triiodothyronine 4.89 pg/ml
--- NOTE | 2017-03-07 14:44 | Discharge Instructions ---
Discharge Instructions Date of Service Mar 07, 2017. Admission Reason for Admission: STEMI Discharge Discharge Diagnosis / Problem: Vasospastic angina, Uncontrolled Hyperthyroidism Discharge Goals Goal(s): Decrease discomfort, Improve function Activity Recommendations Activity Limitations: per Instructions/Follow-up section Lifting Limitations: gradually increase as tolerated Exercise/Sports Limitations: gradually increase as tolerated Driving or Machine Use: Do not drive until cleared by your PCP . Instructions / Follow-Up Instructions / Follow-Up Follow up with on 03/11/17 at 12:45pm Follow up with Endocrinology Dr. Hoa Waldrop on 03/13/17 at 8:50 Am Follow up with Cardiology as advised Seek immediate medical attention if your symptoms reoccur or worsen Get blood test (Thyroid function test) on 03/12/17 and follow up with your nitro worker with results. Current Hospital Diet Patient's current hospital diet: AHA Diet (Heart Healthy) Discharge Diet Recommended Diet: AHA Diet (Heart Healthy) Pending Studies Studies pending at discharge: no Laboratory Results Hemoglobin A1c Test 03/03/17 00:48 Range/Units Estimated Average Glucose 105 mg/dl Hemoglobin A1c 5.3 4.5-5.6 % Lipid Panel Test 03/03/17 00:48 Range/Units Triglycerides Level 189 H 0-150 mg/dl Cholesterol Level 189 0-200 mg/dl HDL Cholesterol 43 mg/dl LDL Cholesterol Direct 119 mg/dl Cholesterol/HDL Ratio 4.4 LDL Cholesterol, Calculated mg/dl Work Instructions Additional Instructions: Can return to work after 10 days or after following with Primary Care physician if cleared for work Medical Emergencies . Who to Call and When: Medical Emergencies: If at any time you feel your situation is an emergency, please call 911 immediately. . Non-Emergent Contact Non-Emergency issues call your: Primary Care Provider, Jeweler Apprentice, Specialist (Motor Bus Driver) Call Non-Emergent contact if: you have a fever, your pain is not controlled, your pain is worsening, your pain is unusual for you, you have any medication questions Seek immediate medical attention if your symptoms reoccur or worsen . . "Provider Documentation" section prepared by Sanjay Cline. . VTE Core Measure Inpt VTE Proph given/why not?: Enoxaparin (Lovenox)SQ
[2017-03-07] MEDS ORDERED: ATORVASTATIN 10 MG TAB PO ONE (14:45)
[2017-03-07] MEDS ORDERED: INDSR60 PO ×2 (14:52)
[2017-03-07] MEDS ORDERED: PLV75 PO ×2 (14:52)
[2017-03-07] MEDS ORDERED: TPZ5 PO ×2 (14:52)
[2017-03-07] MEDS ORDERED: CRDCD120 PO ×2 (14:52)
[2017-03-07] MEDS ORDERED: ASPEC81 PO ×2 (14:52)
[2017-03-07] MEDS ORDERED: PRED10TA PO ×2 (14:52)
[2017-03-07] MEDS ORDERED: LPT10 PO ×2 (14:52)
--- NOTE | 2017-03-07 14:52 | Discharge Summary ---
Discharge Summary Date of Service Mar 07, 2017. Discharge Summary Admission Date: Mar 03, 2017 at 03:18 Discharge Date: Mar 07, 2017 Discharge Disposition: Home Principal Diagnosis: Vasospastic angina, Uncontrolled Hyperthyroidism Procedures: CTA: 1. Negative thoracic aorta. 2. No evidence of pulmonary embolus. 3. Groundglass nodular changes bilaterally with slight interstitial prominence. An atypical inflammatory process is considered. ECHO: * There is normal left ventricular wall thickness. * There is a moderate sized apical and lateral wall motion abnormality with hypokinesis of the segments. * Normal contractility to hyperdynamic contractility is noted in the remaining segments. * Left ventricular systolic function is low normal. * The LV Ejection Fraction = 50-55%. * There is mild tricuspid regurgitation. * The pulmonary artery systolic pressure is normal to borderline elevated , wtih PA systolic pressure of 40 mm Hg. Consultations: Cardiology, Endocrinology, Care Transitions Manager Pending Studies/Follow-Up: Follow up with on 03/11/17 at 12:45pm Follow up with Endocrinology Dr. Hoa Waldrop on 03/13/17 at 8:50 Am Follow up with Cardiology as advised Seek immediate medical attention if your symptoms reoccur or worsen Get blood test (Thyroid function test) on 03/12/17 and follow up with your services delivery driver with results. Medication Reconciliation New Medications: Prednisone Tab (Prednisone) 10 Mg Tab 10 MG PO UD for 6 Days, #9 TAB Start taking 20mg for 3 days, then 10 mg for three days. Follow up with your services delivery driver for further dosing Aspirin (Aspirin EC Low Dose) 81 Mg Ectab 81 MG PO QAM for 30 Days, #30 TAB 1 Refill Atorvastatin (Atorvastatin Calcium) 10 Mg Tab 10 MG PO QAM for 30 Days, #30 TAB 1 Refill Clopidogrel Bisulfate (Clopidogrel) 75 Mg Tab 75 MG PO QAM for 30 Days, #30 TAB 1 Refill Diltiazem HCl (Diltiazem Cd) 120 Mg Capcr 120 MG PO QAM for 30 Days, #30 CAP 1 Refill Methimazole (Methimazole) 5 Mg Tab 20 MG PO BID for 30 Days, #240 TAB Propranolol HCl (Propranolol HCl ER) 60 Mg Cap 60 MG PO QAM for 30 Days, #30 CAP 1 Refill Discontinued Medications: Methimazole (Methimazole ) 5 Mg Tab 5 MG PO DAILY Admission Information HPI (per Admitting provider): CHIEF COMPLAINT: Woke up from sleep with severe chest pain. HISTORY OF PRESENT COMPLAINT: She is a 36-year-old female with significant past medical history of hyperthyroidism, apparently woke up from sleep with terrible chest pain associated with nausea, sweating, apprehension, and the pain radiated to left arm. Her called 911 and she was brought into the Emergency Room. EKG did show acute ST elevation NH involving the inferolateral part of the heart. She went to the analytical laboratory technician and she was noted to have blockage in LAD and that was dilated with balloon angioplasty, and following that she was admitted to ICU for continuation of care. She denies to any chest pain before or any symptoms of heart disease before. She does have borderline high cholesterol but she has not been taking any medications for that. She has been on methimazole for hyperthyroidism, which she takes occasionally when she feels palpitation. She does not have any significant family history of heart disease. Physical Exam (per Admitting): PHYSICAL EXAMINATION: GENERAL: In the ICU, following cardiac cath, she complains of some back pain and she is very anxious, and her chest pain seems to be resolved with nitro. She has had chest pain following cardiac cath in the ICU as well. VITAL SIGNS: Temperature 36.6, pulse 79, blood pressure 123/85, saturation 99%. HEENT: Unremarkable. NECK: Supple. No JVD, no bruit. CHEST: Clear to auscultate bilaterally. HEART: S1, S2 regular, no murmur. ABDOMEN: Soft, benign, nontender, no organomegaly. Bowel sounds present. EXTREMITIES: Negative for any edema. MUSCULOSKELETAL: Did not show any acute arthritis involving any joint. CENTRAL NERVOUS SYSTEM: She is alert, awake, oriented x3. No focal sensory and/or motor deficit appreciated. Hospital Course Patient is 36 yr female currently being teated for Inferior,lateral STEMI due to coronary artery vasospasm in setting of uncontrolled Grave's disease Inferior, lateral STEMI/Vasospastic angina In setting of uncontrolled hyperthyroidism Several runs of NSVT S/P balloon angioplasty to the apical portion of the LAD, severe ostial vasospasm RCA Continue aspirin, clopidogrel, Cardizem, statin IV heparin discontinued after 48 hours Transaminitis likely elevated due to NH . Appreciate cardiology help Uncontrolled Hyperthyroidism: ? Thyroid Criselda H/O Graves' disease Admits to being Non compliant to medications lately TSH: 0.005, T4:2.78, T3:7.67 >>>TSH:0.005, T4:3.34, T3:5.44>>> TSH:0.005 T4:3.31 , T3:4.89 On Methimazole, Iodine, Solumedrol, Propranolol Endocrinology consulted Continue Methimazole 20mg TID. Continue IV methylprednisone and later plan to taper to prednisone over 7 days Continue potassium iodide 250mg q6h for 5 day duration total (Day 5/5) ICU team discussed with services delivery driver at [facility], Dr. Yumiko Whyte Plan to taper methimazole once TFTs improve (Methimazole to be tapered 20mg BID x 3 days, 20mg OD x 3 days, with eventual goal of 10mg OD) Monitor TFTs and LFTs Needs outpatient follow up with Endocrinology: TFT and LFT 1 week post discharge Discussed with Endocrinology Dr.Nini Waldrop today (03/07/17): Discussed in detail about patient and the recommendations from Dr. Waldrop after reviewing the chart: Stable for discharge from endocrinology standpoint Discharge on Prednisone 20mg x 3 days, 10mg for 3 days and plan to taper as outpatient Methimazole 20mg BID Propranolol LA 60mg daily No SSKI Follow up with on at 8:50AM Leukocytosis: Secondary to steroids Afebrile monitor Hypomagnesemia: Resolved Monitor Hyperlipidemia Hold Lipitor for now DVT px: SQ Lovenox Code status: full code Disposition: Plan to discharge home today Follow up with on 03/11/17 at 12:45pm Follow up with Endocrinology Dr. Hoa Waldrop on 03/13/17 at 8:50 Am Follow up with Cardiology as advised Seek immediate medical attention if your symptoms reoccur or worsen Get blood test (Thyroid function test) on 03/12/17 and follow up with your services delivery driver with results. PROCEDURES: ECHO: * There is normal left ventricular wall thickness. * There is a moderate sized apical and lateral wall motion abnormality with hypokinesis of the segments. * Normal contractility to hyperdynamic contractility is noted in the remaining segments. * Left ventricular systolic function is low normal. * The LV Ejection Fraction = 50-55%. * There is mild tricuspid regurgitation. * The pulmonary artery systolic pressure is normal to borderline elevated , wt PA systolic pressure of 40 mm Hg. Total time spent on discharge = 40 minutes This includes examination of the patient, discharge planning, medication reconciliation, and communication with other providers. Discharge Instructions Discharge Instructions Date of Service Mar 07, 2017. Admission Reason for Admission: STEMI Discharge Discharge Diagnosis / Problem: Vasospastic angina, Uncontrolled Hyperthyroidism Discharge Goals Goal(s): Decrease discomfort, Improve function Activity Recommendations Activity Limitations: per Instructions/Follow-up section Lifting Limitations: gradually increase as tolerated Exercise/Sports Limitations: gradually increase as tolerated Driving or Machine Use: Do not drive until cleared by your PCP . Instructions / Follow-Up Instructions / Follow-Up Follow up with on 03/11/17 at 12:45pm Follow up with Endocrinology Dr. Hoa Waldrop on 03/13/17 at 8:50 Am Follow up with Cardiology as advised Seek immediate medical attention if your symptoms reoccur or worsen Get blood test (Thyroid function test) on 03/12/17 and follow up with your services delivery driver with results. Current Hospital Diet Patient's current hospital diet: AHA Diet (Heart Healthy) Discharge Diet Recommended Diet: AHA Diet (Heart Healthy) Pending Studies Studies pending at discharge: no Laboratory Results Hemoglobin A1c Test 03/03/17 00:48 Range/Units Estimated Average Glucose 105 mg/dl Hemoglobin A1c 5.3 4.5-5.6 % Lipid Panel Test 03/03/17 00:48 Range/Units Triglycerides Level 189 H 0-150 mg/dl Cholesterol Level 189 0-200 mg/dl HDL Cholesterol 43 mg/dl LDL Cholesterol Direct 119 mg/dl Cholesterol/HDL Ratio 4.4 LDL Cholesterol, Calculated mg/dl Work Instructions Additional Instructions: Can return to work after 10 days or after following with Primary Care physician if cleared for work Medical Emergencies . Who to Call and When: Medical Emergencies: If at any time you feel your situation is an emergency, please call 911 immediately. . Non-Emergent Contact Non-Emergency issues call your: Primary Care Provider, Installation And Service Technician, Specialist (Dipper Machine Operator) Call Non-Emergent contact if: you have a fever, your pain is not controlled, your pain is worsening, your pain is unusual for you, you have any medication questions Seek immediate medical attention if your symptoms reoccur or worsen . . "Provider Documentation" section prepared by Sanjay Cline. . VTE Core Measure Inpt VTE Proph given/why not?: Enoxaparin (Lovenox)SQ
[2017-03-07 15:36] VITALS: BP 133/82; PULSE 77; TEMP 36.7; O2SAT 98
[2017-03-08] MEDS ORDERED: ATORVASTATIN 10 MG TAB PO SCH (09:00)
[2017-03-08] MEDS ORDERED: METHYLPREDNISOLONE 20 MG in SYRINGE 0 ML IV SCH (09:00)
[2017-04-07] MEDS ORDERED: PRENTAB26 PO (15:55)
[2017-04-07] MEDS ORDERED: CMD/25 PO (15:55)
== END 2017-03-07 15:45 | disposition home or self-care (01) | DRG 250 ==
LOC: C.EDB 01:19 → C.MSICU 03:18 → ENRESERV 03-05 11:28 → C.2T 03-05 12:54
PROVIDERS: ADMIT Internal Medicine; ATTEND Internal Medicine
PROC: B2151ZZ Fluoroscopy of Left Heart using Low Osmolar Contrast (ICD-10-PCS; principal; 2017-03-03 03:04)
PROC: 4A023N7 Measurement of Cardiac Sampling and Pressure, Left Heart, Percutaneous Approach (ICD-10-PCS; principal; 2017-03-03 03:04)
PROC: B2111ZZ Fluoroscopy of Multiple Coronary Arteries using Low Osmolar Contrast (ICD-10-PCS; principal; 2017-03-03 03:04)
PROC: 02703ZZ Dilation of Coronary Artery, One Artery, Percutaneous Approach (ICD-10-PCS; principal; 2017-03-03 03:04)
DX: I21.19 ST elevation (STEMI) myocardial infarction involving other coronary artery of inferior wall (principal); E05.91 Thyrotoxicosis, unspecified with thyrotoxic crisis or storm; I47.2 Ventricular tachycardia; I43 Cardiomyopathy in diseases classified elsewhere; I25.111 Atherosclerotic heart disease of native coronary artery with angina pectoris with documented spasm; E78.5 Hyperlipidemia, unspecified; E83.42 Hypomagnesemia; Z91.14 Patient's other noncompliance with medication regimen

== ENCOUNTER 2017-03-08 21:40 | Inpatient (IN) | payer BC ==
[~2017-03-08] VITALS: Ht 162.6 cm; Wt 77.9 kg
[~2017-03-08 21:40] MED LIST changes: +ASPEC81 PO; +CRDCD120 PO; +INDSR60 PO; +LPT10 PO; +PLV75 PO; +PRED10TA PO; +TPZ5 PO
[2017-03-08] MEDS ORDERED: LORAZEPAM 2 MG/ML 1 ML VIAL IV STA (22:39)
--- NOTE | 2017-03-08 23:11 | EMERGENCY ROOM VISIT NOTE ---
History Report prepared by Riki: Benito Galeana Under the Supervision of: Dr. Caesar Shipman M.D. First contact with patient: 22:34 Chief Complaint: CARDIAC ASSESSMENT Stated Complaint: THYROID Nursing Triage Summary: pt birdie developed a " flutter in chest today " states " i recently had an MO RT thyroid storm"pt staes I just do not know what may be anxiety and what may be heart related , denies increased sob or cp History of Present Illness The patient is a 37 year old female who presents to the Emergency Room with complaints of constant chest fluttering beginning this morning. The patient states that she was discharged from the hospital yesterday. She reports that since then, she has been feeling chest fluttering that she thought was her anxiety. The patient notes that she is not on anxiety medication. She states that she was discharged on prednisone, and she is aware of the side effects. The patient reports that she is just scared everything is going to happen again. She notes that she did not have chest pain today. The patient states that she was going to the restroom, and she felt hot and fluttering in her chest and abdomen. She reports that she is also worried about her thyroid level because it was elevated yesterday. The patient notes that she is back on her thyroid medications. Source of History: patient Onset: this morning Position: chest Quality: other (fluttering) Timing: constant Associated Symptoms: + abdominal pain (fluttering) Note: Associated symptoms: hot feeling Review of Systems See HPI for pertinent positives & negatives. A total of 10 systems reviewed and were otherwise negative. Past Medical & Surgical Medical Problems: (1) Abdominal pain (2) Acute cholecystitis (3) Leukocytosis (4) Sludge in gallbladder Surgical Problems: (1) Hx laparoscopic cholecystectomy (2) S/P appendectomy Family History FH: cancer FH: gallbladder disease FH: heart disease Hypertension Social History Smoking Status: Never Smoker Alcohol Use: none Drug Use: none Marital Status: Housing Status: lives with family Occupation Status: employed Current/Historical Medications Scheduled Aspirin (Aspirin EC Low Dose), 81 MG PO QAM Atorvastatin (Atorvastatin Calcium), 10 MG PO QAM Clopidogrel Bisulfate (Clopidogrel), 75 MG PO QAM Diltiazem HCl (Diltiazem Cd), 120 MG PO QAM Methimazole (Methimazole), 20 MG PO BID Prednisone Tab (Prednisone), 10 MG PO UD Propranolol HCl (Propranolol HCl ER), 60 MG PO QAM Allergies Coded Allergies: No Known Allergies (Verified , 03/08/17) Physical Exam Vital Signs Date Time Temp Pulse Resp B/P (MAP) Pulse Ox O2 Delivery O2 Flow Rate FiO2 03/08/17 23:50 77 18 120/61 97 Room Air 03/08/17 22:20 52 03/08/17 21:50 36.6 74 18 106/70 96 Room Air Physical Exam GENERAL: Patient is in no acute distress. Anxious and tearful. HEENT: No acute trauma, normocephalic atraumatic, mucous membranes moist, no nasal congestion, no scleral icterus. NECK: No stridor, no adenopathy, no meningismus, trachea is midline. LUNGS: Clear to auscultation bilaterally, no wheeze, no rhonchi, breath sounds equal. HEART: Without murmurs gallops or rubs, regular rate and rhythm. ABDOMEN: Soft, nontender, bowel sounds positive, no hernias, no peritonitis. EXTREMITIES: No cyanosis or edema, full range of motion of all the joints without pain or difficulty, no signs for acute trauma. NEUROLOGIC: Oriented x 3, no acute motor or sensory deficits, no focal weakness. SKIN: No rash, no jaundice, no diaphoresis. Medical Decision & Procedures ER Provider Diagnostic Interpretation: X-ray results as stated below per interpretation by me and the radiologist: SINGLE VIEW CHEST CLINICAL HISTORY: Atypical chest pain. FINDINGS: An AP, portable, upright chest radiograph is compared to chest x-ray and chest CT dated 03/03/2017. The examination is mildly degraded by portable technique and patient rotation. The cardiomediastinal silhouette is unremarkable. The lungs and pleural spaces are clear. No pneumothorax is seen. The bony thorax is grossly intact. Cholecystectomy clips are seen in the right upper quadrant. IMPRESSION: No active disease in the chest and no significant change from recent prior studies. Electronically signed by: Caesar Hernandez M.D. 03/08/2017 11:34 PM Dictated Date/Time: 03/08/2017 11:34 PM Laboratory Results 03/08/17 22:10 03/08/17 22:10 Test 03/08/17 22:10 03/09/17 00:27 Red Blood Count 4.70 M/uL (4.2-5.4) Mean Corpuscular Volume 87.2 fL (80-100) Mean Corpuscular Hemoglobin 31.5 pg (25-34) Mean Corpuscular Hemoglobin Concent 36.1 g/dl (32-36) RDW Standard Deviation 38.2 fL (36.4-46.3) RDW Coefficient of Variation 11.9 % (11.5-14.5) Mean Platelet Volume 9.4 fL (7.4-10.4) Anion Gap 6.0 mmol/L (3-11) Est Creatinine Clear Calc Drug Dose 121.4 ml/min Estimated GFR () 132.4 Estimated GFR (Non- 114.2 BUN/Creatinine Ratio 24.9 (10-20) Calcium Level 8.1 mg/dl (8.5-10.1) Total Bilirubin 0.3 mg/dl (0.2-1) Aspartate Amino Transf (AST/SGOT) 54 U/L (15-37) Alanine Aminotransferase (ALT/SGPT) 176 U/L (12-78) Alkaline Phosphatase 102 U/L (45-117) Total Creatine Kinase 30 U/L (26-192) Creatine Kinase MB < 0.5 ng/ml (0.5-3.6) Creatine Kinase MB Ratio (0-3.0) Total Protein 6.6 gm/dl (6.4-8.2) Albumin 2.6 gm/dl (3.4-5.0) Globulin 4.0 gm/dl (2.5-4.0) Albumin/Globulin Ratio 0.7 (0.9-2) Thyroid Stimulating Hormone (TSH) < 0.005 uIu/ml (0.300-4.500) Free Thyroxine 2.90 ng/dl (0.80-1.60) Free Triiodothyronine 4.90 pg/ml (2.30-4.20) Laboratory results reviewed by me. Medications Administered Medications (Trade) Dose Ordered Sig/Charito Route Start Time Stop Time Status Last Admin Dose Admin Lorazepam (Ativan Inj) 0.5 mg NOW STAT IV 03/08/17 22:39 03/08/17 22:43 DC 03/08/17 22:52 0.5 MG ECG Indication: other (chest fluttering) Rate (beats per minute): 56 Rhythm: sinus bradycardia (with SA) Findings: other (Biphasic T-waves laterally, possible old inferior infarct, no acute MO) Comparison ECG Date: 03/06/17 Change: Biphasic T-waves are more prominent ED Course 2235: The patient was evaluated in room C08. A complete history and physical exam was performed. 2238: Ordered Ativan Inj 0.5mg IV 0007: I discussed the patient's case with Dr. Swift [facility] Cardiology. He suggested the patient should be watched the rest of the night to be safe. 0013: Upon reexamination the patient is resting. I discussed results and treatment plan with the patient. She verbalizes agreement and understanding. 0017: I discussed the patient's case with Dr. Weston, [facility] Hospitalist. The patient will be evaluated for further management. Medical Decision The patient is a 37 year old female who presents to the ED with complaints of chest fluttering. Differential diagnoses considered include electrolyte imbalance, anemia, recurrent MO, anxiety, palpitations, hyperthyroidism, medication reaction. There is a significant leukocytosis at 19,000, this though is where she has been running as of late, likely from her steroid use. No worrisome anemia. No significant electrolyte abnormality or kidney failure. There were subtle liver enzyme elevations. Thyroid testing shows evidence for some hyperthyroidism, her numbers look about baseline compared to previous testing. EKG shows a sinus bradycardia, no acute MO noted. There were changes laterally consistent with a very recent MO. The EKG was slightly different when compared to the EKG from her recent hospitalization. Cardiac troponin is elevated but less than it was when she was just in the hospital-things do seem to be improving. Chest film does not show pneumonia, mediastinal widening or pneumothorax. The patient received IV Ativan for anxiety, this seemed to help. 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 She does not currently have chest pain. I spoke to the on-call maid cleaning cooking. The patient is being brought into the hospital for monitoring. She will require further cardiac enzyme testing as well. I discussed the case with case management. I talked to the on-call hospitalist. The patient's symptoms may all just be from her steroid use and the fact that she is recovering from an MO. Since she just left the hospital and returns with cardiac symptoms, a hospital stay and further monitoring was felt warranted. Consults Time Called: 4 Consulting Physician: Ileana Neri Cardiology Returned Call: 000 I discussed the patient's case with Ileana Neri Cardiology. He suggested the patient should be watched the rest of the night to be safe. Additional Consults: Time Called: 10 Consulted Physician: Ileana Lynn Hospitalist Returned Call: 16 Additional Comments: I discussed the patient's case with Ileana Lynn Hospitalist. The patient will be evaluated for further management. Impression Primary Impression: Palpitations Additional Impression: Recent myocardial infarction Scribe Attestation The scribe's documentation has been prepared under my direction and personally reviewed by me in its entirety. I confirm that the note above accurately reflects all work, treatment, procedures, and medical decision making performed by me. Departure Information Dispostion Being Evaluated By Hospitalist Referrals Sonia Robertson D.O. (PCP) Patient Instructions My [facility] Problem Qualifiers
[2017-03-08 23:12] LABS: MEAN CELL VOLUME 87.2 fL (80-100); MEAN CORPUSCULAR HEMOGLOBIN 31.5 pg (25-34); MEAN CORPUSCULAR HGB CONC 36.1 g/dl (32-36); MEAN PLATELET VOLUME 9.4 fL (7.4-10.4); PLATELET COUNT 340 K/uL (130-400); WHITE BLOOD COUNT 19.02 K/uL (4.8-10.8)
--- NOTE | 2017-03-08 23:36 | DIAGNOSTIC IMAGING REPORT ---
SINGLE VIEW CHEST CLINICAL HISTORY: Atypical chest pain. FINDINGS: An AP, portable, upright chest radiograph is compared to chest x-ray and chest CT dated 03/03/2017. The examination is mildly degraded by portable technique and patient rotation. The cardiomediastinal silhouette is unremarkable. The lungs and pleural spaces are clear. No pneumothorax is seen. The bony thorax is grossly intact. Cholecystectomy clips are seen in the right upper quadrant. IMPRESSION: No active disease in the chest and no significant change from recent prior studies. Electronically signed by: Caesar Hernandez M.D. 03/08/2017 11:34 PM Dictated Date/Time: 03/08/2017 11:34 PM
[2017-03-08 23:39] LABS: ALB/GLOB RATIO 0.7 (0.9-2); ALT/SGPT 176 U/L (12-78); AST/SGOT 54 U/L (15-37); BLOOD UREA NITROGEN 16 mg/dl (7-18); BUN/CREATININE RATIO 24.9 (10-20); CALCIUM 8.1 mg/dl (8.5-10.1); CARBON DIOXIDE 25 mmol/L (21-32); CHLORIDE 105 mmol/L (98-107); CREATININE 0.65 mg/dl (0.60-1.20); GLUCOSE 118 mg/dl (70-99); POTASSIUM 3.9 mmol/L (3.5-5.1); SODIUM 136 mmol/L (136-145)
[2017-03-08 23:55] LABS: ALKALINE PHOSPHATASE 102 U/L (45-117); THYROID STIMULATING HORMONE < 0.005 uIu/ml (0.300-4.500)
[2017-03-09] MEDS ORDERED: POTASSIUM CHLORIDE 10 MEQ TABCR PO STA (00:24)
[2017-03-09 00:56] LABS: PARTIAL THROMBOPLASTIN RATIO 0.9
[2017-03-09] MEDS ORDERED: TRAMADOL HCL 50 MG TAB PO PRN (01:00)
[2017-03-09] MEDS ORDERED: ACETAMINOPHEN 325 MG TAB PO PRN (01:00)
[2017-03-09] MEDS ORDERED: NITROGLYCERIN 0.4 MG SL PER TAB CHARGE SL PRN (01:00)
[2017-03-09] MEDS ORDERED: ONDANSETRON INJ 2 MG/ML 2 ML VIAL IV PRN (01:00)
[2017-03-09] MEDS ORDERED: LORAZEPAM 2 MG/ML 1 ML VIAL IV PRN (01:00)
[2017-03-09] MEDS ORDERED: MoRPHine SULFATE 4 MG/ML 1 ML CARP\\VIAL IV PRN (01:00)
[2017-03-09] MEDS ORDERED: LORAZEPAM INJ 0.5 MG in SYRINGE 0.75 ML IV PRN (01:30)
[2017-03-09] MEDS ORDERED: IV FLUIDS COMPLETED PRN (01:45)
[2017-03-09 01:46] VITALS: BP 104/56; TEMP 36.6; O2SAT 97; Ht 162.6 cm; Wt 77.9 kg
[2017-03-09] MEDS ORDERED: NSS + 20MEQ KCL 1000ML 1,000 ML IV ONE (02:00)
[2017-03-09] MEDS ORDERED: LORAZEPAM 0.5 MG TAB PO PRN (02:30)
[2017-03-09 04:00] VITALS: BP 101/54; PULSE 56; TEMP 36.6; O2SAT 97
--- NOTE | 2017-03-09 05:01 | HISTORY & PHYSICAL EXAMINATION ---
DATE OF ADMISSION: 03/09/2017 PATIENT'S PRIMARY CARE DOCTOR: Dr. Robertson CHIEF COMPLAINT: Chest fluttering. HISTORY OF PRESENT ILLNESS: History obtained from patient and records. Medical history is significant for history of hyperthyroidism, history of HI 2 to vasospastic angina. Recent confinement was a few days ago for inferolateral ST elevation myocardial infarction secondary to vasospastic angina secondary to uncontrolled Graves' disease. Patient underwent balloon angioplasty to apical portion of LAD. A 2D echo at that time during confinement showed EF of 70%, normal LV wall thickness and hyperdynamic LV. Discharged 2 days ago. Patient compliant with cardiac medications. Patient was discharged on Methimazole, steroid course for hyperthyroidism as per Endocrinology recommendations. Outpx Endocrinology appointment slated for next week. Patient to follow-up with assistant associate full professor in 2 weeks. Last night, the patient noted left-sided chest fluttering, no shortness of breath. Different from chest pain which brought her to the hospital a few days ago. Currently comfortable after receiving Ativan in the ER. MEDICAL HISTORY: As above. SURGERIES: Appendectomy and cholecystectomy. HOME MEDICATIONS: Include; aspirin, atorvastatin, Plavix, diltiazem, methimazole, prednisone and propranolol. ALLERGIES: No known drug allergies. FAMILY HISTORY: Heart disease. PERSONAL AND SOCIAL HISTORY: Nonsmoker. No chronic intake of alcoholic beverages. 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 REVIEW OF SYSTEMS: As per HPI. all other ROS negative. PHYSICAL EXAMINATION: VITAL SIGNS: Blood pressure was noted to be 106/70, pulse rate 70 RR 18, temp 36.6 and sats 96 on room air. GENERAL: Noted to be slightly anxious, no respiratory distress. SKIN: Normal color. HEENT: Paradis palpebral conjunctivae. Dry mucosa. NECK: No JVD. supple CHEST: Clear to auscultation. HEART: Regular rate and rhythm. ABDOMEN: Soft. EXTREMITIES: No edema. No tenderness NEUROLOGIC: No gross focality. LABORATORIES: Hemoglobin was noted to be 14.8, hematocrit 40, white cell count 19 and platelets 240. Sodium 136.9, chloride 105, CO2 25, BUN 16, creatinine 0.6 and glucose of 118. Troponin was noted to be 2.2 from 11.8 (03/05 ) AST 54, ALT 176. TSH 0.005. Free T4 2.9. Free T3 4.9. Chest x-ray no active disease EKG as per my interpretation rate of 55, sinus bradycardia, J-point elevation inferolateral leads, T-wave inversion lateral leads. ASSESSMENT: 1. Chest fluttering possibly from anxiety recent history of ST elevation myocardial infarction secondary to coronary vasospasm status post angioplasty troponin is significantly lower from last draw from a few days ago 2. Persistently abnormal liver function tests/transaminitis attributed to myocardial infarction as per Cardiology note from recent confinement Rule out fatty liver 3. hyperthyroidism on methimazole and steroid Rx Patient to see [facility] Endocrinology in the office next week. PLAN: Observation. PCU Anxiolytic when necessary Follow cardiac markers. Cardiology consult RE chest discomfort, abnormal troponin (ER provider already in touch with Dr. Swift.) Follow LFTs. Liver ultrasound. Hold statin for now. DVT prophylaxis, Lovenox subQ. Full code. MTDD
[2017-03-09 05:45] LABS: BASO % 0.2 %; BASO ABS # 0.03 K/uL (0-0.2); COMPLETE YES; EOS % 0.9 %; HEMATOCRIT 39.4 % (37-47); LYMPH % 22.3 %; LYMPH ABS # 4.27 K/uL (1.2-3.4); MEAN CELL VOLUME 88.1 fL (80-100); MEAN CORPUSCULAR HEMOGLOBIN 29.3 pg (25-34); MEAN CORPUSCULAR HGB CONC 33.2 g/dl (32-36); MEAN PLATELET VOLUME 9.1 fL (7.4-10.4); MONO % 12.3 %; NEUT % 61.3 %; PLATELET COUNT 286 K/uL (130-400); RED BLOOD COUNT 4.47 M/uL (4.2-5.4); WHITE BLOOD COUNT 19.16 K/uL (4.8-10.8)
[2017-03-09 06:03] LABS: PARTIAL THROMBOPLASTIN RATIO 0.8; PROTHROMBIN TIME (PATIENT) 10.7 SECONDS (9.0-12.0)
[2017-03-09 06:32] LABS: BUN/CREATININE RATIO 23.8 (10-20); CALCIUM 7.9 mg/dl (8.5-10.1); CREATININE 0.61 mg/dl (0.60-1.20); POTASSIUM 4.1 mmol/L (3.5-5.1)
[2017-03-09 06:40] LABS: ALB/GLOB RATIO 0.7 (0.9-2)
[2017-03-09] MEDS ORDERED: HEPARIN IV LOW DOSE NO BOLUS SCH (06:47)
--- NOTE | 2017-03-09 06:50 | Progress Note ---
Internal Med Progress Note Date of Service: Mar 09, 2017. Provider Documentation: Troponins noted to be progressing upward. 2.27 -> 2.88 -> 3.57 Patient currently asymptomatic. AP poss ACS Continue antiplatelets, beta jarad/calcium channel jarad Add low-dose IV heparin to regimen for now. TTE RE troponin elevation Will relay to AM provider. Vital Signs: Date Time Temp Pulse Resp B/P (MAP) Pulse Ox O2 Delivery O2 Flow Rate FiO2 03/09/17 04:00 Room Air 03/09/17 04:00 36.6 56 18 101/54 (70) 97 Room Air 03/09/17 01:46 36.6 18 104/56 97 Room Air 03/09/17 01:14 64 18 109/54 98 03/08/17 23:50 77 18 120/61 97 Room Air 03/08/17 22:20 52 03/08/17 21:50 36.6 74 18 106/70 96 Room Air Lab Results: Results Past 24 Hours Test 03/08/17 22:10 03/09/17 01:54 03/09/17 05:21 Range/Units White Blood Count 19.02 19.16 4.8-10.8 K/uL Red Blood Count 4.70 4.47 4.2-5.4 M/uL Hemoglobin 14.8 13.1 12.0-16.0 g/dL Hematocrit 41.0 39.4 37-47 % Mean Corpuscular Volume 87.2 88.1 80-100 fL Mean Corpuscular Hemoglobin 31.5 29.3 25-34 pg Mean Corpuscular Hemoglobin Concent 36.1 33.2 32-36 g/dl RDW Standard Deviation 38.2 38.5 36.4-46.3 fL RDW Coefficient of Variation 11.9 12.0 11.5-14.5 % Platelet Count 340 286 130-400 K/uL Mean Platelet Volume 9.4 9.1 7.4-10.4 fL Activated Partial Thromboplast Time 22.3 20.3 21.0-31.0 SECONDS Partial Thromboplastin Ratio 0.9 0.8 Sodium Level 136 138 136-145 mmol/L Potassium Level 3.9 4.1 3.5-5.1 mmol/L Chloride Level 105 108 98-107 mmol/L Carbon Dioxide Level 25 26 21-32 mmol/L Anion Gap 6.0 4.0 3-11 mmol/L Blood Urea Nitrogen 16 15 7-18 mg/dl Creatinine 0.65 0.61 0.60-1.20 mg/dl Est Creatinine Clear Calc Drug Dose 121.4 128.8 ml/min Estimated GFR () 132.4 135.2 Estimated GFR (Non- 114.2 116.6 BUN/Creatinine Ratio 24.9 23.8 10-20 Random Glucose 118 84 70-99 mg/dl Calcium Level 8.1 7.9 8.5-10.1 mg/dl Magnesium Level 2.0 1.8-2.4 mg/dl Total Bilirubin 0.3 0.5 0.2-1 mg/dl Aspartate Amino Transf (AST/SGOT) 54 31 15-37 U/L Alanine Aminotransferase (ALT/SGPT) 176 140 12-78 U/L Alkaline Phosphatase 102 80 45-117 U/L Total Creatine Kinase 30 26-192 U/L Creatine Kinase MB < 0.5 0.5-3.6 ng/ml Creatine Kinase MB Ratio 0-3.0 Troponin I 2.270 2.880 3.590 0-0.045 ng/ml Total Protein 6.6 6.0 6.4-8.2 gm/dl Albumin 2.6 2.4 3.4-5.0 gm/dl Globulin 4.0 3.6 2.5-4.0 gm/dl Albumin/Globulin Ratio 0.7 0.7 0.9-2 Thyroid Stimulating Hormone (TSH) < 0.005 0.300-4.500 uIu/ml Free Thyroxine 2.90 0.80-1.60 ng/dl Free Triiodothyronine 4.90 2.30-4.20 pg/ml Neutrophils (%) (Auto) 61.3 % Lymphocytes (%) (Auto) 22.3 % Monocytes (%) (Auto) 12.3 % Eosinophils (%) (Auto) 0.9 % Basophils (%) (Auto) 0.2 % Neutrophils # (Auto) 11.75 1.4-6.5 K/uL Lymphocytes # (Auto) 4.27 1.2-3.4 K/uL Monocytes # (Auto) 2.35 0.11-0.59 K/uL Eosinophils # (Auto) 0.18 0-0.5 K/uL Basophils # (Auto) 0.03 0-0.2 K/uL Immature Granulocyte % (Auto) 3.0 % Immature Granulocyte # (Auto) 0.58 0.00-0.02 K/uL Prothrombin Time 10.7 9.0-12.0 SECONDS Prothromb Time International Ratio 1.0 0.9-1.1
[2017-03-09 07:10] VITALS: BP 109/57; PULSE 71; TEMP 36.8; O2SAT 97
--- NOTE | 2017-03-09 07:57 | DIAGNOSTIC IMAGING REPORT ---
ULTRASOUND RIGHT UPPER QUADRANT ABDOMEN CLINICAL HISTORY: Elevated hepatic transaminases. COMPARISON STUDY: Abdominal CT dated 06/19/2013. TECHNIQUE: Real-time, grayscale, and color flow sonography of the right upper quadrant of the abdomen was performed. Images are reviewed in the transverse and longitudinal planes. FINDINGS: Liver: The liver is normal in size and echotexture, measuring 14.7 cm in length. There is no intrahepatic biliary ductal dilatation. The main portal vein is patent. Gallbladder: The gallbladder is surgically absent. The common bile duct measures up to 0.4 cm in diameter. Pancreas: Visualized portions of the pancreatic head and body are normal in appearance. The splenic vein is patent. Right kidney: Survey images of the right kidney demonstrate normal size and echotexture. There is no hydronephrosis. Ascites: None. IMPRESSION: 1. Unremarkable sonographic assessment of the liver. 2. Status post cholecystectomy. Electronically signed by: Caesar Hernandez M.D. 03/09/2017 7:56 AM Dictated Date/Time: 03/09/2017 7:55 AM
--- NOTE | 2017-03-09 08:05 | Progress Note ---
Internal Med Progress Note Date of Service: Mar 09, 2017. Provider Documentation: SUBJECTIVE: Seen and examined at bedside. Little anxious during the encounter Denies chest pain, SOB, palpitations, dizziness Offers no other complaints OBJECTIVE: Vital Signs-as noted below Physical Exam: General Appearance:Moderately built and nourished, no apparent distress Head: normocephalic, Atraumatic Eyes: normal inspection, EOMI, PERRL Neck: supple, Trachea midline Respiratory/Chest: Normal breath sounds, CTA Cardiovascular: S1, S2, No murmur Abdomen/GI:Soft, Non tender, Bowel sounds present Extremities/Musculoskelatal:normal inspection, no edema Neurologic/Psych:AAOX3, grossly no focal neurological deficits Skin: normal color, warm Lab data as noted below. ASSESSMENT & PLAN: Chest Fluttering: R/O ACS Likely secondary to anxiety H/O recent STEMI/Vasospastic angina in setting of uncontrolled hyperthyroidism S/P balloon angioplasty to the apical portion of the LAD, severe ostial vasospasm RCA Troponin trending upwards Continue IV heparin for now Continue aspirin, clopidogrel, Cardizem statin on hold Cardiology consulted Ativan PRN for anxiety Uncontrolled Hyperthyroidism: H/O Graves' disease TSH: TSH:0.005 T4:3.31>>>TSH:0.005 T4:2.9 Slowly Improving Continue Methimazole, Propranolol, prednisone taper Prednisone 20mg Day 2/3, then taper to 10mg for 3 days Has follow up with on at 8:50AM Transaminitis: Likely secondary to recent PA and statin Liver USD pending Monitor LFTS Hold statin for now Leukocytosis: Secondary to steroids Afebrile monitor Hyperlipidemia Hold Lipitor for now DVT px: on IV heparin Code status: full code Disposition: Monitor in Tele Upcoming Appointments Follow up with on 03/11/17 at 12:45pm Follow up with Endocrinology Dr. Hoa Waldrop on 03/13/17 at 8:50 Am Vital Signs: Date Time Temp Pulse Resp B/P (MAP) Pulse Ox O2 Delivery O2 Flow Rate FiO2 03/09/17 08:00 Room Air 03/09/17 07:10 36.8 71 18 109/57 (74) 97 Room Air 03/09/17 04:00 Room Air 03/09/17 04:00 36.6 56 18 101/54 (70) 97 Room Air 03/09/17 01:46 36.6 18 104/56 97 Room Air 03/09/17 01:14 64 18 109/54 98 03/08/17 23:50 77 18 120/61 97 Room Air 03/08/17 22:20 52 03/08/17 21:50 36.6 74 18 106/70 96 Room Air Lab Results: Results Past 24 Hours Test 03/08/17 22:10 03/09/17 01:54 03/09/17 05:21 03/09/17 09:44 Range/Units White Blood Count 19.02 19.16 4.8-10.8 K/uL Red Blood Count 4.70 4.47 4.2-5.4 M/uL Hemoglobin 14.8 13.1 12.0-16.0 g/dL Hematocrit 41.0 39.4 37-47 % Mean Corpuscular Volume 87.2 88.1 80-100 fL Mean Corpuscular Hemoglobin 31.5 29.3 25-34 pg Mean Corpuscular Hemoglobin Concent 36.1 33.2 32-36 g/dl RDW Standard Deviation 38.2 38.5 36.4-46.3 fL RDW Coefficient of Variation 11.9 12.0 11.5-14.5 % Platelet Count 340 286 130-400 K/uL Mean Platelet Volume 9.4 9.1 7.4-10.4 fL Activated Partial Thromboplast Time 22.3 20.3 21.0-31.0 SECONDS Partial Thromboplastin Ratio 0.9 0.8 Sodium Level 136 138 136-145 mmol/L Potassium Level 3.9 4.1 3.5-5.1 mmol/L Chloride Level 105 108 98-107 mmol/L Carbon Dioxide Level 25 26 21-32 mmol/L Anion Gap 6.0 4.0 3-11 mmol/L Blood Urea Nitrogen 16 15 7-18 mg/dl Creatinine 0.65 0.61 0.60-1.20 mg/dl Est Creatinine Clear Calc Drug Dose 121.4 128.8 ml/min Estimated GFR () 132.4 135.2 Estimated GFR (Non- 114.2 116.6 BUN/Creatinine Ratio 24.9 23.8 10-20 Random Glucose 118 84 70-99 mg/dl Calcium Level 8.1 7.9 8.5-10.1 mg/dl Magnesium Level 2.0 1.8-2.4 mg/dl Total Bilirubin 0.3 0.5 0.2-1 mg/dl Aspartate Amino Transf (AST/SGOT) 54 31 15-37 U/L Alanine Aminotransferase (ALT/SGPT) 176 140 12-78 U/L Alkaline Phosphatase 102 80 45-117 U/L Total Creatine Kinase 30 26-192 U/L Creatine Kinase MB < 0.5 0.5-3.6 ng/ml Creatine Kinase MB Ratio 0-3.0 Troponin I 2.270 2.880 3.590 0-0.045 ng/ml Total Protein 6.6 6.0 6.4-8.2 gm/dl Albumin 2.6 2.4 3.4-5.0 gm/dl Globulin 4.0 3.6 2.5-4.0 gm/dl Albumin/Globulin Ratio 0.7 0.7 0.9-2 Thyroid Stimulating Hormone (TSH) < 0.005 0.300-4.500 uIu/ml Free Thyroxine 2.90 0.80-1.60 ng/dl Free Triiodothyronine 4.90 2.30-4.20 pg/ml Neutrophils (%) (Auto) 61.3 % Lymphocytes (%) (Auto) 22.3 % Monocytes (%) (Auto) 12.3 % Eosinophils (%) (Auto) 0.9 % Basophils (%) (Auto) 0.2 % Neutrophils # (Auto) 11.75 1.4-6.5 K/uL Lymphocytes # (Auto) 4.27 1.2-3.4 K/uL Monocytes # (Auto) 2.35 0.11-0.59 K/uL Eosinophils # (Auto) 0.18 0-0.5 K/uL Basophils # (Auto) 0.03 0-0.2 K/uL Immature Granulocyte % (Auto) 3.0 % Immature Granulocyte # (Auto) 0.58 0.00-0.02 K/uL Prothrombin Time 10.7 9.0-12.0 SECONDS Prothromb Time International Ratio 1.0 0.9-1.1
[2017-03-09] MEDS: HEPARIN 25,000 UNIT/500ML D5W 500 ML IV PRN ×2 (08:11→15:34)
[2017-03-09] MEDS ORDERED: ASPIRIN 81 MG ECTAB PO SCH (09:00)
[2017-03-09] MEDS ORDERED: PROPRANOLOL HCL 60 MG LA CAP PO SCH (09:00)
[2017-03-09] MEDS ORDERED: ENOXAPARIN 40 MG/0.4 ML SYR SC SCH (09:00)
[2017-03-09] MEDS ORDERED: CLOPIDOGREL BISULFATE 75 MG TAB PO SCH (09:00)
[2017-03-09] MEDS ORDERED: ATORVASTATIN 10 MG TAB PO SCH (09:00)
[2017-03-09] MEDS ORDERED: DILTIAZEM HCL 120 MG CAPCR PO SCH (09:00)
[2017-03-09] MEDS ORDERED: METHIMAZOLE 5 MG TAB PO SCH (09:00)
[2017-03-09] MEDS ORDERED: PERFLUTREN LIPID MICROSPHERE (DEFINITY) IV ONE (09:36)
--- NOTE | 2017-03-09 11:12 | CARDIOLOGY CONSULTATION ---
DATE OF CONSULTATION: 03/09/2017 REFERRING PHYSICIAN: Dg Weston MD HOSPITALIST: Sanjay Cline MD REASON FOR CONSULTATION: Recent ST elevation MS, recurrent chest discomfort with elevated troponin, and coronary vasospasm. HISTORY OF PRESENT ILLNESS: Ms. Mosley is a 37-year-old female who was seen in cardiology consultation per the request of Dr. Weston for recurrent chest discomfort and elevated troponin. The patient was recently admitted with STEMI. Cardiac catheterization revealed vasospasm of the distal LAD and distal obtuse marginal vessel. Balloon angioplasty was performed to the LAD. The patient was started on intravenous and oral Cardizem. Propranolol added for thyrotoxic storm. 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 The patient was discharged to home and faired well for approximately 2 days. Yesterday, she noted forceful heartbeats and palpitations. She noted "air bubble" in her chest. The discomfort was rated as mild. She became quite anxious due to her recent medical issues. She came to the Emergency Room, noted to have mildly elevated troponin. ECG demonstrated biphasic lateral T waves. I was contacted by the ER physician approximately 12:30 a.m. I recommended observation admission for repeat troponins and telemetry monitoring. Overnight, the patient's troponins have trended up to approximately 3.5. Repeat ECG performed this morning demonstrates no acute ST changes. She is chest pain free and feeling well this morning. She has not been evaluated by endocrinology to date for her thyrotoxicosis and thyroid storm. Repeat resting 2D transthoracic echo is ordered. Cardiac catheterization films were again reviewed personally this a.m. REVIEW OF SYSTEMS: Pertinent positive noted above, a comprehensive 10-system review is otherwise negative. PAST MEDICAL HISTORY: 1. Recent STEMI, status post balloon angioplasty, apical LAD and presumed underlying vasospastic angina secondary to thyrotoxicosis. 2. Hyperthyroidism. 3. Palpitations. PAST SURGICAL HISTORY: 1. Appendectomy. 2. Cholecystectomy. 3. Recent cardiac catheterization with balloon angioplasty of the LAD. SOCIAL HISTORY: Denies family history of premature CAD, sudden cardiac , or dysrhythmia. SOCIAL HISTORY: She is and has a daughter. She is a lifelong smoker, does not use alcohol. ALLERGIES: No known drug allergies. CURRENT OUTPATIENT MEDICATIONS: 1. Aspirin 81 mg daily. 2. Atorvastatin 10 mg daily. 3. Plavix 75 mg daily. 4. Diltiazem CD 120 mg. 5. Methimazole 20 mg twice daily. 6. Prednisone 10 mg daily. 7. Propranolol 60 mg daily. DIAGNOSTIC DATA: Chest x-ray on admission, no active disease in the chest with no significant change from prior studies. LABORATORY DATA: Sodium 138, potassium 4.1, chloride 108, CO2 is 26, BUN is 15, and creatinine 0.61. Initial troponin of 2.27 with a peak troponin this morning of 3.590. White blood cell count 19.16, hemoglobin is 13.1, and platelet count is 286. INR is 1.0. Telemetry demonstrates sinus rhythm. ECG performed this morning demonstrates sinus rhythm with sinus arrhythmia, cannot exclude age-indeterminate inferior infarct, poor R-wave progression, cannot exclude age indeterminate anterior infarct. No significant change compared to the prior study. PHYSICAL EXAMINATION: VITAL SIGNS: Temperature is 36.8 degrees centigrade, pulse 71 beats per minute and regular, respiratory rate is 18 breaths per minute, blood pressure 109/57. SaO2 is 97% on room air. GENERAL: NAD, awake, alert and oriented x3. HEENT: Mucous membranes are moist. No scleral icterus. Conjunctivae pink. NECK: Supple without JVD or HJR. No carotid bruit. HEART: Regular with a normal S1 and S2. There is no murmur, rub, or gallop. LUNGS: Clear without rales, rhonchi or wheeze. ABDOMEN: Soft, nontender. No rebound or guarding. Normal bowel sounds. EXTREMITIES: Warm and dry. There is no clubbing, cyanosis, or edema. NEUROLOGIC: Demonstrates no focal deficit. FINAL IMPRESSION: 1. A 37-year-old female with recent ST-elevation myocardial infarction secondary to presumed thyrotoxicosis/thyroid storm with coronary vasospasm. The patient returns to the hospital with recurrent NSTEMI. Troponins have trended upward mildly. Her repeat resting echo is pending. ECG is stable this a.m. without dysrhythmias on telemetry. I am concerned regarding possible thrombotic / cardioembolic event after review of coronary angiography and recent palpitations in setting of uncontrolled hyperthyroidism. 2. Hyperthyroidism with recent thyroid storm, possibly exacerbated by iodine from both a CT angiogram and cardiac catheterization. PLAN AND RECOMMENDATIONS: The patient's recurrent discomfort and troponin elevation are possibly related to vasospastic angina vs. thrombotic / cardioembolic event. She is status post POBA to the distal LAD. We will continue intravenous heparin for the time being as well as aspirin, Plavix, diltiazem, propranolol, and low-dose atorvastatin. Depending on how the patient progresses during hospitalization, we would consider transition Plavix to Coumadin. Cardizem-CD will be titrated to 180 mg daily. I will continue to follow closely during hospitalization. A repeat echo is pending at this time. Consider ROX to exclude source of embolus pending review. Addendum: Repeat echocardiogram reviewed demonstrated lateral and posterior lateral wall motion abnormality. Recommend transfer to [facility] for repeat cardiac catheterization, ROX, and endocrinology consultation. Hypercoagulable lab evaluation ordered. Continue IV heparin at this time. 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 50 minutes of critical care spent in evaluation, coordinating plan of care, discussion with family and consultants and arranging transfer to tertiary care center. CHRISTOPHER
[2017-03-09 12:21] VITALS: BP 105/54; PULSE 60; TEMP 36.7; O2SAT 95
--- NOTE | 2017-03-09 12:56 | ECHOCARDIOGRAM REPORT ---
*NOTICE TO RECEIVING [employer] This information is strictly Confidential and protected under [place] law. [place] law prohibits you from making any further disclosure of this information unless further disclosure is expressly permitted by the written consent of the person to whom it pertains or is authorized by law. A general authorization for the release of medical or other information is not sufficient for this purpose. Hospital accepts no responsibility if the information is made available to any other person, INCLUDING THE PATIENT. Interpretation Summary * Name: AURE DUNAWAY Study Date: 03/09/2017 09:15 AM BP: 109/57 mmHg * Patient Location: [facility] HR: 71 * : 1980 (M/d/yyyy) Gender: Female Height: 64 in * Age: 37 yrs Ethnicity: CA Weight: 171 lb * Ordering Physician: Dg Weston * Referring Physician: Self, Referred * Performed By: Tiffany Almaraz RDCS * * Reason For Study: troponin elevation * BSA: 1.8 m2 * Limited views were obtained. * Compared to prior study, changes are noted. * -- Conclusions -- * Ejection Fraction = 60-65%. * The mid lateral wall is severely hypokinetic to akinetic. * The apical lateral wall hypokinetic, * The mid and apical posterior wall is severely hypokinetic. * The remaining myocardial wall segements are hyperdynamic. * Compared to prior study, lateral and posterior lateral wall motion abnormality is present. Procedure Details * A two-dimensional transthoracic echocardiogram was performed. * A contrast injection of Definity was performed to improve assessment of LV function. * Contrast was injected into an intravenous site in the right arm. * One vial of Definity ultrasound contrast was diluted in normal saline to a total volume of 10 ml. A total of '2' ml of solution was administered during imaging. * Lot # [id number] of Definity utilized for procedure. * Expiration date MAR 07. * The attending nurse who injected the contrast agent was Pa Sands RN. Left Ventricle * Ejection Fraction = 60-65%. * The mid lateral wall is severely hypokinetic to akinetic. The apical lateral wall hypokinetic, The mid and apical posterior wall is severely hypokinetic. The remaining myocardial wall segements are hyperdynamic. Right Ventricle * The right ventricular cavity size is normal (basal dimension <4.2 cm in right ventricular apical 4-chamber view). * The right ventricular systolic function is normal. Mitral Valve * There is no mitral valve stenosis. Aortic Valve * The aortic valve is trileaflet. * Aortic stenosis is absent. MMode 2D Measurements and Calculations IVSd 0.90 cm LVIDd 4.2 cm LVIDs 2.7 cm LVPWd 0.85 cm IVS/LVPW 1.1 FS 36.7 % EDV(Teich) 79.1 ml ESV(Teich) 26.2 ml EF(Teich) 66.9 % EDV(cubed) 74.7 ml ESV(cubed) 19.0 ml EF(cubed) 74.6 % LV mass(C)d 114.6 grams LV mass(C)dI 62.6 grams/m\S\2 CO(Teich) 3.3 l/min CI(Teich) 1.8 l/min/m\S\2 SV(Teich) 52.9 ml SI(Teich) 28.9 ml/m\S\2 CO(cubed) 3.5 l/min CI(cubed) 1.9 l/min/m\S\2 SV(cubed) 55.8 ml SI(cubed) 30.5 ml/m\S\2 LA dimension 3.1 cm LVAd ap4 34.1 cm\S\2 LVLd ap4 8.6 cm EDV(MOD-sp4) 110.0 ml LVAs ap4 20.6 cm\S\2 LVLs ap4 7.0 cm ESV(MOD-sp4) 50.5 ml EF(MOD-sp4) 54.1 % LVAd ap2 35.1 cm\S\2 LVLd ap2 8.8 cm EDV(MOD-sp2) 117.0 ml LVAs ap2 18.5 cm\S\2 LVLs ap2 7.0 cm ESV(MOD-sp2) 41.1 ml EF(MOD-sp2) 64.9 % CO(MOD-sp4) 3.7 l/min CI(MOD-sp4) 2.0 l/min/m\S\2 SV(MOD-sp4) 59.5 ml SI(MOD-sp4) 32.5 ml/m\S\2 CO(MOD-sp2) 4.7 l/min CI(MOD-sp2) 2.6 l/min/m\S\2 SV(MOD-sp2) 75.9 ml SI(MOD-sp2) 41.5 ml/m\S\2
[2017-03-09] MEDS ORDERED: LORAZEPAM 0.5 MG TAB PO STA (14:46)
[2017-03-09] MEDS ORDERED: HEPARIN IV BOLUS 4,000 UNIT in SYRINGE 0 ML IV ONE (15:15)
[2017-03-09 16:13] VITALS: BP 112/66; PULSE 62; TEMP 36.7; O2SAT 98
--- NOTE | 2017-03-09 18:54 | Discharge Summary ---
Discharge Summary Date of Service Mar 09, 2017. Discharge Summary Admission Date: Mar 09, 2017 at 06:44 Principal Diagnosis: NSTEMI, uncontrolled Hyperthyroidism Procedures: Liver USD: 1. Unremarkable sonographic assessment of the liver. 2. Status post cholecystectomy. CXR: No active disease in the chest and no significant change from recent prior studies. ECHO: * Ejection Fraction = 60-65%. * The mid lateral wall is severely hypokinetic to akinetic. * The apical lateral wall hypokinetic, * The mid and apical posterior wall is severely hypokinetic. * The remaining myocardial wall segements are hyperdynamic. * Compared to prior study, lateral and posterior lateral wall motion abnormality is present. Consultations: Cardiology Pending Studies/Follow-Up: Follow up with at [facility] for further care Admission Information HPI (per Admitting provider): CHIEF COMPLAINT: Chest fluttering. HISTORY OF PRESENT ILLNESS: History obtained from patient and records. Medical history is significant for history of hyperthyroidism, history of MO 2 to vasospastic angina. Recent confinement was a few days ago for inferolateral ST elevation myocardial infarction secondary to vasospastic angina secondary to uncontrolled Graves' disease. Patient underwent balloon angioplasty to apical portion of LAD. A 2D echo at that time during confinement showed EF of 70%, normal LV wall thickness and hyperdynamic LV. Discharged 2 days ago. Patient compliant with cardiac medications. Patient was discharged on Methimazole, steroid course for hyperthyroidism as per Endocrinology recommendations. Outpx Endocrinology appointment slated for next week. 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 Last night, the patient noted left-sided chest fluttering, no shortness of breath. Different from chest pain which brought her to the hospital a few days ago. Currently comfortable after receiving Ativan in the ER. Physical Exam (per Admitting): PHYSICAL EXAMINATION: VITAL SIGNS: Blood pressure was noted to be 106/70, pulse rate 70 RR 18, temp 36.6 and sats 96 on room air. GENERAL: Noted to be slightly anxious, no respiratory distress. SKIN: Normal color. HEENT: [place] palpebral conjunctivae. Dry mucosa. NECK: No JVD. supple CHEST: Clear to auscultation. HEART: Regular rate and rhythm. ABDOMEN: Soft. EXTREMITIES: No edema. No tenderness NEUROLOGIC: No gross focality. Hospital Course Chest Fluttering: R/O ACS Likely secondary to anxiety H/O recent STEMI/Vasospastic angina in setting of uncontrolled hyperthyroidism S/P balloon angioplasty to the apical portion of the LAD, severe ostial vasospasm RCA Troponin trending upwards Continue IV heparin for now Continue aspirin, clopidogrel, Cardizem statin on hold Cardiology consulted Ativan PRN for anxiety Uncontrolled Hyperthyroidism: H/O Graves' disease TSH: TSH:0.005 T4:3.31>>>TSH:0.005 T4:2.9 Slowly Improving Continue Methimazole, Propranolol, prednisone taper Prednisone 20mg Day 2/3, then taper to 10mg for 3 days Has follow up with on at 8:50AM Transaminitis: Likely secondary to recent [place] and statin Liver USD pending Monitor LFTS Hold statin for now Leukocytosis: Secondary to steroids Afebrile monitor Hyperlipidemia Hold Lipitor for now DVT px: on IV heparin Code status: full code Disposition: Monitor in Tele Upcoming Appointments Follow up with on 03/11/17 at 12:45pm Follow up with Endocrinology Dr. Hoa Waldrop on 03/13/17 at 8:50 Am Addendum: Per Cardiology 's Note: PLAN AND RECOMMENDATIONS: The patient's recurrent discomfort and troponin elevation are possibly related to vasospastic angina vs. thrombotic / cardioembolic event. She is status post POBA to the distal LAD. We will continue intravenous heparin for the time being as well as aspirin, Plavix, diltiazem, propranolol, and low-dose atorvastatin. Depending on how the patient progresses during hospitalization, we would consider transition Plavix to Coumadin. Cardizem-CD will be titrated to 180 mg daily. I will continue to follow closely during hospitalization. A repeat echo is pending at this time. Addendum: Repeat echocardiogram reviewed demonstrated lateral and posterior lateral wall motion abnormality. Recommend transfer to [facility] for repeat cardiac catheterization and endocrinology consultation. Hypercoagulable lab evaluation ordered. Continue IV heparin as bridge to coumadin at this time. 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 Total time spent on discharge = This includes examination of the patient, discharge planning, medication reconciliation, and communication with other providers. Discharge Instructions Patient was discharged to [facility] for further care.
[2017-03-10] MEDS ORDERED: DILTIAZEM HCL 180 MG CAPCR PO SCH (09:00)
[2017-03-17 13:07] LABS: ANTITHROMBINIII ACTIVITY** 150 % activity (80-120); B2 GLYCOPROTEIN IGA <9 SAU (<=20); B2 GLYCOPROTEIN IGG <9 SGU (<=20); B2 GLYCOPROTEIN IGM <9 SMU (<=20); DRVVT MIX INTERPRETAION Not Indicated; LAC PTT SCREEN 31 sec (<=40); PHOSPHATIDYLSERINE IGA <20 U/mL (<20); PHOSPHATIDYLSERINE IGG <10 U/mL (<10); PHOSPHATIDYLSERINE IGM <25 U/mL (<25); PROTEIN C ACTIVITY** TC 1777X 182 % (70-180); PROTEIN S ACT(FUNCT)**1779X 59 % (60-140)
[2017-04-07] MEDS ORDERED: CMD/25 PO (15:55)
[2017-04-07] MEDS ORDERED: PRENTAB26 PO (15:55)
== END 2017-03-09 18:00 | disposition short-term general hospital (02) | DRG 282 ==
LOC: C.EDB 21:42 → C.2E 03-09 00:39 → ENRESERV 03-09 01:09 → OBSVTOIN 03-09 06:44
PROVIDERS: ADMIT Internal Medicine; ATTEND Internal Medicine
DX: I22.2 Subsequent non-ST elevation (NSTEMI) myocardial infarction (principal); I21.19 ST elevation (STEMI) myocardial infarction involving other coronary artery of inferior wall; E05.00 Thyrotoxicosis with diffuse goiter without thyrotoxic crisis or storm; T50.8X5A Adverse effect of diagnostic agents, initial encounter; Y92.238 Other place in hospital as the place of occurrence of the external cause; D72.829 Elevated white blood cell count, unspecified; T38.0X5A Adverse effect of glucocorticoids and synthetic analogues, initial encounter; R74.0 Nonspecific elevation of levels of transaminase and lactic acid dehydrogenase [LDH]; R00.2 Palpitations; E78.5 Hyperlipidemia, unspecified; F41.9 Anxiety disorder, unspecified; Z98.61 Coronary angioplasty status; Z79.02 Long term (current) use of antithrombotics/antiplatelets; Z79.82 Long term (current) use of aspirin; Z79.899 Other long term (current) drug therapy

== ENCOUNTER 2017-04-14 14:36 | Emergency (ER) | payer BC ==
[~2017-04-14] VITALS: Ht 165.1 cm; Wt 77.2 kg
[~2017-04-14 14:36] MED LIST changes: +CMD/25 PO; -CRDCD120 PO; -INDSR60 PO; -LPT10 PO; -METH-589 PO; -PLV75 PO; -PRED10TA PO; +PRENTAB26 PO
[2017-04-14 14:45] VITALS: TEMP 37; Ht 165.1 cm; Wt 77.2 kg
[2017-04-14] MEDS ORDERED: WARF5TAB7 PO (15:00)
[2017-04-14] MEDS ORDERED: METH10TA6 PO (15:00)
[2017-04-14] MEDS ORDERED: ASPI81TA28 PO (15:00)
[2017-04-14] MEDS ORDERED: ATOR10TA88 PO (15:01)
[2017-04-14] MEDS ORDERED: POTA10CA28 PO (15:01)
[2017-04-14] MEDS ORDERED: LSX40 PO (15:01)
[2017-04-14] MEDS ORDERED: METO25TA3 PO (15:01)
[2017-04-14] MEDS ORDERED: LORA-741 PO (15:02)
[2017-04-14] MEDS ORDERED: ESCI1TAB6 PO (15:02)
--- NOTE | 2017-04-14 15:15 | EMERGENCY ROOM VISIT NOTE ---
History Report prepared by Riki: Ranjit Smith Under the Supervision of: Dr. Naga Robins D.O. First contact with patient: 14:56 Chief Complaint: CHEST PAIN Stated Complaint: RIGHT CHEST PAIN Nursing Triage Summary: pt states heart attack 03/03/17. had heart cath. no stents. pt c/o right upper chest pain that radiates to right shoulder. "i don't know if I pulled a muscle or not." denies SOB History of Present Illness The patient is a 37 year old female who presents to the Emergency Room with complaints of right sided chest pain that began last night. Her pain is only present when she takes a breath. When she does this, her pain radiates into her back. 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 She then received an open heart procedure to remove a clot in her heart 1 week later. She notes that she has been having some heart palpitations intermittently the past couple of days. She is having some rhinorrhea currently. She denies any cough, fevers, or vomiting. Source of History: patient Onset: last night Position: chest (right) Symptom Intensity: mild Quality: sharp Timing: intermittent Modifying Factors (Worsening): breathing Associated Symptoms: No fevers, No cough, No vomiting Note: She is having rhinorrhea. Review of Systems See HPI for pertinent positives & negatives. A total of 10 systems reviewed and were otherwise negative. Past Medical & Surgical Medical Problems: (1) Abdominal pain (2) ACS (acute coronary syndrome) (3) Acute cholecystitis (4) Chest discomfort (5) Leukocytosis (6) Sludge in gallbladder Surgical Problems: (1) Hx laparoscopic cholecystectomy (2) S/P appendectomy Family History FH: cancer FH: gallbladder disease FH: heart disease Hypertension Social History Smoking Status: Never Smoker Alcohol Use: none Drug Use: none Marital Status: Housing Status: lives with family Occupation Status: employed Current/Historical Medications Scheduled Aspirin (Aspirin Ec), 81 MG PO DAILY Atorvastatin (Lipitor), 10 MG PO DAILY Escitalopram Oxalate (Lexapro), 5 MG PO DAILY Furosemide (Furosemide), 40 MG PO QAM Methimazole (Methimazole), 20 MG PO BID Metoprolol Succ (Toprol Xl) (Toprol-Xl), 25 MG PO BID Multivit/Min/Iron/Fol Ac/Pren ( Vitamin), 1 TAB PO DAILY Potassium Chloride (Micro-K Ext Rel), 10 MEQ PO DAILY Warfarin Sod (Jantoven), 5 MG PO DAILY Scheduled PRN Lorazepam (Ativan), 0.5 MG PO Q6H PRN for Anxiety Allergies Coded Allergies: No Known Allergies (Verified , 04/14/17) Physical Exam Vital Signs Date Time Temp Pulse Resp B/P (MAP) Pulse Ox O2 Delivery O2 Flow Rate FiO2 04/14/17 16:42 76 24 113/64 99 04/14/17 15:21 83 04/14/17 15:21 99 Room Air 04/14/17 14:49 99 Room Air 04/14/17 14:45 37.0 87 22 115/77 99 Room Air Physical Exam GENERAL: Patient is awake, alert, and in no acute distress. Patient is resting comfortably and showing no signs of anxiety EYES: The conjunctivae are clear. The pupils are round and reactive. EARS, NOSE, MOUTH AND THROAT: The nose is without any evidence of any deformity. Mucous membranes are moist tongue is midline NECK: The neck is nontender and supple. RESPIRATORY: Normal respiratory effort is noted there is no evidence of wheezing rhonchi or rales CARDIOVASCULAR: Regular rate and rhythm noted there no murmurs rubs or gallops normal S1 normal S2 GASTROINTESTINAL: The abdomen is soft. Bowel sounds are present in all quadrants. Abdomen is nontender PELVIS: The Pelvis is stable. No tenderness to palpation is noted. BACK: No midline tenderness or or step-off noted range of motion in flexion extension as well as rotation no signs of muscle spasm noted MUSCULOSKELETAL/EXTREMITIES: There is no evidence of gross deformity full range of motion is noted in the hips and shoulders SKIN: There is no obvious evidence of any rash. There are no petechiae, pallor or cyanosis noted. NEUROLOGIC: Patient is awake alert and oriented x3 strength is symmetric patellar reflexes are 2+ bilaterally Medical Decision & Procedures ER Provider Diagnostic Interpretation: Chest x-ray was obtained in the emergency department. CHEST ONE VIEW PORTABLE HISTORY: Atypical CHEST PAIN COMPARISON: Chest 03/08/2017. FINDINGS: The lungs are clear. Cardiac silhouette is normal in size. No pleural effusions. No pneumothorax. Interval poststernotomy changes. IMPRESSION: No acute process. Electronically signed by: Nick Myers M.D. 04/14/2017 3:23 PM Dictated Date/Time: 04/14/2017 3:22 PM Laboratory Results 04/14/17 14:15 Red Blood Count 4.52, Mean Corpuscular Volume 87.6, Mean Corpuscular Hemoglobin 29.9, Mean Corpuscular Hemoglobin Concent 34.1, Mean Platelet Volume 8.9, Neutrophils (%) (Auto) 75.8, Lymphocytes (%) (Auto) 13.3, Monocytes (%) (Auto) 9.7, Eosinophils (%) (Auto) 0.6, Basophils (%) (Auto) 0.2, Neutrophils # (Auto) 9.62, Lymphocytes # (Auto) 1.69, Monocytes # (Auto) 1.23, Eosinophils # (Auto) 0.07, Basophils # (Auto) 0.03 04/14/17 14:15 Test 04/14/17 14:15 White Blood Count 12.69 K/uL (4.8-10.8) Red Blood Count 4.52 M/uL (4.2-5.4) Hemoglobin 13.5 g/dL (12.0-16.0) Hematocrit 39.6 % (37-47) Mean Corpuscular Volume 87.6 fL (80-100) Mean Corpuscular Hemoglobin 29.9 pg (25-34) Mean Corpuscular Hemoglobin Concent 34.1 g/dl (32-36) Platelet Count 310 K/uL (130-400) Mean Platelet Volume 8.9 fL (7.4-10.4) Neutrophils (%) (Auto) 75.8 % Lymphocytes (%) (Auto) 13.3 % Monocytes (%) (Auto) 9.7 % Eosinophils (%) (Auto) 0.6 % Basophils (%) (Auto) 0.2 % Neutrophils # (Auto) 9.62 K/uL (1.4-6.5) Lymphocytes # (Auto) 1.69 K/uL (1.2-3.4) Monocytes # (Auto) 1.23 K/uL (0.11-0.59) Eosinophils # (Auto) 0.07 K/uL (0-0.5) Basophils # (Auto) 0.03 K/uL (0-0.2) RDW Standard Deviation 45.8 fL (36.4-46.3) RDW Coefficient of Variation 14.2 % (11.5-14.5) Immature Granulocyte % (Auto) 0.4 % Immature Granulocyte # (Auto) 0.05 K/uL (0.00-0.02) Prothrombin Time 27.3 SECONDS (9.0-12.0) Prothromb Time International Ratio 2.5 (0.9-1.1) Activated Partial Thromboplast Time 37.0 SECONDS (21.0-31.0) Partial Thromboplastin Ratio 1.4 Anion Gap 12.0 mmol/L (3-11) Est Creatinine Clear Calc Drug Dose 131.0 ml/min Estimated GFR () 135.2 Estimated GFR (Non- 116.6 BUN/Creatinine Ratio 9.3 (10-20) Calcium Level 9.2 mg/dl (8.5-10.1) Total Bilirubin 0.3 mg/dl (0.2-1) Direct Bilirubin < 0.1 mg/dl (0-0.2) Aspartate Amino Transf (AST/SGOT) 14 U/L (15-37) Alanine Aminotransferase (ALT/SGPT) 30 U/L (12-78) Alkaline Phosphatase 107 U/L (45-117) Total Creatine Kinase 34 U/L (26-192) Creatine Kinase MB < 0.5 ng/ml (0.5-3.6) Creatine Kinase MB Ratio (0-3.0) Troponin I < 0.015 ng/ml (0-0.045) Total Protein 8.3 gm/dl (6.4-8.2) Albumin 3.7 gm/dl (3.4-5.0) Lipase 351 U/L (73-393) Thyroid Stimulating Hormone (TSH) 0.134 uIu/ml (0.300-4.500) Free Thyroxine 0.83 ng/dl (0.80-1.60) Human Chorionic Gonadotropin, Qual NEG (NEG) Laboratory results per my review. ECG Indication: chest pain Rate (beats per minute): 85 Rhythm: normal sinus Findings: T-wave inversion (inferior. apical, and lateral), no ectopy ED Course 1456: The patient was evaluated in room B5. A complete history and physical examination were performed. 1620: I discussed the patient's radiology and laboratory studies with Dr. Chase of Cardiology. He is comfortable with the patient being discharged. 1634: Upon reevaluation, the patient is resting. I discussed the results and treatment plan with her. She verbalized agreement of the treatment plan. She was discharged home. Medical Decision Differential diagnosis: Etiologies such as cardiac ischemia, aortic dissection, pulmonary embolism, pneumonia, pneumothorax, musculoskeletal, infections, pericarditis, myocarditis , esophageal rupture, gastrointestinal, as well as others were entertained. Nursing notes reviewed. The patient is a 37-year-old female who presented to emergency department for an evaluation of chest pain. The patient describes right-sided chest pain which was reproducible. She recently had open heart surgery for a thrombectomy. 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 I discussed patient's laboratory and radiographic studies with her. I also discussed her case with her primary customs compliance manager. At this time she does not appear to have any acute abnormality and her laboratory studies. Her cardiac biomarkers were negative. The patient's pain appears very reproducible I would wonder if this has anything to do with her recent surgery. I discussed follow-up with the patient. She was encouraged to rest and avoid any strenuous activity. She was also encouraged to follow-up with her primary care physician as well as her primary customs compliance manager as soon as possible. She was also encouraged return to the emergency Department immediately if symptoms change worsen or the need arises. Medication Reconcilliation Current Medication List: was personally reviewed by me Blood Pressure Screening Patient's blood pressure: Normal blood pressure Blood pressure disposition: Did not require urgent referral Consults Time Called: 1615 Consulting Physician: Dr. Chase - Cardiology Returned Call: 1620 We discussed the patient's case. He feels comfortable with the patient being discharged. Impression Primary Impression: Acute costochondritis Scribe Attestation The scribe's documentation has been prepared under my direction and personally reviewed by me in its entirety. I confirm that the note above accurately reflects all work, treatment, procedures, and medical decision making performed by me. Departure Information Dispostion Home / Self-Care Referrals Kuldeep Chase D.O. [place], Susan D.O. Forms Call Back Authorization, HOME CARE DOCUMENTATION FORM, IMPORTANT VISIT INFORMATION Patient Instructions ED Chest Pain Costochondritis, My [facility] [address] Additional Instructions Call your family as well as her primary customs compliance manager schedule a follow-up appointment. Rest and avoid any strenuous I could be. Continue all medications as prescribed. Return to the emergency department immediately if symptoms change worsen or the need arises.
[2017-04-14 15:21] VITALS: O2SAT 99
--- NOTE | 2017-04-14 15:25 | DIAGNOSTIC IMAGING REPORT ---
CHEST ONE VIEW PORTABLE HISTORY: Atypical CHEST PAIN COMPARISON: Chest 03/08/2017. FINDINGS: The lungs are clear. Cardiac silhouette is normal in size. No pleural effusions. No pneumothorax. Interval poststernotomy changes. IMPRESSION: No acute process. Electronically signed by: Nick Myers M.D. 04/14/2017 3:23 PM Dictated Date/Time: 04/14/2017 3:22 PM
[2017-04-14 15:27] LABS: BASO % 0.2 %; BASO ABS # 0.03 K/uL (0-0.2); COMPLETE YES; EOS % 0.6 %; HEMATOCRIT 39.6 % (37-47); IG% 0.4 %; LYMPH % 13.3 %; LYMPH ABS # 1.69 K/uL (1.2-3.4); MEAN CELL VOLUME 87.6 fL (80-100); MEAN CORPUSCULAR HEMOGLOBIN 29.9 pg (25-34); MEAN CORPUSCULAR HGB CONC 34.1 g/dl (32-36); MEAN PLATELET VOLUME 8.9 fL (7.4-10.4); MONO % 9.7 %; NEUT % 75.8 %; PLATELET COUNT 310 K/uL (130-400); RED BLOOD COUNT 4.52 M/uL (4.2-5.4); WHITE BLOOD COUNT 12.69 K/uL (4.8-10.8)
[2017-04-14 15:35] LABS: INR 2.5 (0.9-1.1); PARTIAL THROMBOPLASTIN RATIO 1.4; PROTHROMBIN TIME (PATIENT) 27.3 SECONDS (9.0-12.0)
[2017-04-14 15:45] LABS: ALT/SGPT 30 U/L (12-78); BLOOD UREA NITROGEN 6 mg/dl (7-18); BUN/CREATININE RATIO 9.3 (10-20); CALCIUM 9.2 mg/dl (8.5-10.1); CARBON DIOXIDE 23 mmol/L (21-32); CHLORIDE 105 mmol/L (98-107); CREATININE 0.61 mg/dl (0.60-1.20); GLUCOSE 104 mg/dl (70-99); POTASSIUM 3.4 mmol/L (3.5-5.1); PREG INTERNAL NEGATIVE QC NEG CLEAR BACKGROUND; PREG INTERNAL POSITIVE QC POS CONTROL LINE; SODIUM 140 mmol/L (136-145)
[2017-04-14 15:51] LABS: ALKALINE PHOSPHATASE 107 U/L (45-117); AST/SGOT 14 U/L (15-37)
[2017-04-14 16:13] LABS: THYROID STIMULATING HORMONE 0.134 uIu/ml (0.300-4.500)
[2017-04-14 16:42] VITALS: BP 113/64; PULSE 76; O2SAT 99
== END 2017-04-14 16:44 | disposition home or self-care (01) ==
LOC: C.EDB 14:38
DX: M94.0 Chondrocostal junction syndrome [Tietze] (principal); Z90.49 Acquired absence of other specified parts of digestive tract; Z90.89 Acquired absence of other organs; Z98.890 Other specified postprocedural states; Z82.49 Family history of ischemic heart disease and other diseases of the circulatory system; Z79.01 Long term (current) use of anticoagulants; Z79.82 Long term (current) use of aspirin

== ENCOUNTER → 2017-10-31 | Outpatient (CLI) | payer BC ==
[~2017-10-31] MED LIST changes: -ASPEC81 PO; +ASPI81TA28 PO; +ATOR10TA82 PO; -CMD/25 PO; +ESCI1TAB6 PO; +LORA-741 PO; +LSX40 PO; +METH10TA6 PO; +METO25TA3 PO; +POTA10CA28 PO; -TPZ5 PO; +WARF5TAB7 PO
--- NOTE | 2017-11-03 07:45 | MAMMOGRAPHY REPORT ---
BILATERAL DIGITAL SCREENING MAMMOGRAM TOMOSYNTHESIS WITH CAD: 10/31/2017 TECHNIQUE: Breast tomosynthesis in addition to standard 2D mammography was performed. Current study was also evaluated with a Computer Aided Detection (CAD) system. COMPARISON: Comparison is made to exams dated: 08/30/2016 mammogram and 08/24/2015 mammogram - [facility]. BREAST COMPOSITION: There are scattered areas of fibroglandular density in both breasts. FINDINGS: No suspicious masses, calcifications, or areas of architectural distortion are noted in ei ther breast. There has been no significant interval change compared to prior exams. Circumscribed be nign-appearing mass in the right upper outer quadrant is stable dating back to the 2016 exam and like ly represents an intramammary lymph node. IMPRESSION: ACR BI-RADS CATEGORY 2: BENIGN There is no mammographic evidence of malignancy. A 1 year screening mammogram is recommended. The pa tient will receive written notification of the results. Approximately 10% of breast cancers are not detected with mammography. A negative mammographic report should not delay biopsy if a clinically suggestive mass is present. Aleah Caba M.D. ah/:10/31/2017 12:57:01 Tools Developer: Darlin ARRIOLA(R)(M), [facility] letter sent: Normal 1/2 BI-RADS Code: ACR BI-RADS Category 2: Benign
== END | disposition home or self-care (01) ==
LOC: C.MAMM 10:12
PROVIDERS: ATTEND Family Medicine
DX: Z12.31 Encounter for screening mammogram for malignant neoplasm of breast (principal)